=== PATIENT | female | born 1995 | race Caucasian/White ===

== ENCOUNTER 2020-01-26 11:58 | Outpatient (CLI) | payer OTHER, SELFPAY ==
--- NOTE | ~2020-01-26 | MMUS_ITS ---
EXAMINATION: MM diagnostic jacki BI w charbel, US breast BI complete HISTORY: Bilateral breast lumps TECHNIQUE: ML, MLO and craniocaudal 3-D tomosynthesis images of both breasts were performed and synth etic 2-D images were generated. CAD analysis was submitted and interpreted. High resolution bilateral complete breast ultrasound was performed. COMPARISON: None BREAST PARENCHYMAL COMPOSITION: There are scattered areas of fibroglandular density. FINDINGS: MAMMOGRAPHIC FINDINGS: No suspicious mass, architectural distortion, malignant calcification, skin thickening or retraction of either breast is evident. ULTRASOUND: No suspicious mass or shadowing of either breast is detected. IMPRESSION: 1. No mammographic evidence of malignancy 2. Routine mammographic screening is recommended. BI-RADS Category 1: Negative Reviewed, dictated and finalized at location A. 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 No mammographic evidence of malignancy 2. Routine mammographic screening is recommended. BI-RADS Category 1: Negative
== END 2020-01-26 11:59 | disposition home or self-care (01) ==
LOC: ANHIMG 12:00
PROVIDERS: PCP Nurse Practitioner Family; Visit Provider Nurse Practitioner Family
DX: N63.10 Unspecified lump in the right breast, unspecified quadrant (principal); N63.20 Unspecified lump in the left breast, unspecified quadrant
CPT/HCPCS: 76641; 77062; 77066; G0279

== ENCOUNTER 2020-03-16 12:07 | Outpatient (NON) | payer OTHER, SELFPAY ==
[2020-03-17 00:16] LABS: SARS-CoV-2 RNA PCR Negative
== END 2020-03-16 12:08 ==
LOC: ANHCOVIDDT 12:09
PROVIDERS: PCP Nurse Practitioner Family; Visit Provider Family Medicine
DX: R05 Cough (principal); Z20.822 Contact with and (suspected) exposure to COVID-19
CPT/HCPCS: C9803; U0003; U0005

== ENCOUNTER 2020-07-22 11:46 | Emergency (ER) | payer OTHER, SELFPAY ==
--- NOTE | ~2020-07-22 | US_ITS ---
EXAMINATION: US abdomen limited DATE: 07/22/2020 17:10 INDICATION: Right upper quadrant pain TECHNIQUE: Multiple grayscale and Doppler ultrasound images of the abdomen were obtained. COMPARISON: 11/22/2014 FINDINGS: The head and body of the pancreas are normal. The pancreatic tail is obscured by bowel gas. The liver is normal with normal echogenicity and echotexture. No surface nodularity. Normal hepatope richi flow in the main portal vein. There is a questionable focal area of gallbladder wall thickening. No pericholecystic fluid or stones are identified. The normal common bile duct measures 4 mm. There w as no sonographic Rebolledo sign. IMPRESSION: 1. Questionable focal area of gallbladder wall thickening of unclear significance given the absence o f cholelithiasis, pericholecystic fluid, or sonographic Rebolledo sign. Reviewed, dictated and finalized at location A. IMPRESSION: 1. Questionable focal area of gallbladder wall thickening of unclear significan ce given the absence of cholelithiasis, pericholecystic fluid, or sonographic M urphy sign.
--- NOTE | ~2020-07-22 | XR_ITS ---
EXAMINATION: XR chest 2V EXAM DATE: 07/22/2020 12:05 INDICATION: Right-sided chest pain upon inspiration. TECHNIQUE: Frontal and lateral projections of the chest obtained and reviewed. There is no prior skylar dy for comparison. FINDINGS: The lungs are clear. There are no pleural effusions. The cardiomediastinal silhouette is within normal limits. There is no pneumothorax suspected. The bones and soft tissues are unremarkab le. IMPRESSION: No acute cardiopulmonary findings. Reviewed, dictated and finalized at location A.
--- NOTE | ~2020-07-22 | NM_ITS ---
EXAMINATION: NM pulmonary perfusion EXAM DATE: 07/22/2020 15:24 INDICATION: right rib pain, elevated troponin. TECHNIQUE: A perfusion lung scan was performed. The patient was injected with 5.3 mCi technetium 99m MAA and imaged. Modified PIOPED 2 criteria used for interpretation of perfusion without ventilation study (recent chest x-ray instead for comparison). Correlation is made to chest x-ray earlier same da te. FINDINGS: Homogeneous normal perfusion throughout lungs. IMPRESSION: Pulmonary embolism absent. Reviewed, dictated and finalized at location A. IMPRESSION: Pulmonary embolism absent.
[2020-07-22 11:50] VITALS: BP 135/98; PULSE 115; RESP 20; TEMP 37; O2SAT 100
--- NOTE | 2020-07-22 11:55 | ECG_ITS ---
Measurements Intervals [place] Rate: 114 P: 33 [place]: 161 QRS: 47 QRSD: 81 T: 0 QT: 296 QTc: 408 Interpretive Statements SINUS TACHYCARDIA BORDERLINE ST-T WAVE ABNORMALITY- ANT/INF LEADS BASELINE ARTIFACT- III, AVR, AVL ABNORMAL ECG Electronically Signed On 07-22-2020 12:05:18 CDT by Leroy Martin D.O.
[2020-07-22 12:04] LABS: Basophils Absolute Auto 0.1 K/mm3 (0.0-0.1); Basophils Percent Auto 0.5 % (0.2-1.2); Eosinophils Absolute Auto 0.2 K/mm3 (0-0.3); Eosinophils Percent Auto 1.3 % (0-4.4); Hematocrit 44.9 % (37.0-47.0); Hemoglobin 14.2 g/dL (12.0-15.0); Immature Granulocyte Absolute 0.08 K/mm3 (0.00-0.031); Immature Granulocyte Percent A 0.6 % (0-0.5); Lymphocytes Absolute Auto 3.99 K/mm3 (0.9-3.2); Lymphocytes Percent Auto 31.9 % (18.3-44.2); Mean Corpuscular HGB Conc 31.6 g/dl (32-36); Mean Corpuscular Hemoglobin 25.7 pg (26-34); Mean Corpuscular Volume 81.3 fl (80-100); Mean Platelet Volume 8.9 fl (7.4-10.4); Monocytes Absolute Auto 0.7 K/mm3 (0.1-0.6); Monocytes Percent Auto 5.4 % (2.6-8.5); Neutrophils Absolute Auto 7.6 K/mm3 (1.3-6.7); Neutrophils Percent Auto 60.3 % (45.5-73.1); Platelet Count Result 312 k/mm3 (150-375); Red Blood Count 5.52 M/mm3 (4.2-5.4); Red Cell Distribution Width 13.2 % (11.5-14.5); White Blood Count 12.5 K/mm3 (4.5-10.0)
[2020-07-22 12:23] LABS: Anion Gap 10 mmol/L (8-16); Blood Urea Nitrogen 7 mg/dL (7-17); Calcium 9.6 mg/dL (8.4-10.2); Carbon Dioxide 25 mmol/L (22-30); Chloride 105 mmol/L (98-107); Estimated CRCL calculation 94 ml/min; Estimated Glomerular Filt Rate > 60; Glucose 97 mg/dL (65-105); Potassium 3.4 mmol/L (3.4-5.0); Sodium 140 mmol/L (137-145)
--- NOTE | 2020-07-22 12:26 | ED.CHESTPAIN ---
HPI - Chest Pain General Chief Complaint: Chest Pain Stated Complaint: Chest Pain Time Seen by Provider: 07/22/20 12:05 Source: patient and RN notes reviewed Mode of arrival: ambulatory Limitations: no limitations History of Present Illness HPI narrative: This is a 24 year old female who presents for evaluation of pain under her right breast. She developed pain this morning and it has been intermittent. She reports she has pain with she breaths in. She has nausea but denies vomiting, fever, chills, diarrhea or urinary symptoms. She denies having URI, or cough. She does note she received her depot shot yesterday. Related Data Home Medications Medication Instructions Recorded Confirmed albuterol sulfate [ProAir HFA] INHALATION 07/22/20 medroxyprogesterone mg IM 07/22/20 Allergies Allergy/AdvReac Type Severity Reaction Status Date / Time amoxicillin Allergy Mild Rash Verified 03/14/19 18:38 aspirin Allergy Swelling Verified 07/22/20 11:56 of Lip/Tongue/Throat ibuprofen Allergy Swelling Verified 03/14/19 18:39 of Lip/Tongue/Throat Review of Systems Review of Systems: All systems reviewed & are unremarkable except as noted in HPI and below PMFSH Past Medical History Medical History Asthma Surgical History Surgical History No history of previous surgery Social History Social History (Updated 03/14/19 @ 19:27 by Alden Gamino) Smoking status: Former smoker Gender identity (if verbalized by the patient): Female Exam Const: General: no acute distress and alert Orientation/consciousness: patient oriented x3 Eyes: EOM: EOMs intact bilaterally Chest: Chest palpation & inspection: tenderness rib (right lower anterior) Resp: Effort & Inspection: normal respiratory effort and no retractions Auscultation: clear to auscultation bilaterally Cardio: Rate: regular rate Rhythm: regular rhythm Heart sounds: no murmurs GI: GI Palp: Yes Soft to palpation, Yes Tenderness to palpation present (GI) (RUQ), No Guarding due to palpation present (GI) and No Rigid due to palpation Auscultation: normal bowel sounds Skin: General skin exam: normal color Rashes: no rashes Neuro: General: patient oriented x3, moves all extremities and CN's II-XI intact bilaterally Extrem: General: normal to inspection and no pedal edema Psych: Mental Status: mental status grossly normal Affect: normal affect Course Reevaluation(s) Reevaluation #1: PAtient states she is ready for discharge home. She will follow up with PCP Date: 07/22/20 Time: 17:40 Vital Signs Vital signs: Vital Signs Temperature 98.6 F 07/22/20 11:50 Pulse Rate 115 H 07/22/20 11:50 Respiratory Rate 20 07/22/20 11:50 Blood Pressure 135/98 H 07/22/20 11:50 Pulse Oximetry 100 07/22/20 11:50 Temperature 98.6 F 07/22/20 11:50 Pulse Rate 107 H 07/22/20 18:05 Respiratory Rate 16 07/22/20 18:05 Blood Pressure 129/93 H 07/22/20 18:05 Pulse Oximetry 98 07/22/20 18:05 MDM - Chest Pain Lab Data Attestation: I reviewed the patient's lab results. Result diagrams: 07/22/20 11:58 07/22/20 11:58 Labs: Lab Results 07/22/20 07/22/20 07/22/20 Range/Units 11:58 11:58 11:58 WBC 12.5 H (4.5-10.0) K/mm3 RBC 5.52 H (4.2-5.4) M/mm3 Hgb 14.2 (12.0-15.0) g/dL Hct 44.9 (37.0-47.0) % MCV 81.3 (80-100) fl MCH 25.7 L (26-34) pg MCHC 31.6 L (32-36) g/dl RDW 13.2 (11.5-14.5) % Plt Count 312 (150-375) k/mm3 MPV 8.9 (7.4-10.4) fl Immature Gran % (Auto) 0.6 H (0-0.5) % Neut % (Auto) 60.3 (45.5-73.1) % Lymph % (Auto) 31.9 (18.3-44.2) % Meade % (Auto) 5.4 (2.6-8.5) % Eos % (Auto) 1.3 (0-4.4) % Baso % (Auto) 0.5 (0.2-1.2) % Lymph # (Auto) 3.99 H (0.9-3.2) K/mm3 Meade # (Auto) 0.7 H (0.1-
[2020-07-22 12:34] LABS: Troponin I < 0.012 ng/mL (0.000-0.034)
[2020-07-22 13:03] LABS: Prothrombin Time 13.8 Seconds (11.1-14.7)
[2020-07-22 13:04] LABS: Partial Thromboplastin Time 31.7 SECONDS (22.3-36.8)
[2020-07-22] MEDS: LACTATED RINGERS 1,000 ML 999 ML IV CONT (13:04)
[2020-07-22 13:06] LABS: D Dimer 0.52 ug/mL (<0.48)
[2020-07-22 13:11] LABS: Alanine Aminotransferase 28 U/L (4-35); Albumin Level 4.8 g/dL (3.5-5.1); Alkaline Phosphatase 97 U/L (38-126); Aspartate Amino Transferase 33 U/L (14-36); Bilirubin,Total 0.3 mg/dL (0.2-1.3); Lipase 44 U/L (23-300)
[2020-07-22 13:11] LABS: Add Urine Microscopic? YES; Appearance Urine Clear (Clear); Bacteria Urine Trace /hpf; Bilirubin Urine Negative (Negative); Blood Urine 1+ (Negative); Color Urine Straw (Yellow); Glucose Urine UA Negative (Negative); Ketones Urine Negative (Negative); Leukocyte Esterase Ur Trace LEU/UL (Negative); Nitrate Urine Negative (Negative); Protein Urine Negative (Negative); RBC Urine 0-2 /hpf (0-2); Specific Grav Ur 1.006 (1.001-1.035); Squamous Epithelial Cell Urine Moderate /hpf (Few); Urobilinogen Urine Negative mg/dL (<2.0); WBC Urine 0-3 /hpf
[2020-07-22 13:12] LABS: Lactic Acid Reflex 0.9 mmol/L (0.7-2.1)
--- NOTE | 2020-07-22 15:17 | PC.NURSE ---
Pt to nuclear med at this time
[2020-07-22] MEDS: SODIUM CHLORIDE 0.9% IV 1,000 ML 999 ML IV CONT (15:20)
[2020-07-22 15:26] LABS: Troponin I < 0.012 ng/mL (0.000-0.034)
--- NOTE | 2020-07-22 16:51 | PC.NURSE ---
to ultrasound at this time
[2020-07-22 18:05] VITALS: BP 129/93; PULSE 107; RESP 16; O2SAT 98
== END 2020-07-22 18:07 | disposition home or self-care (01) ==
PROVIDERS: Emergency Provider General Practice; PCP Nurse Practitioner Family
DX: R10.9 Unspecified abdominal pain (principal); J45.909 Unspecified asthma, uncomplicated; Z87.891 Personal history of nicotine dependence; R00.0 Tachycardia, unspecified; R94.31 Abnormal electrocardiogram [ECG] [EKG]; R93.2 Abnormal findings on diagnostic imaging of liver and biliary tract
CPT/HCPCS: 36415; 71046; 76705; 78580; 80048; 80076; 81001; 81025; 83605; 83690; 84484; 85025; 85380; 85610; 85730; 93005; 96360; 96361; 99284; A9540; J7030; J7120

== ENCOUNTER 2020-10-07 11:22 | Emergency (ER) | payer OTHER, SELFPAY ==
--- NOTE | ~2020-10-07 | XR_ITS ---
EXAMINATION: XR ankle LT min 3V, XR foot LT min 3V DATE: 10/07/2020 12:02 INDICATION: Lateral left foot and ankle pain post fall TECHNIQUE: 1. Anteroposterior, mortise, additional oblique and lateral view of the left ankle were obtained. 2. Dorsoplantar, two oblique and lateral views of the left foot were obtained. COMPARISON: None. FINDINGS: Alignment of the left foot and ankle is normal. No fracture or osteochondral lesion. Joint spaces are well maintained. No ankle joint effusion. Mild soft tissue swelling about the lateral malleolus. IMPRESSION: 1. No joint effusion or osseous abnormality. Reviewed, dictated and finalized at location A. IMPRESSION: 1. No joint effusion or osseous abnormality.
[2020-10-07 11:28] VITALS: BP 139/96; PULSE 106; RESP 16; TEMP 36.7; O2SAT 99
--- NOTE | 2020-10-07 13:08 | ED.LOWEXIN ---
HPI - Extremity Injury (Lower) General Chief Complaint: Extremity Injury, Lower Stated Complaint: foot injury Time Seen by Provider: 10/07/20 11:27 Source: RN notes reviewed History of Present Illness HPI Narrative: Patient presents emergency department from home for left foot and ankle pain. He states that yesterday she was walking and stepped in a hole twisting her left ankle she notes pain in her left anterior medial ankle as well as in her medial foot states she took Tylenol approximately an hour ago for the pain she denies any other injuries she denies any numbness or tingling of the extremities Related Data Home Medications Medication Instructions Recorded Confirmed albuterol sulfate [ProAir HFA] INHALATION 07/22/20 09/27/20 medroxyprogesterone mg IM 07/22/20 09/27/20 Allergies Allergy/AdvReac Type Severity Reaction Status Date / Time amoxicillin Allergy Mild Rash Verified 10/07/20 11:33 aspirin Allergy Swelling Verified 10/07/20 11:33 of Lip/Tongue/Throat clindamycin Allergy Itching Verified 10/07/20 11:33 ibuprofen Allergy Swelling Verified 10/07/20 11:33 of Lip/Tongue/Throat Review of Systems Review of Systems: Gen.: Denies fevers or chills Musculoskeletal: See HPI Neuro: Denies numbness, tingling, weakness Skin: Denies rash Endo: Denies DM PMFSH Past Medical History Medical History Anxiety Asthma GERD (gastroesophageal reflux disease) Headache Overweight (BMI 25.0-29.9) Surgical History Surgical History No history of previous surgery Family History Family History (Updated 09/27/20 @ 10:47 by Rox Coppola MA) Mother Cancer Social History Social History Smoking status: Former smoker Second hand tobacco smoke exposure: No Alcohol intake: current Alcohol use details: once a month-wine coolers Substance use: never Additional occupation/education comments: [employer] Gender identity (if verbalized by the patient): Female Spiritual care concerns: No Agree to blood products: Yes Exam Narrative: APPEARANCE: No acute distress, nontoxic, resting in bed Eyes: EOMI HEENT: Normocephalic, atraumatic, RESPIRATORY: No respiratory distress MUSCULOSKELETAl: Tender to palpation of the left anterior and medial ankle as well as the left medial foot no swelling or ecchymosis present no tenderness of the proximal fibula dorsalis pedis pulse 2+ neurovascular intact NEURO: Awake and alert. Following commands, speech normal, no focal deficits SKIN:: Warm, dry. Normal Color no rash or lesions Course Course Emergency Course: Discussed with patient results of workup and diagnosis. Discussed need for follow-up with primary care, proper use of medication, and reasons to return to the emergency department. Patient understands and agrees to current treatment plan Vital Signs Vital signs: Vital Signs Temperature 98.0 F 10/07/20 11:28 Pulse Rate 106 H 10/07/20 11:28 Respiratory Rate 16 10/07/20 11:28 Blood Pressure 139/96 H 10/07/20 11:28 Pulse Oximetry 99 10/07/20 11:28 Temperature 98.0 F 10/07/20 11:28 Pulse Rate 106 H 10/07/20 11:28 Respiratory Rate 16 10/07/20 11:28 Blood Pressure 139/96 H 10/07/20 11:28 Pulse Oximetry 99 10/07/20 11:28 MDM - Extremity Injury (Lower) Imaging Data Radiologist's impression: ITS Impressions Ankle X-Ray 10/07/20 12:27 IMPRESSION: 1. No joint effusion or osseous abnormality. Foot X-Ray 10/07/20 12:27 IMPRESSION: 1. No joint effusion or osseous abnormality. Discharge Plan Discharge Clinical Impression: Left ankle sprain Patient Disposition: Home, Self-Care Condition: Stable Instructions: Antibiotic Form, Ankle Sprain (ED) Additional Instructions: Return for increasing pain nu
== END 2020-10-07 13:36 | disposition home or self-care (01) ==
PROVIDERS: Emergency Provider Emergency Medicine; PCP Nurse Practitioner Family
DX: S93.402A Sprain of unspecified ligament of left ankle, initial encounter (principal); J45.909 Unspecified asthma, uncomplicated; K21.9 Gastro-esophageal reflux disease without esophagitis; E66.3 Overweight; Z68.28 Body mass index [BMI] 28.0-28.9, adult; Z87.891 Personal history of nicotine dependence; X50.9XXA Other and unspecified overexertion or strenuous movements or postures, initial encounter
CPT/HCPCS: 73610; 73630; 99283

== ENCOUNTER → 2020-11-12 08:28 | Outpatient (CLI) | payer OTHER, SELFPAY ==
[2020-11-12 18:57] LABS: SARS-CoV-2 RNA PCR Negative
== END ==
PROVIDERS: PCP Nurse Practitioner Family; Visit Provider Nurse Practitioner Family
DX: J02.9 Acute pharyngitis, unspecified (principal); Z20.822 Contact with and (suspected) exposure to COVID-19
CPT/HCPCS: C9803; U0003; U0005

== ENCOUNTER 2020-11-26 12:23 | Outpatient (CLI) | payer OTHER, SELFPAY ==
--- NOTE | 2020-11-26 | ECHO_ITS ---
Patient Info Name: Mani Ordaz Age: 25 years : 1995 Gender: Female Ht: 62 in Wt: 157 lbs BSA: 1.79 m2 HR: 105 bpm BP: 120 / 101 mmHg Technical Quality: Fair Exam Date: 11/26/2020 12:39 PM Exam Location: [facility] Patient Status: Outpatient Admit Date: 11/26/2020 Staff Ordering Physician: Clovis, Rosy BARBOZA Inspector Balance Bridge: Xiomara Beltrán RDCS Attending Provider: Clovis, Rosy BARBOZA Exam Type: CA echo doppler color flow Study Info Indications R55 - Syncope and collapse Complete two-dimensional, color flow and Doppler transthoracic echocardiogram is performed. Summary 1. Complete two-dimensional, color flow and Doppler transthoracic echocardiogram is performed. 2. Left ventricular chamber dimension is normal. 3. Left ventricular systolic function is normal, estimated at 60-65%. 4. The left ventricular diastolic function is grade I diastolic dysfunction. 5. E/e' 6 is not elevated. 6. Global longitudinal strain is abnormal at -15.8%. 7. There is trace mitral valve regurgitation. 8. No pulmonary hypertension, estimated pulmonary arterial systolic pressure is 22 mmHg. 9. There is trivial pericardial effusion. Left Ventricle E/e' 6 is not elevated. Global longitudinal strain is abnormal at -15.8%. Left ventricular chamber dimension is normal. Left ventricular systolic function is normal, estimated at 60-65%. The left ventricular diastolic function is grade I diastolic dysfunction. Right Ventricle Right ventricular chamber dimension is normal. Right ventricular systolic function is normal. Left Atria Left atrial chamber dimension is normal. Right Atria Right atrial chamber dimension is normal. Aortic Valve The aortic valve is trileaflet. There is no aortic valve stenosis. There is no aortic valve regurgitation. Pulmonic Valve There is no pulmonic regurgitation. Mitral Valve There is no mitral valve stenosis. There is trace mitral valve regurgitation. Tricuspid Valve There is no tricuspid valve regurgitation. No pulmonary hypertension, estimated pulmonary arterial systolic pressure is 22 mmHg. Pericardium/Pleural There is trivial pericardial effusion. Inferior Vena Cava Normal inferior vena cava with >50% collapse upon inspiration consistent with normal right atrial pressure, 5 mmHg. Aorta The aortic root size at the sinus of Valsalva is normal. Left Ventricular Outflow Tract Name Value Normal LVOT 2D LVOT Diameter 1.9 cm LVOT Doppler LVOT Peak Gradient 5 mmHg LVOT Mean Gradient 3 mmHg LVOT VTI 20 cm LVOT VTI/AV VTI Ratio 1.0 LVOT Stroke Volume 57 ml LVOT CO 5.9 l/min LVOT CI 3.3 l/min/m2 Pulmonic Valve Name Value Normal RVOT Doppler
== END 2020-11-26 12:24 | disposition home or self-care (01) ==
LOC: ANHCARD 12:24
PROVIDERS: PCP Nurse Practitioner Family; Visit Provider Nurse Practitioner Family
DX: R55 Syncope and collapse (principal)
CPT/HCPCS: 93306

== ENCOUNTER → 2021-03-11 03:33 | Outpatient (CLI) | payer OTHER, SELFPAY ==
[2021-03-12 22:39] LABS: SARS-CoV-2 RNA PCR Positive
== END ==
PROVIDERS: PCP Nurse Practitioner Family; Visit Provider Family Medicine
DX: U07.1 COVID-19 (principal)
CPT/HCPCS: C9803; U0003; U0005

== ENCOUNTER 2021-05-03 11:26 | Outpatient (CLI) | payer OTHER, SELFPAY ==
--- NOTE | ~2021-05-03 | US_ITS ---
EXAMINATION: US breast RT limited HISTORY: Palpable lump at the 9:00 location of the right breast TECHNIQUE: Limited right breast ultrasound is performed. COMPARISON: 01/26/2020 FINDINGS: There is no evidence of focal abnormal cystic or solid mass in the vicinity of the reported palpable abnormality of concern of the right breast IMPRESSION: No specific sonographic correlate is identified for the reported palpable abnormality of concern. Fur ther evaluation at this time should be based on clinical assessment. Continued follow-up physical exa mination is recommended. BI-RADS Category 1: Negative Reviewed, dictated and finalized at location A. 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 Further evaluation at this time should be based on clinical assessment. Continued follow-up physical examination is recommended. BI-RADS Category 1: Negative
== END 2021-05-03 11:27 | disposition home or self-care (01) ==
LOC: ANHIMG 11:27
PROVIDERS: PCP Nurse Practitioner Family; Visit Provider Obstetrics & Gynecology
DX: N63.0 Unspecified lump in unspecified breast (principal)
CPT/HCPCS: 76642

== ENCOUNTER 2021-08-16 17:27 | Emergency (ER) | payer OTHER, SELFPAY ==
--- NOTE | ~2021-08-16 | NM_ITS ---
EXAMINATION: NM pulmonary perfusion DATE: 08/16/2021 21:37 INDICATION: Dizziness, tachycardia, elevated d-dimer TECHNIQUE: 5.02 mCi Tc-99m MAA was administered intravenously for perfusion images. Scintigraphic jack ges of the chest were obtained. COMPARISON: X-ray chest, same date FINDINGS: Perfusion images show uniform activity, without defects. IMPRESSION: 1. Low probability for pulmonary embolism. Reviewed, dictated and finalized at location K.
--- NOTE | ~2021-08-16 | XR_ITS ---
EXAMINATION: XR chest 2V Exam Date/Time: 08/16/2021 18:15 CDT HISTORY: dizzness, palpitations Comparison: 07/22/2020. RESULT: Lines, tubes, and devices: None. Lungs and pleura: Clear. Cardiomediastinal silhouette: Stable cardiomediastinal silhouette. Other: No acute osseous or upper abdominal finding. IMPRESSION: No acute cardiopulmonary process. Reviewed, dictated and finalized at location K.
[2021-08-16 17:30] VITALS: BP 137/102; PULSE 119; RESP 18; TEMP 36.8; O2SAT 99
--- NOTE | 2021-08-16 17:50 | ED.ARRPALP ---
HPI - Arrhythmia/Palpitations General Chief Complaint: Arrhythmia/Palpitations Stated Complaint: high blood pressure/high hr Time Seen by Provider: 08/16/21 17:49 Source: patient Mode of arrival: ambulatory Limitations: no limitations History of Present Illness HPI narrative: Patient is a 25-year-old female, with history of asthma, who presents to the ED with report of dizziness. 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 She described the dizziness as though the room was spinning and that she was going to pass out. She did not lose consciousness. She states her heart was racing at that time. She was sent down by the employees in front of a fan and began to feel slightly better. Patient notes her blood pressure was elevated at that time. No history of hypertension. Initial blood pressure in ED 137/102. Repeat blood pressure approximately 30 minutes later normal at 138/87. Patient also reports having pain to her lateral abdomen on her left and right side in the ED bed. She states she was diagnosed with a UTI on 08/07 at [facility]. She is started on this Keflex and has been taking this as directed. She states her dysuria and urinary frequency have resolved, but she is now having mild pain in her sides. She is concerned the infection may have spread to her kidneys due to this pain. Currently, patient reports dizziness is resolved. She denies any headache, vision changes, fever, nausea, vomiting, chest pain, difficulty breathing. Related Data Home Medications Medication Instructions Recorded Confirmed albuterol sulfate 90 mcg/actuation inhalation 07/22/20 04/12/21 aerosol inhaler (ProAir HFA) medroxyprogesterone 150 mg/mL mg IM 07/22/20 04/12/21 intramuscular syringe Allergies Allergy/AdvReac Type Severity Reaction Status Date / Time amoxicillin Allergy Mild Rash Verified 06/22/21 10:37 Iodinated Contrast Media Allergy Mild Rash Verified 06/22/21 10:37 aspirin Allergy Swelling Verified 06/22/21 10:37 of Lip/Tongue/Throat clindamycin Allergy Itching Verified 06/22/21 10:37 ibuprofen Allergy Swelling Verified 06/22/21 10:37 of Lip/Tongue/Throat seafood AdvReac Mild Hives Uncoded 06/22/21 10:37 Review of Systems Review of Systems: CONSTITUTIONAL: Reports diaphoresis. Denies fever, chills. ENT: Denies vision changes. CARDIOVASCULAR: Reports racing palpitations. Denies chest pain or edema. RESPIRATORY: Denies cough or dyspnea. GASTROINTESTINAL: Reports pain to bilateral abdominal sides. Denies nausea, vomiting, or diarrhea. GENITOURINARY: Denies dysuria or hematuria. MUSCULOSKELETAL: Denies back pain, joint pain, or myalgia. NEUROLOGIC: Reports dizziness, improved. Denies syncope, headache, numbness, or weakness. All systems reviewed & are unremarkable except as noted in HPI and below [facility] Past Medical History Medical History Anemia Anxiety Asthma Breast lump or mass GERD (gastroesophageal reflux disease) Headache History of kidney stones Migraines Nipple discharge in antepartum period Overweight (BMI 25.0-29.9) Pneumonia Surveillance for Depo-Provera contraception Urinary tract infection Surgical History Surgical History No history of previous surgery Family History Family History (Updated 04/11/21 @ 15:23 by Sherie Brand) Mother Cancer Grandparent Diabetes mellitus paternal grandmother Hypertension paternal grandmother Other Seizure daughter Social History Social History Smoking status: Former smoker Second hand tobacco smoke exposure: No Alcohol intake: current Alcohol use details: once a month-wine coolers Substance use: never Additional occupation/education comments: [employer]
--- NOTE | 2021-08-16 17:53 | ECG_ITS ---
Measurements Intervals [place] Rate: 100 P: 36 [place]: 160 QRS: 54 QRSD: 85 T: 2 QT: 321 QTc: 415 Interpretive Statements SINUS TACHYCARDIA NONSPECIFIC ST ABNORMALITY ABNORMAL ECG COMPARED TO ECG 07/22/2020 11:54:54 NO SIGNIFICANT CHANGES Electronically Signed On 08-17-2021 9:59:07 CDT by Cory Lozano M.D.
[2021-08-16] MEDS: SODIUM CHLORIDE 0.9% IV 1,000 ML 999 ML IV CONT (17:58)
[2021-08-16 18:04] VITALS: BP 137/85; PULSE 101
[2021-08-16 18:05] VITALS: BP 138/87; PULSE 100
[2021-08-16 18:06] VITALS: BP 125/91; PULSE 103
[2021-08-16 18:13] LABS: Basophils Absolute Auto 0.1 K/mm3 (0.0-0.1); Basophils Percent Auto 0.5 % (0.2-1.2); Eosinophils Absolute Auto 0.2 K/mm3 (0-0.3); Eosinophils Percent Auto 1.4 % (0-4.4); Hematocrit 46.3 % (37.0-47.0); Hemoglobin 14.6 g/dL (12.0-15.0); Immature Granulocyte Absolute 0.07 K/mm3 (0.00-0.031); Immature Granulocyte Percent A 0.5 % (0-0.5); Lymphocytes Absolute Auto 3.97 K/mm3 (0.9-3.2); Mean Corpuscular HGB Conc 31.5 g/dl (32-36); Mean Corpuscular Hemoglobin 25.2 pg (26-34); Monocytes Absolute Auto 0.7 K/mm3 (0.1-0.6); Neutrophils Absolute Auto 9.7 K/mm3 (1.3-6.7); Neutrophils Percent Auto 65.6 % (45.5-73.1); Platelet Count Result 323 k/mm3 (150-375); Red Blood Count 5.79 M/mm3 (4.2-5.4); Red Cell Distribution Width 13.9 % (11.5-14.5); White Blood Count 14.7 K/mm3 (4.5-10.0)
[2021-08-16 18:23] LABS: Alanine Aminotransferase 29 U/L (6-35); Albumin Level 4.7 g/dL (3.5-5.1); Alkaline Phosphatase 116 U/L (38-126); Anion Gap 9 mmol/L (8-16); Aspartate Amino Transferase 28 U/L (14-36); Bilirubin,Total 0.3 mg/dL (0.2-1.3); Blood Urea Nitrogen 11 mg/dL (7-17); Calcium 9.5 mg/dL (8.4-10.2); Carbon Dioxide 23 mmol/L (22-30); Chloride 106 mmol/L (98-107); Estimated Glomerular Filt Rate > 60; Glucose 94 mg/dL (65-110); Potassium 3.8 mmol/L (3.4-5.0); Sodium 138 mmol/L (137-145)
[2021-08-16 18:35] LABS: Troponin I < 0.012 ng/mL (0.000-0.034)
[2021-08-16 19:03] LABS: D Dimer 0.55 ug/mL (<0.48)
[2021-08-16 19:30] LABS: Appearance Urine Clear (Clear); Bilirubin Urine Negative (Negative); Color Urine Yellow (Yellow); Glucose Urine UA Negative (Negative); Ketones Urine Trace mg/dL (Negative); Leukocyte Esterase Ur Negative LEU/UL (Negative); Nitrate Urine Negative (Negative); Protein Urine Negative (Negative); Urobilinogen Urine 0.2 mg/dL (<2.0); pH Urine 5.5 (5.0-9.0)
[2021-08-16 19:36] LABS: RBC Urine 0-2 /hpf (0-2); Squamous Epithelial Cell Urine Few /hpf (Few); Transitional Epi Cells Urine Rare /hpf (None Seen); WBC Urine 0-3 /hpf
[2021-08-16 19:44] LABS: Add Urine Microscopic? YES; Blood Urine Trace-Intact (Negative)
--- NOTE | 2021-08-16 21:22 | PC.NURSE ---
patient taken to imaging for VQ scan at this time
[2021-08-16 22:25] VITALS: BP 118/85; PULSE 112; RESP 23; O2SAT 98
== END 2021-08-16 22:26 | disposition home or self-care (01) ==
PROVIDERS: Physician Assistant; Emergency Provider Emergency Medicine; PCP Nurse Practitioner Family
DX: R42 Dizziness and giddiness (principal); R00.2 Palpitations; J45.909 Unspecified asthma, uncomplicated; K21.9 Gastro-esophageal reflux disease without esophagitis; Z87.442 Personal history of urinary calculi; Z87.01 Personal history of pneumonia (recurrent); Z87.440 Personal history of urinary (tract) infections; E66.3 Overweight; Z87.891 Personal history of nicotine dependence; R00.0 Tachycardia, unspecified; R94.31 Abnormal electrocardiogram [ECG] [EKG]
CPT/HCPCS: 36415; 71046; 78580; 80053; 81001; 81025; 84484; 85025; 85380; 93005; 96360; 99284; A9540; J7030

== ENCOUNTER 2021-10-14 20:37 | Emergency (ER) | payer OTHER, SELFPAY ==
--- NOTE | ~2021-10-14 | CT_ITS ---
EXAMINATION: CT abdomen pelvis wo con DATE: 10/14/2021 21:35 INDICATION: Right upper quadrant abdominal pain. History of kidney stones. TECHNIQUE: Computed tomography (CT) of the abdomen and pelvis was performed without intravenous contr ast. The dose-length product was 442.02 mGy-cm. Automated exposure control and iterative reconstruction technique were employed. COMPARISON: None. FINDINGS: Lung bases are unremarkable. Heart size normal. No significant pleural or pericardial effus ion. Colonic diverticulosis without evidence for diverticulitis. No significant vascular abnormality. No lymphadenopathy. Gallbladder is contracted. The liver, spleen, pancreas, adrenal glands and kidne ys are unremarkable. No renal or ureteral stones. No hydronephrosis. Bladder is decompressed limiting evaluation for wall thickening. No abnormal pelvic masses or fluid collections. Small fat-containing umbilical hernia. No acute osseous abnormality. IMPRESSION: 1. No acute abdominal abnormality. Reviewed, dictated and finalized at location A.
--- NOTE | 2021-10-14 20:56 | ED.ABDPAIN ---
HPI - Abdominal Pain General Chief Complaint: Abdominal Pain Stated Complaint: upper right quadrant pain Time Seen by Provider: 10/14/21 20:48 Source: patient Mode of arrival: ambulatory Limitations: no limitations History of Present Illness HPI narrative: This is a 26 year old female that presents to the ER for RUQ abdominal pain present over the last week. Reports the pain is constant in nature. No known alleviating or exacerbating factors. She has been taking Tylenol with little relief. Denies fever, vomiting, dysuria or hematuria. Related Data Home Medications Medication Instructions Recorded Confirmed albuterol sulfate 90 mcg/actuation inhalation 07/22/20 04/12/21 aerosol inhaler (ProAir HFA) medroxyprogesterone 150 mg/mL mg IM 07/22/20 04/12/21 intramuscular syringe Allergies Allergy/AdvReac Type Severity Reaction Status Date / Time amoxicillin Allergy Mild Rash Verified 10/14/21 21:24 Iodinated Contrast Media Allergy Mild Rash Verified 10/14/21 21:24 aspirin Allergy Swelling Verified 10/14/21 21:24 of Lip/Tongue/Throat clindamycin Allergy Itching Verified 10/14/21 21:24 ibuprofen Allergy Swelling Verified 10/14/21 21:24 of Lip/Tongue/Throat seafood AdvReac Mild Hives Uncoded 09/15/21 15:03 Review of Systems Review of Systems: CONSTITUTIONAL: Denies fever GASTROINTESTINAL: Reports abdominal pain, nausea. Denies vomiting, or diarrhea. GENITOURINARY: Denies dysuria or hematuria. All systems reviewed & are unremarkable except as noted in HPI and below PMFSH Past Medical History Medical History Anemia Anxiety Asthma Breast lump or mass GERD (gastroesophageal reflux disease) Headache History of kidney stones Migraines Nipple discharge in antepartum period Overweight (BMI 25.0-29.9) Pneumonia Surveillance for Depo-Provera contraception Urinary tract infection Surgical History Surgical History No history of previous surgery Family History Family History (Updated 04/11/21 @ 15:23 by Sherie Brand) Mother Cancer Grandparent Diabetes mellitus paternal grandmother Hypertension paternal grandmother Other Seizure daughter Social History Social History (Reviewed 08/16/21 @ 17:50 by KRISTY De La Torre Smoking status: Former smoker Second hand tobacco smoke exposure: No Alcohol intake: current Alcohol use details: once a month-wine coolers Substance use: never Additional occupation/education comments: [employer] Gender identity (if verbalized by the patient): Female Sexual Orientation (if Verbalized by the Patient): Straight or Heterosexual Spiritual care concerns: No Agree to blood products: Yes Exam Narrative: GENERAL: Well-appearing, well-nourished, and in no acute distress. HEAD: Normocephalic, atraumatic. EYES: EOMI. CHEST: Clear to auscultation. No respiratory distress. No wheezes rales or rhonchi HEART: Regular rate and rhythm. No murmur heard. Normal peripheral pulses. ABDOMEN: Soft, nondistended, normal active bowel sounds. Tender to palpation in the RUQ, without guarding. No CVA tenderness EXTREMITIES: Normal range of motion. No edema. SKIN: Warm, dry, no rash. NEURO: No focal deficits. Alert and oriented x3. PSYCH: Normal mood and affect Course Vital Signs Vital signs: Vital Signs Pulse Rate 111 H 10/14/21 21:21 Respiratory Rate 16 10/14/21 21:21 Blood Pressure 123/79 10/14/21 21:21 Pulse Oximetry 99 10/14/21 21:21 Oxygen Delivery Room Air 10/14/21 21:21 Pulse Rate 111 H 10/14/21 21:21 Respiratory Rate 16 10/14/21 21:21 Blood Pressure 123/79 10/14/21 21:21 Pulse Oximetry 99 10/14/21 21:21 Oxygen Delivery Room Air 10/14/21 21:21 MDM - Abdominal Pain MDM Narrative Medical decision making narrative: Patient presents to the emergency dep
[2021-10-14 21:21] VITALS: BP 123/79; PULSE 111; RESP 16; O2SAT 99
[2021-10-14 21:35] LABS: Basophils Absolute Auto 0.1 K/mm3 (0.0-0.1); Basophils Percent Auto 0.6 % (0.2-1.2); Eosinophils Absolute Auto 0.2 K/mm3 (0-0.3); Eosinophils Percent Auto 1.3 % (0-4.4); Hematocrit 46.6 % (37.0-47.0); Hemoglobin 14.4 g/dL (12.0-15.0); Immature Granulocyte Absolute 0.08 K/mm3 (0.00-0.031); Immature Granulocyte Percent A 0.5 % (0-0.5); Lymphocytes Absolute Auto 4.81 K/mm3 (0.9-3.2); Lymphocytes Percent Auto 30.4 % (18.3-44.2); Mean Corpuscular HGB Conc 30.9 g/dl (32-36); Mean Corpuscular Hemoglobin 25.1 pg (26-34); Mean Corpuscular Volume 81.3 fl (80-100); Mean Platelet Volume 9.4 fl (7.4-10.4); Monocytes Absolute Auto 0.8 K/mm3 (0.1-0.6); Monocytes Percent Auto 4.8 % (2.6-8.5); Neutrophils Absolute Auto 9.9 K/mm3 (1.3-6.7); Neutrophils Percent Auto 62.4 % (45.5-73.1); Platelet Count Result 353 k/mm3 (150-375); Red Blood Count 5.73 M/mm3 (4.2-5.4); White Blood Count 15.8 K/mm3 (4.5-10.0)
[2021-10-14 21:36] LABS: Appearance Urine Clear (Clear); Bilirubin Urine Negative (Negative); Blood Urine Negative (Negative); Color Urine Yellow (Yellow); Glucose Urine UA Negative (Negative); Ketones Urine Negative (Negative); Leukocyte Esterase Ur 1+ LEU/UL (Negative); Nitrate Urine Negative (Negative); Protein Urine Negative (Negative); Urobilinogen Urine 0.2 mg/dL (<2.0); pH Urine 5.5 (5.0-9.0)
[2021-10-14 21:40] LABS: Amorphous Sediment Urine Few; Bacteria Urine Trace /hpf; Mucus Urine Rare /lpf; Squamous Epithelial Cell Urine Few /hpf (Few)
[2021-10-14 21:41] LABS: Add Urine Microscopic? YES
[2021-10-14] MEDS: SODIUM CHLORIDE 0.9% IV 1,000 ML 999 ML IV CONT (21:43)
[2021-10-14 21:44] LABS: Alanine Aminotransferase 22 U/L (6-35); Alkaline Phosphatase 99 U/L (38-126); Anion Gap 13 mmol/L (8-16); Aspartate Amino Transferase 27 U/L (14-36); Bilirubin,Total 0.3 mg/dL (0.2-1.3); Blood Urea Nitrogen 11 mg/dL (7-17); Calcium 9.8 mg/dL (8.4-10.2); Carbon Dioxide 25 mmol/L (22-30); Chloride 102 mmol/L (98-107); Estimated CRCL calculation 86 ml/min; Estimated Glomerular Filt Rate > 60; Glucose 88 mg/dL (65-110); Lipase 121 U/L (23-300); Potassium 3.7 mmol/L (3.4-5.0); Sodium 140 mmol/L (137-145)
[2021-10-14 22:46] VITALS: BP 123/79; PULSE 107; RESP 16; TEMP 36.9; O2SAT 99
== END 2021-10-14 22:47 | disposition home or self-care (01) ==
PROVIDERS: Physician Assistant; Emergency Provider General Practice; PCP Nurse Practitioner Family
DX: N30.00 Acute cystitis without hematuria (principal); J45.909 Unspecified asthma, uncomplicated; K21.9 Gastro-esophageal reflux disease without esophagitis; E66.3 Overweight; Z68.29 Body mass index [BMI] 29.0-29.9, adult; Z86.2 Personal history of diseases of the blood and blood-forming organs and certain disorders involving the immune mechanism; Z87.01 Personal history of pneumonia (recurrent); Z87.442 Personal history of urinary calculi; Z87.891 Personal history of nicotine dependence
CPT/HCPCS: 36415; 74176; 80053; 81001; 81025; 83690; 85025; 87086; 87088; 96360; 99284; J7030

== ENCOUNTER 2022-03-20 10:38 | Outpatient (CLI) | payer OTHER, SELFPAY ==
[2022-03-20 11:28] LABS: Beta HCG Quantitative < 2.39 mIU/ML
== END 2022-03-20 10:39 | disposition home or self-care (01) ==
LOC: ANHLAB 10:40
PROVIDERS: PCP Nurse Practitioner Family; Visit Provider Obstetrics & Gynecology
DX: Z30.9 Encounter for contraceptive management, unspecified (principal)
CPT/HCPCS: 36415; 84702

== ENCOUNTER 2022-04-20 08:58 | Emergency (ER) | payer OTHER, SELFPAY ==
--- NOTE | ~2022-04-20 | CT_ITS ---
EXAMINATION: CT abdomen pelvis wo con DATE: 04/20/2022 12:44 INDICATION: Right flank pain. Dysuria. TECHNIQUE: Computed tomography (CT) of the abdomen and pelvis was performed without intravenous contr ast. Automated exposure control and iterative reconstruction technique were employed. The dose-length product was 358.97 mGy-cm. COMPARISON: CT abdomen and pelvis 10/14/2021 FINDINGS: The visualized portions of the lung bases are clear without pneumonia or pleural effusion. The heart size is normal. No pericardial effusion. The liver, gallbladder, spleen, pancreas, adrenal glands, and kidneys are normal. There is no urolithiasis. There are no dilated loops of bowel. The ap pendix is normal. There are no pathologically enlarged lymph nodes. There is no free intraperitoneal fluid. There is mild lumbar spondylosis. IMPRESSION: 1. No urolithiasis. Reviewed, dictated and finalized at location A. [employer] IMPRESSION: 1. No urolithiasis.
[2022-04-20 09:10] VITALS: BP 139/86; PULSE 98; RESP 18; TEMP 37.3; O2SAT 99
--- NOTE | 2022-04-20 11:25 | PC.NURSE ---
Pt attempting to urinate at this time
[2022-04-20 11:29] VITALS: BP 141/99; PULSE 101; RESP 18; O2SAT 99
--- NOTE | 2022-04-20 11:38 | ED.ABDPAIN ---
HPI - Abdominal Pain General Chief Complaint: Abdominal Pain Stated Complaint: right side pain - hx of kidney stones Time Seen by Provider: 04/20/22 11:07 History of Present Illness HPI narrative: 26-year-old female here for evaluation of right-sided flank pain over the past day in addition to dysuria and urgency. States that she has a history of kidney infections and states this feels similar. Last infection was about a month ago and she was placed on Keflex with relief of her symptoms. Has not taken any medicine for pain. Denies any hematuria, fevers or chills, nausea or vomiting. Related Data Home Medications Medication Instructions Recorded Confirmed albuterol sulfate 90 mcg/actuation inhalation 07/22/20 02/08/22 aerosol inhaler (ProAir HFA) Allergies Allergy/AdvReac Type Severity Reaction Status Date / Time escitalopram [From Lexapro] Allergy Severe Hives Verified 04/20/22 08:58 amoxicillin Allergy Mild Rash Verified 04/20/22 08:58 Iodinated Contrast Media Allergy Mild Rash Verified 04/20/22 08:58 aspirin Allergy Swelling Verified 04/20/22 08:58 of Lip/Tongue/Throat clindamycin Allergy Itching Verified 04/20/22 08:58 ibuprofen Allergy Swelling Verified 04/20/22 08:58 of Lip/Tongue/Throat seafood AdvReac Mild Hives Uncoded 04/20/22 08:58 Review of Systems Review of Systems: Gen.: Denies fevers or chills Eyes: Denies eye pain or visual change ENT: Denies congestion Respiratory: Denies shortness of breath or cough CV: Denies chest pain or palpitations GI: Denies abdominal pain nausea, emesis or diarrhea reports dysuria Musculoskeletal: Reports flank pain. Neuro: Denies numbness, tingling, weakness or focal weakness Skin: Denies rash Except as documented, all other systems reviewed and negative [facility] Past Medical History Medical History Anemia Anxiety Asthma Breast lump or mass Depression Encounter for screening examination for sexually transmitted disease GERD (gastroesophageal reflux disease) Headache History of kidney stones Initiation of Depo Provera Migraines Nipple discharge in antepartum period Overweight (BMI 25.0-29.9) Pneumonia Surveillance for Depo-Provera contraception Urinary tract infection Surgical History Surgical History No history of previous surgery Family History Family History Mother Cancer Grandparent Diabetes mellitus paternal grandmother Hypertension paternal grandmother Other Seizure daughter Social History Social History (Updated 02/08/22 @ 10:33 by WILBERT Richards) Smoking status: Former smoker Second hand tobacco smoke exposure: No Alcohol intake: current Alcohol use details: once a month-wine coolers Substance use: never Substance use type: does not use Living arrangements: other Additional living arrangements comments: lives with grandmother Occupation/Education: occupation Additional occupation/education comments: [employer] Gender identity (if verbalized by the patient): Female Sexual Orientation (if Verbalized by the Patient): Bisexual Spiritual care concerns: No Agree to blood products: Yes Exam Narrative: APPEARANCE: Well appearing, no pain in distress, well-nourished. Head: Normocephalic and atraumatic. EYES: PERRLA/EOMI, conjunctivae clear NOSE: No nasal drainage EARS: External ear normal in appearance THROAT: Oropharynx is clear. Mucous membranes are moist. NECK: Supple. No adenopathy, no masses. RESPIRATORY: Airway patent, respirations nonlabored. Clear to auscultation bilaterally, no rales, rhonchi, wheezing. CARDIOVASCULAR: Regular rate and rhythm without murmurs, rubs, or gallops. ABDOMINAL: Normoactive bowel sounds. Soft, nontender, nondistended. No rebound tenderness or g
[2022-04-20 11:43] LABS: Appearance Urine Slightly Cloudy (Clear); Bilirubin Urine Negative (Negative); Blood Urine 1+ (Negative); Color Urine Yellow (Yellow); Glucose Urine UA Negative (Negative); Ketones Urine Negative (Negative); Leukocyte Esterase Ur 3+ LEU/UL (Negative); Nitrate Urine Negative (Negative); Protein Urine Negative (Negative); Specific Grav Ur 1.015 (1.001-1.035); Urobilinogen Urine 0.2 mg/dL (<2.0); pH Urine 5.5 (5.0-9.0)
[2022-04-20 11:52] LABS: Bacteria Urine Trace /hpf; Mucus Urine Rare /lpf; Squamous Epithelial Cell Urine Many /hpf (Few); WBC Urine >75 /hpf
[2022-04-20 11:53] LABS: Add Urine Microscopic? YES
[2022-04-20 12:16] LABS: Basophils Absolute Auto 0.1 K/mm3 (0.0-0.1); Basophils Percent Auto 0.7 % (0.2-1.2); Eosinophils Absolute Auto 0.3 K/mm3 (0-0.3); Eosinophils Percent Auto 1.8 % (0-4.4); Hematocrit 40.8 % (37.0-47.0); Hemoglobin 13.1 g/dL (12.0-15.0); Immature Granulocyte Percent A 0.7 % (0-0.5); Lymphocytes Absolute Auto 4.28 K/mm3 (0.9-3.2); Lymphocytes Percent Auto 28.5 % (18.3-44.2); Mean Corpuscular HGB Conc 32.1 g/dl (32-36); Mean Corpuscular Hemoglobin 25.6 pg (26-34); Mean Corpuscular Volume 79.7 fl (80-100); Monocytes Absolute Auto 0.8 K/mm3 (0.1-0.6); Monocytes Percent Auto 5.5 % (2.6-8.5); Neutrophils Absolute Auto 9.4 K/mm3 (1.3-6.7); Neutrophils Percent Auto 62.8 % (45.5-73.1); Platelet Count Result 286 k/mm3 (150-375); Red Blood Count 5.12 M/mm3 (4.2-5.4); Red Cell Distribution Width 14.2 % (11.5-14.5)
[2022-04-20 12:26] LABS: Alanine Aminotransferase 32 U/L (6-35); Albumin Level 4.5 g/dL (3.5-5.1); Alkaline Phosphatase 100 U/L (38-126); Anion Gap 5 mmol/L (8-16); Aspartate Amino Transferase 24 U/L (14-36); Bilirubin,Total 0.4 mg/dL (0.2-1.3); Blood Urea Nitrogen 11 mg/dL (7-17); Carbon Dioxide 27 mmol/L (22-30); Chloride 104 mmol/L (98-107); Estimated CRCL calculation 85 ml/min; Estimated Glomerular Filt Rate > 60; Glucose 101 mg/dL (65-110); Potassium 3.7 mmol/L (3.4-5.0); Sodium 136 mmol/L (137-145)
== END 2022-04-20 13:47 | disposition home or self-care (01) ==
PROVIDERS: Emergency Medicine; Emergency Provider Physician Assistant; PCP Nurse Practitioner Family
DX: N39.0 Urinary tract infection, site not specified (principal); J45.909 Unspecified asthma, uncomplicated; K21.9 Gastro-esophageal reflux disease without esophagitis; E66.3 Overweight; Z68.28 Body mass index [BMI] 28.0-28.9, adult; Z87.442 Personal history of urinary calculi; Z87.01 Personal history of pneumonia (recurrent); Z87.891 Personal history of nicotine dependence; F41.9 Anxiety disorder, unspecified; F32.A Depression, unspecified
CPT/HCPCS: 36415; 74176; 80053; 81001; 81025; 85025; 87086; 87088; 99284

== ENCOUNTER 2022-07-25 21:26 | Emergency (ER) | payer OTHER, SELFPAY ==
--- NOTE | ~2022-07-25 | CT_ITS ---
EXAMINATION: CT abdomen pelvis wo con DATE: 07/26/2022 01:05 INDICATION: Left flank pain. Nausea and vomiting. TECHNIQUE: Computed tomography (CT) of the abdomen and pelvis was performed without intravenous contr ast. Automated exposure control and iterative reconstruction technique were employed. The dose-length product was 390.98 mGy-cm. COMPARISON: CT abdomen and pelvis 04/20/2022 FINDINGS: The visualized portions of the lung bases are clear without pneumonia or pleural effusion. The heart size is normal. No pericardial effusion. The liver, spleen, gallbladder, pancreas, adrenal glands, and kidneys are normal. There is no urolithiasis. There are no dilated loops of bowel. The ap pendix is normal. There are no pathologically enlarged lymph nodes. There is no free intraperitoneal fluid. There is thoracolumbar levocurvature. IMPRESSION: 1. No urolithiasis. Reviewed, dictated and finalized at location A. IMPRESSION: 1. No urolithiasis.
[2022-07-25 21:29] VITALS: BP 136/101; PULSE 112; RESP 14; TEMP 36.8; O2SAT 99
[2022-07-25 21:32] LABS: Glucose Point of Care 111 mg/dl (65-105)
[2022-07-25 21:51] LABS: Hematocrit 46.7 % (37.0-47.0); Hemoglobin 14.8 g/dL (12.0-15.0); Mean Corpuscular HGB Conc 31.7 g/dl (32-36); Mean Corpuscular Volume 82.1 fl (80-100); Mean Platelet Volume 9.2 fl (7.4-10.4); Platelet Count Result 332 k/mm3 (150-375); Red Blood Count 5.69 M/mm3 (4.2-5.4); Red Cell Distribution Width 13.7 % (11.5-14.5)
[2022-07-25 22:21] LABS: Alanine Aminotransferase 28 U/L (6-35); Albumin Level 4.7 g/dL (3.5-5.1); Alkaline Phosphatase 94 U/L (38-126); Anion Gap 13 mmol/L (8-16); Aspartate Amino Transferase 26 U/L (14-36); Bilirubin,Total 0.4 mg/dL (0.2-1.3); Blood Urea Nitrogen 7 mg/dL (7-17); Calcium 9.1 mg/dL (8.4-10.2); Carbon Dioxide 24 mmol/L (22-30); Chloride 103 mmol/L (98-107); Estimated CRCL calculation 112 ml/min; Estimated Glomerular Filt Rate > 60; Glucose 109 mg/dL (65-110); Potassium 3.5 mmol/L (3.4-5.0); Sodium 140 mmol/L (137-145)
[2022-07-25 22:26] LABS: Appearance Urine Cloudy (Clear); Bacteria Urine None Seen /hpf; Bilirubin Urine Negative (Negative); Blood Urine Trace (Negative); Color Urine Yellow (Yellow); Glucose Urine UA Negative (Negative); Ketones Urine Negative (Negative); Leukocyte Esterase Ur Trace LEU/UL (Negative); Nitrate Urine Negative (Negative); Non Pathogenic Casts 0-2; Protein Urine Trace mg/dL (Negative); RBC Urine 0-2 /hpf (0-2); Specific Grav Ur 1.026 (1.001-1.035); Squamous Epithelial Cell Urine Moderate /hpf (Few); WBC Urine 21-50 /hpf
[2022-07-25 22:42] LABS: Band Neutrophils Percent 3 % (0-6); Eosinophils Percent Manual 2 % (0-4); Lymphocytes Absolute Manual 5.85 K/mm3 (1.1-4.5); Metamyelocytes Percent 1 %; Monocytes Absolute Manual 0.75 K/mm3 (0.1-0.90); Monocytes Percent Manual 5 % (3-9); Neutrophils Absolute Manual 7.95 K/mm3 (1.7-7.2); Neutrophils Percent Manual 50 % (46-73); Platelet Estimate Adequate (Adequate); Total Cells Counted 100
[2022-07-25 22:43] LABS: Anisocytosis 2+ (NORMAL); Hypochromasia 1+ (NORMAL); Schistocytes None Seen (NORMAL)
[2022-07-25 22:44] LABS: Microcytosis 1+ (NORMAL)
[2022-07-25 22:50] LABS: Add Urine Microscopic? YES
[2022-07-26 00:11] VITALS: BP 141/103; PULSE 98; RESP 15; TEMP 36.9; O2SAT 99
--- NOTE | 2022-07-26 00:52 | ED.BACK ---
HPI - Back Pain/Injury General Chief Complaint: Back Pain/Injury Stated Complaint: flank pain Time Seen by Provider: 07/26/22 00:05 Source: patient Mode of arrival: ambulatory Limitations: no limitations History of Present Illness HPI Narrative: Patient is a 26-year-old female with a history of recurrent urinary tract infections, pyelonephritis, anxiety, acid reflux, nephrolithiasis, presenting to the emergency department for evaluation of left flank pain. Patient reports aching left flank pain with radiation into left lower abdomen. No associated fever, chills, some mild associated nausea. Patient reports symptoms did improve earlier with children's Tylenol which she typically takes if she feels a kidney infection beginning. Patient reports mild urgency without dysuria or hematuria. She denies any right lower quadrant abdominal pain, distention, constipation or diarrhea. She denies any significant abdominal distention. No chest pain, cough, shortness of breath. Per chart review, patient seen at this facility in April, diagnosed with urinary tract infection. Related Data Home Medications Medication Instructions Recorded Confirmed albuterol sulfate 90 mcg/actuation inhalation 07/22/20 02/08/22 aerosol inhaler (ProAir HFA) Allergies Allergy/AdvReac Type Severity Reaction Status Date / Time escitalopram [From Lexapro] Allergy Severe Hives Verified 06/15/22 10:20 amoxicillin Allergy Mild Rash Verified 06/15/22 10:20 Iodinated Contrast Media Allergy Mild Rash Verified 06/15/22 10:20 aspirin Allergy Swelling Verified 06/15/22 10:20 of Lip/Tongue/Throat clindamycin Allergy Itching Verified 06/15/22 10:20 ibuprofen Allergy Swelling Verified 06/15/22 10:20 of Lip/Tongue/Throat latex Allergy Itching Verified 07/26/22 00:14 seafood AdvReac Mild Hives Uncoded 06/15/22 10:20 Review of Systems Review of Systems: CONSTITUTIONAL: Denies fever, chills, or sweats. CARDIOVASCULAR: Denies chest pain, palpitations, or edema. RESPIRATORY: Denies cough or dyspnea. GASTROINTESTINAL: Reports LLQ abdominal pain, left flank pain GENITOURINARY: Denies dysuria or hematuria. Reports urgency. SKIN: Denies rash or itching. MUSCULOSKELETAL: Denies back pain, joint pain, or myalgia. NEUROLOGIC: Denies headache, numbness, or weakness. P PMFSH Past Medical History Medical History Anemia Anxiety Asthma Breast lump or mass Depression Encounter for screening examination for sexually transmitted disease GERD (gastroesophageal reflux disease) Headache History of kidney stones Initiation of Depo Provera Migraines Nipple discharge in antepartum period Overweight (BMI 25.0-29.9) Pneumonia Surveillance for Depo-Provera contraception Urinary tract infection Surgical History Surgical History No history of previous surgery Family History Family History Mother Cancer Grandparent Diabetes mellitus paternal grandmother Hypertension paternal grandmother Other Seizure daughter Social History Social History Smoking status: Former smoker Second hand tobacco smoke exposure: No Alcohol intake: current Alcohol use details: once a month-wine coolers Substance use: never Substance use type: does not use Living arrangements: other Additional living arrangements comments: lives with grandmother Occupation/Education: occupation Additional occupation/education comments: [employer] Gender identity (if verbalized by the patient): Female Sexual Orientation (if Verbalized by the Patient): Bisexual Spiritual care concerns: No Agree to blood products: Yes Exam Narrative: GENERAL: Awake, alert, conversant HEAD: Normocephalic, atraumatic. EYES: PERR
[2022-07-26] MEDS: SODIUM CHLORIDE 0.9% IV 1,000 ML 999 ML IV CONT (01:24)
--- NOTE | 2022-07-26 01:42 | PC.NURSE ---
Patient is refusing ceftriaxone 1gm IVPB. Patient states I would rather not take that medication. New medications usually give me allergies . Notified Dr. Madrigal.
== END 2022-07-26 01:50 | disposition home or self-care (01) ==
PROVIDERS: Emergency Provider Emergency Medicine; PCP Nurse Practitioner Family
DX: N12 Tubulo-interstitial nephritis, not specified as acute or chronic (principal); J45.909 Unspecified asthma, uncomplicated; K21.9 Gastro-esophageal reflux disease without esophagitis; F32.A Depression, unspecified; F41.9 Anxiety disorder, unspecified; Z87.442 Personal history of urinary calculi; Z86.2 Personal history of diseases of the blood and blood-forming organs and certain disorders involving the immune mechanism; Z87.01 Personal history of pneumonia (recurrent); Z87.891 Personal history of nicotine dependence
CPT/HCPCS: 36415; 74176; 80053; 81001; 81025; 82948; 85025; 87086; 87088; 87147; 99284; J7030

== ENCOUNTER 2022-07-29 22:57 | Emergency (ER) | payer OTHER, SELFPAY ==
--- NOTE | ~2022-07-29 | CT_ITS ---
EXAMINATION: CT brain wo con DATE: 07/30/2022 00:24 INDICATION: Left-sided numbness. Dizziness and headache. TECHNIQUE: Computed tomography (CT) of the head was performed without intravenous contrast. The mA wa s adjusted according to patient size. Iterative reconstruction technique was employed. The dose-lengt h product was 605.33 mGy-cm. COMPARISON: None FINDINGS: There is no intracranial hemorrhage, acute infarction, or abnormal intracranial mass lesion . The ventricles are normal in size. The paranasal sinuses are clear. The orbits are normal. The mast oid air cells are normal. IMPRESSION: 1. Normal brain. Reviewed, dictated and finalized at location A. IMPRESSION: 1. Normal brain.
--- NOTE | ~2022-07-29 | XR_ITS ---
EXAMINATION: XR chest 2V DATE: 07/30/2022 00:29 INDICATION: Right chest discomfort. TECHNIQUE: Frontal and lateral views of the chest were obtained. COMPARISON: Chest 2 views 08/16/2021, CT abdomen and pelvis 07/26/2022 FINDINGS: The chest demonstrates clear lungs without pneumonia, pleural effusion, or pneumothorax. Th e heart size is normal. IMPRESSION: 1. No acute cardiopulmonary disease. Reviewed, dictated and finalized at location A.
[2022-07-29 23:00] VITALS: BP 136/89; PULSE 99; RESP 18; TEMP 37.2; O2SAT 100
--- NOTE | 2022-07-29 23:44 | ECG_ITS ---
Measurements Intervals [place] Rate: 89 P: 37 GA: 177 QRS: 53 QRSD: 85 T: 16 QT: 326 QTc: 398 Interpretive Statements SINUS RHYTHM BORDERLINE T WAVE ABNORMALITY- ANTERIOR LEADS BORDERLINE ECG COMPARED TO ECG 08/16/2021 18:12:17 SINUS RHYTHM NOW PRESENT Electronically Signed On 07-30-2022 7:04:15 CDT by Leroy Martin D.O.
--- NOTE | 2022-07-29 23:54 | ED.GENADULT ---
HPI - General Adult General Chief complaint: Unspecified Stated complaint: dizziness Time Seen by Provider: 07/29/22 23:11 History of Present Illness HPI narrative: 26-year-old female here for evaluation of left leg numbness x1 day. Patient states that she was lying in bed in her usual state of health when suddenly she had some left-sided numbness and tingling. States that initially it was in her left arm and her left leg but her left arm numbness has since improved. She states that now her left leg is entirely numb and she cannot feel it at all. She denies any weakness, back pain, saddle anesthesia, incontinence or retention of bowel or bladder. She is having some dizziness and lightheadedness. She does have a history of anxiety and panic attacks where she has had numbness present as a symptom but does not think that she is having a panic attack today. Additionally she is having some right-sided chest discomfort. No shortness of breath Related Data Home Medications Medication Instructions Recorded Confirmed albuterol sulfate 90 mcg/actuation inhalation 07/22/20 02/08/22 aerosol inhaler (ProAir HFA) Allergies Allergy/AdvReac Type Severity Reaction Status Date / Time escitalopram [From Lexapro] Allergy Severe Hives Verified 07/29/22 23:06 amoxicillin Allergy Mild Rash Verified 07/29/22 23:06 Iodinated Contrast Media Allergy Mild Rash Verified 07/29/22 23:06 aspirin Allergy Swelling Verified 07/29/22 23:06 of Lip/Tongue/Throat clindamycin Allergy Itching Verified 07/29/22 23:06 ibuprofen Allergy Swelling Verified 07/29/22 23:06 of Lip/Tongue/Throat latex Allergy Itching Verified 07/29/22 23:06 seafood AdvReac Mild Hives Uncoded 07/29/22 23:06 Review of Systems Review of Systems: Gen.: Denies fevers or chills Eyes: Denies eye pain or visual change ENT: Denies congestion Respiratory: Denies shortness of breath or cough CV: Reports chest pain. GI: Denies abdominal pain nausea, emesis or diarrhea denies burning, urgency, frequency or hematuria Musculoskeletal: Denies back pain or muscle pain Neuro: Reports leg and arm numbness. Reports headache and dizziness. Skin: Denies rash Except as documented, all other systems reviewed and negative PMFSH Past Medical History Medical History Anemia Anxiety Asthma Breast lump or mass Depression Encounter for screening examination for sexually transmitted disease GERD (gastroesophageal reflux disease) Headache History of kidney stones Initiation of Depo Provera Migraines Nipple discharge in antepartum period Overweight (BMI 25.0-29.9) Pneumonia Surveillance for Depo-Provera contraception Urinary tract infection Surgical History Surgical History No history of previous surgery Family History Family History Mother Cancer Grandparent Diabetes mellitus paternal grandmother Hypertension paternal grandmother Other Seizure daughter Social History Social History Smoking status: Former smoker Second hand tobacco smoke exposure: No Alcohol intake: current Alcohol use details: once a month-wine coolers Substance use: never Substance use type: does not use Living arrangements: other Additional living arrangements comments: lives with grandmother Occupation/Education: occupation Additional occupation/education comments: [employer] Gender identity (if verbalized by the patient): Female Sexual Orientation (if Verbalized by the Patient): Bisexual Spiritual care concerns: No Agree to blood products: Yes Exam Narrative: APPEARANCE: Well appearing, no pain in distress, well-nourished. Head: Normocephalic and atraumatic. EYES: PERRLA/EOMI, conjunctivae c
[2022-07-30 00:08] LABS: Basophils Absolute Auto 0.1 K/mm3 (0.0-0.1); Basophils Percent Auto 0.6 % (0.2-1.2); Eosinophils Absolute Auto 0.3 K/mm3 (0-0.3); Eosinophils Percent Auto 2.7 % (0-4.4); Hematocrit 43.2 % (37.0-47.0); Hemoglobin 13.8 g/dL (12.0-15.0); Immature Granulocyte Absolute 0.06 K/mm3 (0.00-0.031); Immature Granulocyte Percent A 0.5 % (0-0.5); Lymphocytes Absolute Auto 3.79 K/mm3 (0.9-3.2); Lymphocytes Percent Auto 31.4 % (18.3-44.2); Mean Corpuscular HGB Conc 31.9 g/dl (32-36); Mean Corpuscular Volume 81.5 fl (80-100); Mean Platelet Volume 9.3 fl (7.4-10.4); Monocytes Absolute Auto 0.7 K/mm3 (0.1-0.6); Monocytes Percent Auto 5.5 % (2.6-8.5); Neutrophils Absolute Auto 7.2 K/mm3 (1.3-6.7); Neutrophils Percent Auto 59.3 % (45.5-73.1); Platelet Count Result 326 k/mm3 (150-375); Red Cell Distribution Width 13.6 % (11.5-14.5); White Blood Count 12.1 K/mm3 (4.5-10.0)
[2022-07-30 00:22] LABS: Alanine Aminotransferase 29 U/L (6-35); Albumin Level 4.6 g/dL (3.5-5.1); Alkaline Phosphatase 103 U/L (38-126); Anion Gap 10 mmol/L (8-16); Aspartate Amino Transferase 28 U/L (14-36); Bilirubin,Total 0.3 mg/dL (0.2-1.3); Blood Urea Nitrogen 12 mg/dL (7-17); Calcium 9.2 mg/dL (8.4-10.2); Carbon Dioxide 25 mmol/L (22-30); Chloride 105 mmol/L (98-107); Estimated CRCL calculation 112 ml/min; Estimated Glomerular Filt Rate > 60; Glucose 110 mg/dL (65-110); Potassium 3.8 mmol/L (3.4-5.0); Sodium 140 mmol/L (137-145)
[2022-07-30 00:34] LABS: Troponin I < 0.012 ng/mL (0.000-0.034)
[2022-07-30 01:50] VITALS: BP 118/86; PULSE 92; RESP 16; O2SAT 99
== END 2022-07-30 01:50 | disposition home or self-care (01) ==
PROVIDERS: Emergency Provider Physician Assistant; PCP Nurse Practitioner Family
DX: R20.2 Paresthesia of skin (principal); D64.9 Anemia, unspecified; F41.9 Anxiety disorder, unspecified; J45.909 Unspecified asthma, uncomplicated; F32.A Depression, unspecified; K21.9 Gastro-esophageal reflux disease without esophagitis; Z87.440 Personal history of urinary (tract) infections; Z87.442 Personal history of urinary calculi
CPT/HCPCS: 36415; 70450; 71046; 80053; 84484; 85025; 93005; 99284; A9270

== ENCOUNTER 2022-08-10 11:13 | Outpatient (CLI) | payer OTHER, SELFPAY ==
[2022-08-10 11:24] LABS: Basophils Absolute Auto 0.1 K/mm3 (0.0-0.1); Basophils Percent Auto 0.5 % (0.2-1.2); Eosinophils Absolute Auto 0.2 K/mm3 (0-0.3); Eosinophils Percent Auto 1.7 % (0-4.4); Hematocrit 44.8 % (37.0-47.0); Hemoglobin 14.2 g/dL (12.0-15.0); Immature Granulocyte Absolute 0.08 K/mm3 (0.00-0.031); Immature Granulocyte Percent A 0.8 % (0-0.5); Lymphocytes Absolute Auto 3.26 K/mm3 (0.9-3.2); Lymphocytes Percent Auto 31.3 % (18.3-44.2); Mean Corpuscular HGB Conc 31.7 g/dl (32-36); Mean Corpuscular Volume 82.1 fl (80-100); Mean Platelet Volume 8.7 fl (7.4-10.4); Monocytes Absolute Auto 0.5 K/mm3 (0.1-0.6); Monocytes Percent Auto 4.5 % (2.6-8.5); Neutrophils Absolute Auto 6.4 K/mm3 (1.3-6.7); Neutrophils Percent Auto 61.2 % (45.5-73.1); Platelet Count Result 326 k/mm3 (150-375); Red Blood Count 5.46 M/mm3 (4.2-5.4); Red Cell Distribution Width 13.2 % (11.5-14.5); White Blood Count 10.4 K/mm3 (4.5-10.0)
[2022-08-10 11:29] LABS: Blood Urea Nitrogen 10 mg/dL (8-26); Carbon Dioxide 26 mmol/L (22-30); Chloride 103 mmol/L (98-109); Estimated Glomerular Filt Rate > 60; Glucose 116 mg/dL (70-105); Ionized Calcium (POC) 1.22 mmol/L (1.11-1.31); Potassium 3.6 mmol/L (3.5-4.9); Sodium 139 mmol/L (138-146)
[2022-08-10 15:01] LABS: Alanine Aminotransferase 29 U/L (6-35); Albumin Level 4.8 g/dL (3.5-5.1); Alkaline Phosphatase 89 U/L (38-126); Anion Gap 7 mmol/L (8-16); Aspartate Amino Transferase 24 U/L (14-36); Bilirubin,Total 0.6 mg/dL (0.2-1.3); Blood Urea Nitrogen 11 mg/dL (7-17); Calcium 9.3 mg/dL (8.4-10.2); Carbon Dioxide 29 mmol/L (22-30); Chloride 102 mmol/L (98-107); Estimated Glomerular Filt Rate > 60; Glucose 114 mg/dL (65-110); Potassium 3.7 mmol/L (3.4-5.0); Sodium 138 mmol/L (137-145)
== END 2022-08-10 11:14 | disposition home or self-care (01) ==
PROVIDERS: PCP Nurse Practitioner Family; Visit Provider Internal Medicine Hematology & Oncology
DX: D72.829 Elevated white blood cell count, unspecified (principal)
CPT/HCPCS: 36415; 80047; 80053; 85025

== ENCOUNTER 2022-08-24 14:00 | Emergency (ER) | payer OTHER, SELFPAY ==
--- NOTE | ~2022-08-24 | XR_ITS ---
EXAMINATION: XR chest 2V Exam Date/Time: 08/24/2022 14:55 CDT HISTORY: chest pain, dizziness x 1 day. hx asthma Comparison: 07/22/2022. RESULT: Lines, tubes, and devices: None. Lungs and pleura: Clear. Cardiomediastinal silhouette: Stable. Other: No acute osseous or upper abdominal finding. IMPRESSION: No acute cardiopulmonary process. Reviewed, dictated and finalized at location K.
[2022-08-24 14:08] VITALS: BP 142/100; PULSE 120; RESP 18; TEMP 36.4; O2SAT 100
--- NOTE | 2022-08-24 14:13 | ECG_ITS ---
Measurements Intervals [place] Rate: 104 P: [place]: 0 QRS: 50 QRSD: 83 T: -2 QT: 300 QTc: 396 Interpretive Statements SINUS TACHYCARDIA COMPARED TO ECG 07/30/2022 00:06:35 SINUS TACHYCARDIA NOW PRESENT Electronically Signed On 08-24-2022 16:06:48 CDT by Stephany Engel M.D.
[2022-08-24 14:38] LABS: Basophils Absolute Auto 0.1 K/mm3 (0.0-0.1); Basophils Percent Auto 0.5 % (0.2-1.2); Eosinophils Absolute Auto 0.2 K/mm3 (0-0.3); Eosinophils Percent Auto 1.1 % (0-4.4); Hematocrit 42.7 % (37.0-47.0); Hemoglobin 13.4 g/dL (12.0-15.0); Immature Granulocyte Absolute 0.08 K/mm3 (0.00-0.031); Immature Granulocyte Percent A 0.6 % (0-0.5); Lymphocytes Absolute Auto 3.34 K/mm3 (0.9-3.2); Lymphocytes Percent Auto 23.9 % (18.3-44.2); Mean Corpuscular HGB Conc 31.4 g/dl (32-36); Mean Corpuscular Hemoglobin 25.6 pg (26-34); Mean Corpuscular Volume 81.6 fl (80-100); Mean Platelet Volume 9.2 fl (7.4-10.4); Monocytes Absolute Auto 0.8 K/mm3 (0.1-0.6); Monocytes Percent Auto 5.8 % (2.6-8.5); Neutrophils Absolute Auto 9.6 K/mm3 (1.3-6.7); Neutrophils Percent Auto 68.1 % (45.5-73.1); Platelet Count Result 313 k/mm3 (150-375); Red Blood Count 5.23 M/mm3 (4.2-5.4); Red Cell Distribution Width 13.1 % (11.5-14.5)
[2022-08-24 14:49] LABS: INR 1.1; Prothrombin Time 14.2 Seconds (11.1-14.7)
[2022-08-24 14:50] LABS: Alanine Aminotransferase 27 U/L (6-35); Albumin Level 4.7 g/dL (3.5-5.1); Alkaline Phosphatase 87 U/L (38-126); Anion Gap 12 mmol/L (8-16); Aspartate Amino Transferase 30 U/L (14-36); Bilirubin,Total 0.3 mg/dL (0.2-1.3); Blood Urea Nitrogen 9 mg/dL (7-17); Calcium 9.3 mg/dL (8.4-10.2); Carbon Dioxide 24 mmol/L (22-30); Chloride 107 mmol/L (98-107); Estimated CRCL calculation 94 ml/min; Estimated Glomerular Filt Rate > 60; Glucose 110 mg/dL (65-110); Lipase 98 U/L (23-300); Partial Thromboplastin Time 32.2 SECONDS (22.3-36.8); Potassium 3.3 mmol/L (3.4-5.0); Sodium 143 mmol/L (137-145)
[2022-08-24 15:02] LABS: Troponin I < 0.012 ng/mL (0.000-0.034)
[2022-08-24 17:19] VITALS: PULSE 108; RESP 18; O2SAT 100
[2022-08-24 17:46] LABS: D Dimer 0.36 ug/mL (<0.48)
[2022-08-24 17:55] LABS: Troponin I < 0.012 ng/mL (0.000-0.034)
--- NOTE | 2022-08-24 18:00 | PC.NURSE ---
patient is refusing IV or any iv medications or iv fluids
--- NOTE | 2022-08-24 18:21 | ED.GENADULT ---
HPI - General Adult General Chief complaint: Chest Pain Stated complaint: chest pain Time Seen by Provider: 08/24/22 16:15 History of Present Illness HPI narrative: Patient is a 26-year-old female who presents ER with multiple concerns. Main concern is right-sided chest pain. It is beneath her right lateral breast and also in her upper chest. Spontaneous in occurrence. Worse with movement. Began while at work. Also has some discomfort with deep breath. No recent runny nose or sore throat or productive cough. She reports she is also had some intermittent lightheadedness over the last few days when she goes from sitting to standing or with different positional changes. Denies history of vertigo. Furthermore patient is concerned that she could be and also that she has a bite to her right thigh that may be causing of some of her symptoms. She reports she is on control and should not be but she would like to double check. The bite to the right thigh is not red but it is bruised. She has no redness or streaking. It is also nontender. Related Data Home Medications Medication Instructions Recorded Confirmed albuterol sulfate 90 mcg/actuation inhalation 07/22/20 02/08/22 aerosol inhaler (ProAir HFA) Allergies Allergy/AdvReac Type Severity Reaction Status Date / Time escitalopram [From Lexapro] Allergy Severe Hives Verified 08/24/22 14:15 amoxicillin Allergy Mild Rash Verified 08/24/22 14:15 Iodinated Contrast Media Allergy Mild Rash Verified 08/24/22 14:15 aspirin Allergy Swelling Verified 08/24/22 14:15 of Lip/Tongue/Throat clindamycin Allergy Itching Verified 08/24/22 14:15 ibuprofen Allergy Swelling Verified 08/24/22 14:15 of Lip/Tongue/Throat latex Allergy Itching Verified 08/24/22 14:15 seafood AdvReac Mild Hives Uncoded 08/24/22 14:15 Review of Systems Review of Systems: All systems reviewed & are unremarkable except as noted in HPI and below Constitutional: Constitutional: Denies chills, Denies fatigue and Denies fever(s) ENT: Reports dizziness, Denies nasal congestion and Denies sore throat Cardiovascular: Cardiovascular: Reports chest pain, Reports rapid heart rate and Denies radiating jaw, neck or arm pain Respiratory: Respiratory: Denies cough and Denies dyspnea Gastrointestinal: Gastrointestinal: Denies abdominal pain, Denies nausea and Denies vomiting PMFSH Past Medical History Medical History Anemia Anxiety Asthma Breast lump or mass Depression Encounter for screening examination for sexually transmitted disease GERD (gastroesophageal reflux disease) Headache History of kidney stones Initiation of Depo Provera Migraines Nipple discharge in antepartum period Overweight (BMI 25.0-29.9) Pneumonia Surveillance for Depo-Provera contraception Urinary tract infection Surgical History Surgical History No history of previous surgery Family History Family History Mother Cancer Grandparent Diabetes mellitus paternal grandmother Hypertension paternal grandmother Other Seizure daughter Social History Social History Smoking status: Former smoker Second hand tobacco smoke exposure: No Alcohol intake: current Alcohol use details: once a month-wine coolers Substance use: never Substance use type: does not use Living arrangements: other Additional living arrangements comments: lives with grandmother Occupation/Education: occupation Additional occupation/education comments: [employer] Gender identity (if verbalized by the patient): Female Sexual Orientation (if Verbalized by the Patient): Bisexual Spiritual care concerns: No Agree to blood products: Yes Exam N
== END 2022-08-24 19:21 | disposition home or self-care (01) ==
PROVIDERS: Emergency Provider Emergency Medicine; PCP Nurse Practitioner Family
DX: R09.1 Pleurisy (principal); S71.151A Open bite, right thigh, initial encounter; J45.909 Unspecified asthma, uncomplicated; K21.9 Gastro-esophageal reflux disease without esophagitis; Z86.2 Personal history of diseases of the blood and blood-forming organs and certain disorders involving the immune mechanism; Z87.442 Personal history of urinary calculi; Z87.440 Personal history of urinary (tract) infections; Z87.01 Personal history of pneumonia (recurrent); Z87.891 Personal history of nicotine dependence; R00.0 Tachycardia, unspecified; W57.XXXA Bitten or stung by nonvenomous insect and other nonvenomous arthropods, initial encounter
CPT/HCPCS: 36415; 71046; 80053; 81025; 83690; 84484; 85025; 85380; 85610; 85730; 93005; 99284

== ENCOUNTER 2022-10-15 18:20 | Emergency (ER) | payer OTHER, SELFPAY ==
[2022-10-15 18:21] VITALS: BP 134/89; PULSE 124; RESP 20; TEMP 36.3; O2SAT 99
[2022-10-15 18:58] LABS: Basophils Absolute Auto 0.1 K/mm3 (0.0-0.1); Basophils Percent Auto 0.6 % (0.2-1.2); Eosinophils Absolute Auto 0.2 K/mm3 (0-0.3); Eosinophils Percent Auto 1.1 % (0-4.4); Hematocrit 42.9 % (37.0-47.0); Hemoglobin 13.6 g/dL (12.0-15.0); Immature Granulocyte Absolute 0.09 K/mm3 (0.00-0.031); Immature Granulocyte Percent A 0.6 % (0-0.5); Lymphocytes Percent Auto 18.6 % (18.3-44.2); Mean Corpuscular HGB Conc 31.7 g/dl (32-36); Mean Corpuscular Hemoglobin 25.7 pg (26-34); Mean Corpuscular Volume 80.9 fl (80-100); Mean Platelet Volume 8.9 fl (7.4-10.4); Monocytes Absolute Auto 0.7 K/mm3 (0.1-0.6); Monocytes Percent Auto 4.8 % (2.6-8.5); Neutrophils Absolute Auto 10.4 K/mm3 (1.3-6.7); Neutrophils Percent Auto 74.3 % (45.5-73.1); Platelet Count Result 314 k/mm3 (150-375); Red Cell Distribution Width 13.4 % (11.5-14.5)
--- NOTE | 2022-10-15 19:04 | ECG_ITS ---
Measurements Intervals [place] Rate: 106 P: 28 [place]: 159 QRS: 52 QRSD: 85 T: 2 QT: 320 QTc: 425 Interpretive Statements SINUS TACHYCARDIA BASELINE ARTIFACT NONSPECIFIC T-WAVE ABNORMALITY BORDERLINE ECG COMPARED TO ECG 08/24/2022 14:22:11 T-WAVE ABNORMALITY NOW PRESENT Electronically Signed On 10-16-2022 15:34:52 CDT by Arsalan Do M.D.
[2022-10-15 19:06] LABS: Prothrombin Time 13.4 Seconds (11.1-14.7)
[2022-10-15 19:07] LABS: Partial Thromboplastin Time 32.7 SECONDS (22.3-36.8)
--- NOTE | 2022-10-15 19:07 | ED.GENADULT ---
HPI - General Adult General Chief complaint: GI Bleed <Yani aRmírez PA-C - Last Filed: 10/15/22 20:44> Stated complaint: abdominal/back pain/blood in stool <Yani Ramírez PA-C - Last Filed: 10/15/22 20:44> Time Seen by Provider: 10/15/22 18:51 <Yani Ramírez PA-C - Last Filed: 10/15/22 20:44> History of Present Illness HPI narrative: 27-year-old female with a history of GERD, anxiety, history of ureteric lithiasis, pyelonephritis, depression and reports for evaluation for suprapubic abdominal pain, diarrhea, vomiting, vaginal discharge, hematochezia, vaginal bleeding, and hematuria x2 days. Patient reports she has had multiple episodes of emesis and diarrhea daily. States 2 days ago at the onset of diarrhea, she had blood in her stool that was in the toilet bowl. States since then she has had blood only on the toilet paper when she wipes. She does report blood she is seen in her urine and a small amount of blood from her vagina which she attributes to the Monistat she has been using for a self diagnosed yeast infection. She has been using monostat over the past 6 days with improvement in vaginal discharge and vaginitis. Patient does state that her boyfriend cheated on her recently and she went to her PCP 2 days ago to get tested for STDs. She has not received results back except for syphilis which was negative. She is awaiting the remainder of results. She did not get treated at that time. She denies chest pain or shortness of breath, fever, dysuria, rectal pain, vaginal pain or lesions. Patient states this is how she usually presents when she gets pyelonephritis. Reports he normally gets treated with Keflex for her UTIs. Patient does report feeling anxious at the time of evaluation. LMP 7 years ago, she is currently on Depo. <Yani Ramírez PA-C - Last Filed: 10/15/22 20:44> Related Data Home medications: Home Medications Medication Instructions Recorded Confirmed albuterol sulfate 90 mcg/actuation inhalation 07/22/20 02/08/22 aerosol inhaler (ProAir HFA) fluoxetine 20 mg capsule (Prozac) 20 mg PO DAILY 09/12/22 hydroxyzine HCl 25 mg tablet 25 mg PO TID PRN 09/12/22 <Yani Ramírez PA-C - Last Filed: 10/15/22 20:44> Allergies/adverse reactions: Allergies Allergy/AdvReac Type Severity Reaction Status Date / Time escitalopram [From Lexapro] Allergy Severe Hives Verified 10/15/22 18:31 amoxicillin Allergy Mild Rash Verified 10/15/22 18:31 Iodinated Contrast Media Allergy Mild Rash Verified 10/15/22 18:31 aspirin Allergy Swelling Verified 10/15/22 18:31 of Lip/Tongue/Throat clindamycin Allergy Itching Verified 10/15/22 18:31 ibuprofen Allergy Swelling Verified 10/15/22 18:31 of Lip/Tongue/Throat latex Allergy Itching Verified 10/15/22 18:31 seafood AdvReac Mild Hives Uncoded 09/12/22 10:19 <Yani Ramírez PA-C - Last Filed: 10/15/22 20:44> Review of Systems Review of Systems: CONSTITUTIONAL: Denies fever, chills EYES: Denies visual changes, redness, or discharge. ENT: Denies rhinorrhea, congestion, sore throat, or otalgia. CARDIOVASCULAR: Denies chest pain, palpitations, or edema. RESPIRATORY: Denies cough or dyspnea. GASTROINTESTINAL: See HPI GENITOURINARY: See HPI SKIN: Denies rash or itching. MUSCULOSKELETAL: Denies back pain, joint pain, or myalgia. NEUROLOGIC: Denies headache, numbness, dizziness, or weakness. PSYCHIATRIC: Denies anxiety or depression. <Yani Ramírez PA-C - Last Filed: 10/15/22 20:44> COUNTS INCLUDE 234 BEDS AT THE [facility] Past Medical History Medical History: Medical History Anemia Anxiety Asthma Breast lump or mass Depression Encounter for screening examination for sexually transmitted disease GERD (gastroesophageal reflux disease) Headache History of kidney stones Initiation of Depo Provera Migraines Nipple discharge in antepartum period Overweight (BMI 2
[2022-10-15 19:09] LABS: Alanine Aminotransferase 29 U/L (6-35); Albumin Level 4.7 g/dL (3.5-5.1); Alkaline Phosphatase 106 U/L (38-126); Anion Gap 9 mmol/L (8-16); Aspartate Amino Transferase 27 U/L (14-36); Bilirubin,Total 0.4 mg/dL (0.2-1.3); Blood Urea Nitrogen 9 mg/dL (7-17); Calcium 9.5 mg/dL (8.4-10.2); Carbon Dioxide 26 mmol/L (22-30); Chloride 106 mmol/L (98-107); Estimated CRCL calculation 85 ml/min; Estimated Glomerular Filt Rate > 60; Glucose 115 mg/dL (65-110); Potassium 3.7 mmol/L (3.4-5.0); Sodium 141 mmol/L (137-145)
[2022-10-15 19:31] VITALS: BP 115/75; PULSE 109; RESP 19; O2SAT 97
[2022-10-15] MEDS: ONDANSETRON INJ 4 MG/2 ML VIAL IV PUSH (19:42)
[2022-10-15] MEDS: SODIUM CHLORIDE 0.9% IV 1,000 ML 999 ML IV CONT (19:43)
[2022-10-15 19:44] LABS: Lipase 59 U/L (23-300)
[2022-10-15 19:52] LABS: Appearance Urine Turbid (Clear); Bacteria Urine 1+ /hpf; Bilirubin Urine Negative (Negative); Blood Urine Trace (Negative); Color Urine Yellow (Yellow); Glucose Urine UA Negative (Negative); Ketones Urine Negative (Negative); Leukocyte Esterase Ur 3+ LEU/UL (Negative); Nitrate Urine Negative (Negative); Non Pathogenic Casts 0-2; Protein Urine Negative (Negative); RBC Urine 0-2 /hpf (0-2); Specific Grav Ur 1.007 (1.001-1.035); Squamous Epithelial Cell Urine Many /hpf (Few); Urobilinogen Urine 0.2 mg/dL (<2.0); WBC Urine >100 /hpf
[2022-10-15 19:55] LABS: Add Urine Microscopic? YES
[2022-10-15] MEDS: CEPHALEXIN 500 MG CAPSULE PO (20:27)
[2022-10-15 20:29] VITALS: BP 117/78; PULSE 109; RESP 19; O2SAT 100
== END 2022-10-15 20:57 | disposition home or self-care (01) ==
PROVIDERS: Preventive Medicine Aerospace Medicine; Emergency Provider Physician Assistant; PCP Nurse Practitioner Family
DX: N39.0 Urinary tract infection, site not specified (principal); K62.5 Hemorrhage of anus and rectum; J45.909 Unspecified asthma, uncomplicated; K21.9 Gastro-esophageal reflux disease without esophagitis; E66.3 Overweight; Z68.29 Body mass index [BMI] 29.0-29.9, adult; F41.9 Anxiety disorder, unspecified; F32.A Depression, unspecified; Z87.442 Personal history of urinary calculi; Z87.01 Personal history of pneumonia (recurrent); Z87.440 Personal history of urinary (tract) infections; Z86.2 Personal history of diseases of the blood and blood-forming organs and certain disorders involving the immune mechanism; R00.0 Tachycardia, unspecified; R94.31 Abnormal electrocardiogram [ECG] [EKG]
CPT/HCPCS: 36415; 80053; 81001; 81025; 83690; 85025; 85610; 85730; 86850; 86900; 86901; 87077; 87086; 87088; 93005; 96361; 96374; 99284; A9270; J2405; J7030

== ENCOUNTER 2023-01-26 08:21 | Emergency (ER) | payer OTHER, SELFPAY ==
--- NOTE | ~2023-01-26 | XR_ITS ---
EXAMINATION: XR chest 2V DATE: 01/26/2023 09:18 INDICATION: Cough and shortness of breath TECHNIQUE: PA and lateral views of the chest are obtained. COMPARISON: 08/24/2022 FINDINGS: The lungs are free of acute opacities. No pleural effusion or pneumothorax. The cardiomedia stinal silhouette is normal. The visualized bones and soft tissues are unremarkable. IMPRESSION: 1. No acute cardiopulmonary abnormality. Reviewed, dictated and finalized at location F. S WORKER
[2023-01-26 08:30] VITALS: BP 143/97; PULSE 112; RESP 18; TEMP 36.6; O2SAT 99
--- NOTE | 2023-01-26 09:20 | ED.URI ---
HPI - URI/Sore Throat General Chief Complaint: Upper Respiratory Infection Stated Complaint: cough Time Seen by Provider: 01/26/23 08:57 Source: patient Mode of arrival: ambulatory Limitations: no limitations History of Present Illness HPI Narrative: Patient is a 27 y/o female who presents to the ED with c/o cough. Patient reports having persistent and worsening cough since Sunday. She endorses occasional production of sputum, as well as rhinorrhea/congestion, pleuritic pain with coughing. Denies CP at rest. Denies SOB. Denies fevers. States she her boyfriend has since developed similar sx's. She has been taking liquid Tylenol for her sx's, but has not tried anything further. She states she cannot swallow pills. Related Data Home Medications Medication Instructions Recorded Confirmed albuterol sulfate 90 mcg/actuation inhalation 07/22/20 12/05/22 aerosol inhaler (ProAir HFA) fluoxetine 20 mg capsule (Prozac) 20 mg PO DAILY 09/12/22 12/05/22 hydroxyzine HCl 25 mg tablet 25 mg PO TID PRN 09/12/22 12/05/22 Allergies Allergy/AdvReac Type Severity Reaction Status Date / Time escitalopram [From Lexapro] Allergy Severe Hives Verified 01/26/23 08:34 amoxicillin Allergy Mild Rash Verified 01/26/23 08:34 Iodinated Contrast Media Allergy Mild Rash Verified 01/26/23 08:34 aspirin Allergy Swelling Verified 01/26/23 08:34 of Lip/Tongue/Throat clindamycin Allergy Itching Verified 01/26/23 08:34 ibuprofen Allergy Swelling Verified 01/26/23 08:34 of Lip/Tongue/Throat latex Allergy Itching Verified 01/26/23 08:34 seafood AdvReac Mild Hives Uncoded 01/26/23 08:34 Review of Systems Review of Systems: CONSTITUTIONAL: Denies fever, chills, or sweats. ENT: See HPI. CARDIOVASCULAR: Denies chest pain. RESPIRATORY: See HPI. GASTROINTESTINAL: Denies abdominal pain, nausea, vomiting. All systems reviewed & are unremarkable except as noted in HPI and below PMFSH Past Medical History Medical History Anemia Anxiety Asthma Breast lump or mass Depression Encounter for screening examination for sexually transmitted disease GERD (gastroesophageal reflux disease) Headache History of kidney stones Initiation of Depo Provera Migraines Nipple discharge in antepartum period Overweight (BMI 25.0-29.9) Pneumonia Surveillance for Depo-Provera contraception Urinary tract infection Surgical History Surgical History No history of previous surgery Family History Family History Mother Cancer Grandparent Diabetes mellitus paternal grandmother Hypertension paternal grandmother Other Seizure daughter Social History Social History Smoking status: Former smoker Second hand tobacco smoke exposure: No Alcohol intake: current Alcohol use details: once a month-wine coolers Substance use: never Substance use type: does not use Living arrangements: other Additional living arrangements comments: lives with grandmother Occupation/Education: occupation Additional occupation/education comments: [employer] Gender identity (if verbalized by the patient): Female Sexual Orientation (if Verbalized by the Patient): Bisexual Spiritual care concerns: No Agree to blood products: Yes Exam Narrative: GENERAL: Well appearing, well-nourished, non-toxic, in no acute distress. HEAD: Normocephalic, atraumatic. NECK: Supple. No adenopathy, no masses. RESPIRATORY: Airway patent, respirations nonlabored. Clear to auscultation bilaterally, no rales, rhonchi, wheezing. No focal lung sounds. CARDIOVASCULAR: Regular rate and rhythm without murmurs, rubs, or gallops. Radial pulses 2+ and equal bilaterally. MUSCULOSKELETAL: Moves all extremities. No g
[2023-01-26 10:43] LABS: Influenza A QL RT-PCR Negative (Negative); Influenza B QL RT-PCR Negative (Negative); RSV RNA, RT-PCR Negative (Negative); SARS-CoV-2 RNA PCR Negative (Negative)
[2023-01-26 10:58] VITALS: BP 146/97; PULSE 100; RESP 16; O2SAT 100
== END 2023-01-26 10:59 | disposition home or self-care (01) ==
PROVIDERS: Emergency Medicine; Emergency Provider Physician Assistant; PCP Nurse Practitioner Family
DX: J06.9 Acute upper respiratory infection, unspecified (principal); Z20.822 Contact with and (suspected) exposure to COVID-19; J45.909 Unspecified asthma, uncomplicated; K21.9 Gastro-esophageal reflux disease without esophagitis; E66.3 Overweight; Z68.28 Body mass index [BMI] 28.0-28.9, adult; F41.9 Anxiety disorder, unspecified; F32.A Depression, unspecified; Z87.01 Personal history of pneumonia (recurrent); Z87.442 Personal history of urinary calculi; Z87.440 Personal history of urinary (tract) infections; Z86.2 Personal history of diseases of the blood and blood-forming organs and certain disorders involving the immune mechanism; Z87.891 Personal history of nicotine dependence
CPT/HCPCS: 71046; 87637; 99283

== ENCOUNTER 2023-01-28 12:38 | Emergency (ER) | payer OTHER, SELFPAY ==
[2023-01-28 12:40] VITALS: BP 152/100; PULSE 130; RESP 14; TEMP 36.8; O2SAT 99
[2023-01-28 13:29] LABS: Basophils Absolute Auto 0.1 K/mm3 (0.0-0.1); Basophils Percent Auto 0.5 % (0.2-1.2); Eosinophils Absolute Auto 0.2 K/mm3 (0-0.3); Eosinophils Percent Auto 1.5 % (0-4.4); Hematocrit 45.8 % (37.0-47.0); Hemoglobin 14.7 g/dL (12.0-15.0); Immature Granulocyte Absolute 0.09 K/mm3 (0.00-0.031); Immature Granulocyte Percent A 0.6 % (0-0.5); Lymphocytes Absolute Auto 3.34 K/mm3 (0.9-3.2); Lymphocytes Percent Auto 22.4 % (18.3-44.2); Mean Corpuscular HGB Conc 32.1 g/dl (32-36); Mean Corpuscular Hemoglobin 25.7 pg (26-34); Mean Corpuscular Volume 80.1 fl (80-100); Mean Platelet Volume 9.1 fl (7.4-10.4); Monocytes Absolute Auto 0.8 K/mm3 (0.1-0.6); Monocytes Percent Auto 5.3 % (2.6-8.5); Neutrophils Absolute Auto 10.4 K/mm3 (1.3-6.7); Neutrophils Percent Auto 69.7 % (45.5-73.1); Platelet Count Result 314 k/mm3 (150-375); Red Blood Count 5.72 M/mm3 (4.2-5.4); White Blood Count 14.9 K/mm3 (4.5-10.0)
[2023-01-28 13:39] LABS: Alanine Aminotransferase 26 U/L (6-35); Albumin Level 4.5 g/dL (3.5-5.1); Alkaline Phosphatase 87 U/L (38-126); Anion Gap 11 mmol/L (8-16); Aspartate Amino Transferase 24 U/L (14-36); Bilirubin,Total 0.4 mg/dL (0.2-1.3); Blood Urea Nitrogen 12 mg/dL (7-17); Calcium 9.5 mg/dL (8.4-10.2); Carbon Dioxide 21 mmol/L (22-30); Chloride 106 mmol/L (98-107); Estimated CRCL calculation 94 ml/min; Estimated Glomerular Filt Rate > 60; Glucose 148 mg/dL (65-110); Potassium 3.7 mmol/L (3.4-5.0); Sodium 138 mmol/L (137-145)
[2023-01-28 13:40] LABS: Ethanol < 10 mg/dL (<10)
[2023-01-28 13:45] LABS: Appearance Urine Cloudy (Clear); Bacteria Urine 3+ /hpf; Bilirubin Urine Negative (Negative); Blood Urine Negative (Negative); Color Urine Yellow (Yellow); Glucose Urine UA Negative (Negative); Ketones Urine Negative (Negative); Leukocyte Esterase Ur 1+ LEU/UL (Negative); Need Manual Microscopic Reviewed; Nitrate Urine Negative (Negative); Non Pathogenic Casts 0-2; Protein Urine Negative (Negative); RBC Urine 0-2 /hpf (0-2); Specific Grav Ur 1.016 (1.001-1.035); Squamous Epithelial Cell Urine Moderate /hpf (Few); Urobilinogen Urine 0.2 mg/dL (<2.0)
[2023-01-28 13:48] LABS: Add Urine Microscopic? YES
--- NOTE | 2023-01-28 13:58 | ED.GENADULT ---
HPI - General Adult General Chief complaint: Psychiatric Symptoms Stated complaint: suicidal ideation Time Seen by Provider: 01/28/23 13:00 Source: patient Mode of arrival: ambulatory Limitations: no limitations History of Present Illness HPI narrative: This is a 27-year-old female who presents to the ED for chief complaint of SI. Reports that yesterday her boyfriend broke up with her and now she is having a mental breakdown. Reports she has history of anxiety depression and takes Wellbutrin, Prozac and hydroxyzine. Reports PCP recently prescribed Zoloft but she is yet to start this medication due to insurance coverage. Patient reports that plan for suicide would be overdose on alcohol. Denies any past history of suicide attempt or psychiatric admission. Denies any firearms at home. Denies any medical complaints other than having a common cold recently. Denies HI, hallucinations, any further complaints. Related Data Home Medications Medication Instructions Recorded Confirmed albuterol sulfate 90 mcg/actuation inhalation 07/22/20 12/05/22 aerosol inhaler (ProAir HFA) fluoxetine 20 mg capsule (Prozac) 20 mg PO DAILY 09/12/22 12/05/22 hydroxyzine HCl 25 mg tablet 25 mg PO TID PRN 09/12/22 12/05/22 Allergies Allergy/AdvReac Type Severity Reaction Status Date / Time escitalopram [From Lexapro] Allergy Severe Hives Verified 01/28/23 12:39 amoxicillin Allergy Mild Rash Verified 01/28/23 12:39 Iodinated Contrast Media Allergy Mild Rash Verified 01/28/23 12:39 aspirin Allergy Swelling Verified 01/28/23 12:39 of Lip/Tongue/Throat clindamycin Allergy Itching Verified 01/28/23 12:39 ibuprofen Allergy Swelling Verified 01/28/23 12:39 of Lip/Tongue/Throat latex Allergy Itching Verified 01/28/23 12:39 seafood AdvReac Mild Hives Uncoded 01/28/23 12:39 Review of Systems Review of Systems: All systems as dictated in HPI [facility] Past Medical History Medical History Anemia Anxiety Asthma Breast lump or mass Depression Encounter for screening examination for sexually transmitted disease GERD (gastroesophageal reflux disease) Headache History of kidney stones Initiation of Depo Provera Migraines Nipple discharge in antepartum period Overweight (BMI 25.0-29.9) Pneumonia Surveillance for Depo-Provera contraception Urinary tract infection Surgical History Surgical History No history of previous surgery Family History Family History Mother Cancer Grandparent Diabetes mellitus paternal grandmother Hypertension paternal grandmother Other Seizure daughter Social History Social History Smoking status: Former smoker Second hand tobacco smoke exposure: No Alcohol intake: current Alcohol use details: once a month-wine coolers Substance use: never Substance use type: does not use Living arrangements: other Additional living arrangements comments: lives with grandmother Occupation/Education: occupation Additional occupation/education comments: [employer] Gender identity (if verbalized by the patient): Female Sexual Orientation (if Verbalized by the Patient): Bisexual Spiritual care concerns: No Agree to blood products: Yes Exam Narrative: GENERAL: Well-appearing, well-nourished, and in no acute distress. HEAD: Normocephalic, atraumatic. EYES: PERRLA and EOMI. ENT: Nares clear, no rhinorrhea or epistaxis. Mucous membranes moist. Oropharynx without tonsillar hypertrophy exudate or other lesions. NECK: Supple. No adenopathy or masses. CHEST: No respiratory distress. Clear to auscultation. No wheezes rales or rhonchi HEART: Regular rate and rhythm. No murmur heard. Normal peripheral pulses. ABDO
[2023-01-28 14:04] LABS: Influenza A QL RT-PCR Negative (Negative); Influenza B QL RT-PCR Negative (Negative); RSV RNA, RT-PCR Negative (Negative); SARS-CoV-2 RNA PCR Negative (Negative)
[2023-01-28 14:09] LABS: Thyroid Stimulating Hormone 0.301 uIU/mL (0.465-4.680)
[2023-01-28 15:02] LABS: Acetaminophen < 10 ug/mL (10-30); Salicylate < 1.0 mg/dL (2-20)
[2023-01-28 15:43] LABS: Amphetamine Screen Urine Negative (Negative); Barbiturate Screen Urine Negative (Negative); Benzodiazepines Screen Urine Negative (Negative); Cannabinoid Screen Urine Negative (Negative); Cocaine Screen Urine Negative (Negative); Methadone Screen Urine Negative (Negative); Opiate Screen Urine Negative (Negative); Phencyclidine Screen Urine Negative (Negative)
[2023-01-28 17:48] VITALS: BP 141/74; PULSE 87; RESP 20; O2SAT 98
== END 2023-01-28 17:49 | disposition home or self-care (01) ==
PROVIDERS: Emergency Provider Physician Assistant; PCP Nurse Practitioner Family
DX: F32.A Depression, unspecified (principal); J45.909 Unspecified asthma, uncomplicated; K21.9 Gastro-esophageal reflux disease without esophagitis; E66.3 Overweight; Z68.28 Body mass index [BMI] 28.0-28.9, adult; Z87.01 Personal history of pneumonia (recurrent); Z86.2 Personal history of diseases of the blood and blood-forming organs and certain disorders involving the immune mechanism; Z87.442 Personal history of urinary calculi; Z87.440 Personal history of urinary (tract) infections; Z87.891 Personal history of nicotine dependence
CPT/HCPCS: 36415; 80053; 80307; 81001; 81025; 84443; 85025; 87086; 87088; 87637; 99284

== ENCOUNTER 2023-02-08 17:53 | Emergency (ER) | payer OTHER, SELFPAY ==
--- NOTE | ~2023-02-08 | CT_ITS ---
EXAMINATION: CT abdomen pelvis wo con DATE: 02/08/2023 20:49 INDICATION: Kidney stone. TECHNIQUE: Computed tomography (CT) of the abdomen and pelvis was performed without intravenous contr ast. Automated exposure control and iterative reconstruction technique were employed. The dose-length product was 216.95 mGy-cm. COMPARISON: CT abdomen and pelvis 07/26/2022 FINDINGS: The visualized portions of the lung bases are clear without pneumonia or pleural effusion. The heart size is normal. No pericardial effusion. The liver, gallbladder, spleen, pancreas, adrenal glands, and kidneys are normal. There is no urolithiasis. There are no dilated loops of bowel. The ap pendix is normal. There are no pathologically enlarged lymph nodes. There is no free intraperitoneal fluid. There is mild lumbar spondylosis. IMPRESSION: 1. No urolithiasis. Reviewed, dictated and finalized at location E. HOIST OPERATOR IMPRESSION: 1. No urolithiasis.
[2023-02-08 18:31] VITALS: BP 140/92; PULSE 106; RESP 18; TEMP 36.8; O2SAT 98
--- NOTE | 2023-02-08 20:12 | ED.ABDPAIN ---
HPI - Abdominal Pain General Chief Complaint: Abdominal Pain Stated Complaint: abdominal pain radiating into back Time Seen by Provider: 02/08/23 20:11 Source: patient Mode of arrival: ambulatory Limitations: no limitations History of Present Illness HPI narrative: 27 years old white female came to the ED by private car complaining of LOWER BACK PAIN, right flank pain which started roughly 1 week ago, patient was diagnosed of urinary tract infection by her family physician and has been on Keflex since without improvement. LOWER BACK PAIN WORSE WITH MOVEMENT, BETTER LAYING STILL. History of kidney stones. She denies any fever, chills, nausea, vomiting OR URINARY SYMPTOMS. pain radiating to right lower quadrant. History of anxiety, depression, asthma. PATIENT SCARED TO TRY ANY NEW MEDICATION FOR POSSIBLE ALLERGY Related Data Home Medications Medication Instructions Recorded Confirmed albuterol sulfate 90 mcg/actuation inhalation 07/22/20 12/05/22 aerosol inhaler (ProAir HFA) fluoxetine 20 mg capsule (Prozac) 20 mg PO DAILY 09/12/22 12/05/22 hydroxyzine HCl 25 mg tablet 25 mg PO TID PRN 09/12/22 12/05/22 Allergies Allergy/AdvReac Type Severity Reaction Status Date / Time escitalopram [From Lexapro] Allergy Severe Hives Verified 02/08/23 17:54 amoxicillin Allergy Mild Rash Verified 02/08/23 17:54 Iodinated Contrast Media Allergy Mild Rash Verified 02/08/23 17:54 aspirin Allergy Swelling Verified 02/08/23 17:54 of Lip/Tongue/Throat clindamycin Allergy Itching Verified 02/08/23 17:54 ibuprofen Allergy Swelling Verified 02/08/23 17:54 of Lip/Tongue/Throat latex Allergy Itching Verified 02/08/23 17:54 seafood AdvReac Mild Hives Uncoded 02/08/23 17:54 Review of Systems Review of Systems: All systems reviewed & are unremarkable except as noted in HPI and below PMFSH Past Medical History Medical History Anemia Anxiety Asthma Breast lump or mass Depression Encounter for screening examination for sexually transmitted disease GERD (gastroesophageal reflux disease) Headache History of kidney stones Initiation of Depo Provera Migraines Nipple discharge in antepartum period Overweight (BMI 25.0-29.9) Pneumonia Surveillance for Depo-Provera contraception Urinary tract infection Surgical History Surgical History No history of previous surgery Family History Family History Mother Cancer Grandparent Diabetes mellitus paternal grandmother Hypertension paternal grandmother Other Seizure daughter Social History Social History Smoking status: Former smoker Second hand tobacco smoke exposure: No Alcohol intake: current Alcohol use details: once a month-wine coolers Substance use: never Substance use type: does not use Living arrangements: other Additional living arrangements comments: lives with grandmother Occupation/Education: occupation Additional occupation/education comments: [employer] Gender identity (if verbalized by the patient): Female Sexual Orientation (if Verbalized by the Patient): Bisexual Spiritual care concerns: No Agree to blood products: Yes Exam Narrative: General appearance: Well-developed, well-nourished Skin: Normal color Head: Normocephalic, nontraumatic Eyes: Clear conjunctiva ENT: Oropharynx normal, ears normal, nose normal Neck: Supple, nontender Chest and respiratory: Airway patent, no respiratory distress, no accessory muscle use Heart: Regular rate/rhythm Abdomen: Soft, right flank tenderness right lower quadrant tenderness, no rebound, no guarding Vascular: Normal peripheral pulses, normal capillary refill. Musculoskeletal: Normal range of motion, nontender back Neurologic: Alert and melani
--- NOTE | 2023-02-08 20:13 | PC.NURSE ---
pt states they think they have a kidney stone because they have a hx of this and it feels similar. pt MD started them on antibiotics for kidney infection after getting a urine sample, but they did not do blood work of imaging.
[2023-02-08 20:32] LABS: Basophils Absolute Auto 0.1 K/mm3 (0.0-0.1); Basophils Percent Auto 0.4 % (0.2-1.2); Eosinophils Absolute Auto 0.2 K/mm3 (0-0.3); Eosinophils Percent Auto 1.3 % (0-4.4); Hemoglobin 14.5 g/dL (12.0-15.0); Immature Granulocyte Absolute 0.08 K/mm3 (0.00-0.031); Immature Granulocyte Percent A 0.5 % (0-0.5); Lymphocytes Absolute Auto 4.58 K/mm3 (0.9-3.2); Lymphocytes Percent Auto 28.7 % (18.3-44.2); Mean Corpuscular HGB Conc 31.5 g/dl (32-36); Mean Corpuscular Hemoglobin 25.5 pg (26-34); Mean Corpuscular Volume 80.8 fl (80-100); Mean Platelet Volume 9.1 fl (7.4-10.4); Monocytes Absolute Auto 0.6 K/mm3 (0.1-0.6); Neutrophils Absolute Auto 10.4 K/mm3 (1.3-6.7); Neutrophils Percent Auto 65.1 % (45.5-73.1); Platelet Count Result 338 k/mm3 (150-375); Red Blood Count 5.69 M/mm3 (4.2-5.4); Red Cell Distribution Width 13.7 % (11.5-14.5)
[2023-02-08] MEDS: SODIUM CHLORIDE 0.9% IV 1,000 ML 999 ML IV CONT (20:42)
[2023-02-08 20:52] LABS: Appearance Urine Cloudy (Clear); Bacteria Urine 1+ /hpf; Bilirubin Urine Negative (Negative); Blood Urine Negative (Negative); Color Urine Yellow (Yellow); Glucose Urine UA Negative (Negative); Ketones Urine Negative (Negative); Leukocyte Esterase Ur Trace LEU/UL (Negative); Need Manual Microscopic Reviewed; Nitrate Urine Negative (Negative); Protein Urine Negative (Negative); RBC Urine 0-2 /hpf (0-2); Specific Grav Ur 1.021 (1.001-1.035); Squamous Epithelial Cell Urine Moderate /hpf (Few); Urobilinogen Urine 0.2 mg/dL (<2.0); pH Urine 5.5 (5.0-9.0)
[2023-02-08 20:54] LABS: Add Urine Microscopic? YES
[2023-02-08 20:58] LABS: Alanine Aminotransferase 27 U/L (6-35); Albumin Level 4.7 g/dL (3.5-5.1); Alkaline Phosphatase 96 U/L (38-126); Anion Gap 8 mmol/L (8-16); Aspartate Amino Transferase 28 U/L (14-36); Bilirubin,Total 0.4 mg/dL (0.2-1.3); Blood Urea Nitrogen 12 mg/dL (7-17); Calcium 9.3 mg/dL (8.4-10.2); Carbon Dioxide 25 mmol/L (22-30); Chloride 108 mmol/L (98-107); Estimated CRCL calculation 83 ml/min; Estimated Glomerular Filt Rate > 60; Glucose 91 mg/dL (65-110); Lipase 59 U/L (23-300); Potassium 3.7 mmol/L (3.4-5.0); Sodium 141 mmol/L (137-145)
--- NOTE | 2023-02-08 22:05 | PC.NURSE ---
pt declines the antibiotic ordered by MD. RN and MD educated pt on use of IV antibiotics and pt would still like to decline
[2023-02-08 22:16] VITALS: BP 118/72; PULSE 71; RESP 19; O2SAT 100
== END 2023-02-08 22:18 | disposition home or self-care (01) ==
PROVIDERS: Emergency Provider Emergency Medicine; PCP Nurse Practitioner Family
DX: N39.0 Urinary tract infection, site not specified (principal); M54.50 Low back pain, unspecified; G89.29 Other chronic pain; J45.909 Unspecified asthma, uncomplicated; K21.9 Gastro-esophageal reflux disease without esophagitis; E66.3 Overweight; Z68.27 Body mass index [BMI] 27.0-27.9, adult; F41.9 Anxiety disorder, unspecified; F32.A Depression, unspecified; Z86.2 Personal history of diseases of the blood and blood-forming organs and certain disorders involving the immune mechanism; Z87.442 Personal history of urinary calculi; Z87.01 Personal history of pneumonia (recurrent); Z87.440 Personal history of urinary (tract) infections; Z87.891 Personal history of nicotine dependence
CPT/HCPCS: 36415; 74176; 80053; 81001; 81025; 83690; 85025; 87077; 87086; 87088; 96360; 99284; J7030

== ENCOUNTER 2023-03-29 20:16 | Emergency (ER) | payer OTHER, SELFPAY ==
--- NOTE | ~2023-03-29 | XR_ITS ---
EXAMINATION: XR chest 2V DATE: 03/29/2023 22:46 INDICATION: Chest pain. Vomiting. Flank pain. TECHNIQUE: Frontal and lateral views of the chest were obtained. COMPARISON: Chest 2 views 01/26/2023, CT abdomen and pelvis 03/29/2023 FINDINGS: There is no pneumonia, pleural effusion, or pneumothorax. The heart size is normal. IMPRESSION: 1. No acute cardiopulmonary disease. Reviewed, dictated and finalized at location E. CE SERVICES CLERK
--- NOTE | ~2023-03-29 | CT_ITS ---
EXAMINATION: CT abdomen pelvis wo con DATE: 03/29/2023 22:42 INDICATION: Right upper quadrant abdominal pain. Right flank pain. TECHNIQUE: Computed tomography (CT) of the abdomen and pelvis was performed without intravenous contr ast. Automated exposure control and iterative reconstruction technique were employed. The dose-length product was 402.70 mGy-cm. COMPARISON: CT abdomen and pelvis 02/08/2023 FINDINGS: The visualized portions of the lung bases are clear without pneumonia or pleural effusion. The heart size is normal. No pericardial effusion. The liver, gallbladder, spleen, pancreas, adrenal glands, and kidneys are normal. There is no urolithiasis. There are no dilated loops of bowel. The ap pendix is normal. There are no pathologically enlarged lymph nodes. There is no free intraperitoneal fluid. There is mild thoracic and lumbar spondylosis. IMPRESSION: 1. No etiology for the patient's symptoms. Reviewed, dictated and finalized at location E. D ARCHITECT
[2023-03-29 20:24] VITALS: BP 141/98; PULSE 118; RESP 20; TEMP 37.2; O2SAT 100
--- NOTE | 2023-03-29 20:57 | ECG_ITS ---
Measurements Intervals [place] Rate: 111 P: 37 [place]: 170 QRS: 50 QRSD: 86 T: 9 QT: 308 QTc: 419 Interpretive Statements SINUS TACHYCARDIA NONSPECIFIC ST-T WAVE ABNORMALITY- INFERIOR LEADS ABNORMAL ECG COMPARED TO ECG 10/15/2022 19:40:19 NO SIGNIFICANT CHANGES Electronically Signed On 03-30-2023 6:09:43 ABSTRACTOR by Leroy Martin D.O.
[2023-03-29 21:08] VITALS: BP 150/97; PULSE 100; RESP 16; TEMP 36.6; O2SAT 99
[2023-03-29 21:40] LABS: Basophils Absolute Auto 0.1 K/mm3 (0.0-0.1); Basophils Percent Auto 0.5 % (0.2-1.2); Eosinophils Absolute Auto 0.2 K/mm3 (0-0.3); Hematocrit 47.7 % (37.0-47.0); Hemoglobin 14.9 g/dL (12.0-15.0); Immature Granulocyte Absolute 0.07 K/mm3 (0.00-0.031); Immature Granulocyte Percent A 0.5 % (0-0.5); Lymphocytes Absolute Auto 3.33 K/mm3 (0.9-3.2); Lymphocytes Percent Auto 22.5 % (18.3-44.2); Mean Corpuscular HGB Conc 31.2 g/dl (32-36); Mean Corpuscular Hemoglobin 25.4 pg (26-34); Mean Corpuscular Volume 81.3 fl (80-100); Mean Platelet Volume 9.2 fl (7.4-10.4); Monocytes Absolute Auto 0.8 K/mm3 (0.1-0.6); Monocytes Percent Auto 5.4 % (2.6-8.5); Neutrophils Absolute Auto 10.4 K/mm3 (1.3-6.7); Neutrophils Percent Auto 70.1 % (45.5-73.1); Platelet Count Result 350 k/mm3 (150-375); Red Blood Count 5.87 M/mm3 (4.2-5.4); Red Cell Distribution Width 13.5 % (11.5-14.5); White Blood Count 14.8 K/mm3 (4.5-10.0)
[2023-03-29 21:45] LABS: Appearance Urine Clear (Clear); Bacteria Urine None Seen /hpf; Bilirubin Urine Negative (Negative); Blood Urine Negative (Negative); Color Urine Yellow (Yellow); Glucose Urine UA Negative (Negative); Ketones Urine Negative (Negative); Leukocyte Esterase Ur Trace LEU/UL (Negative); Nitrate Urine Negative (Negative); Non Pathogenic Casts 0-2; Protein Urine Negative (Negative); RBC Urine 0-2 /hpf (0-2); Squamous Epithelial Cell Urine Few /hpf (Few); Urobilinogen Urine 0.2 mg/dL (<2.0); WBC Urine 0-5 /hpf
[2023-03-29 21:47] LABS: Add Urine Microscopic? YES
[2023-03-29 21:51] LABS: Alanine Aminotransferase 34 U/L (6-35); Albumin Level 4.6 g/dL (3.5-5.1); Alkaline Phosphatase 118 U/L (38-126); Anion Gap 9 mmol/L (8-16); Aspartate Amino Transferase 23 U/L (14-36); Bilirubin,Total 0.3 mg/dL (0.2-1.3); Blood Urea Nitrogen 8 mg/dL (7-17); Calcium 9.7 mg/dL (8.4-10.2); Carbon Dioxide 26 mmol/L (22-30); Chloride 107 mmol/L (98-107); Estimated CRCL calculation 124 ml/min; Estimated Glomerular Filt Rate > 60; Glucose 98 mg/dL (65-110); Lipase 54 U/L (23-300); Potassium 3.9 mmol/L (3.4-5.0); Sodium 142 mmol/L (137-145)
[2023-03-29 22:17] LABS: Troponin I < 0.012 ng/mL (0.000-0.034)
[2023-03-29 22:22] VITALS: BP 116/84; PULSE 103; RESP 20; O2SAT 98
[2023-03-29 22:22] LABS: Influenza A QL RT-PCR Negative (Negative); Influenza B QL RT-PCR Negative (Negative); RSV RNA, RT-PCR Negative (Negative); SARS-CoV-2 RNA PCR Negative (Negative)
--- NOTE | 2023-03-29 22:27 | ED.ABDPAIN ---
HPI - Abdominal Pain General Chief Complaint: Abdominal Pain Stated Complaint: flank pain Time Seen by Provider: 03/29/23 21:25 Source: patient Mode of arrival: ambulatory Limitations: no limitations History of Present Illness HPI narrative: Patient is a 27-year-old female who presents the ED with multiple complaints. Patient reports having pain in her right-sided abdomen, radiating around to her right back for the last 2 days. States pain has been fairly constant. She tried taking Tylenol with minimal improvement. Reports some alleviation of pain with laying flat. States pain feels similar to when her gallbladder was inflamed or when she had a kidney infection. She also reports having intermittent nausea, 1 episode of vomiting today. Reports diarrhea for the last 2 days. Reports an episode of chest pain that occurred around 2:00 p.m. today and resolved after she vomited. Denies any current chest pain. Denies shortness breath. Denies fevers, dysuria, hematuria, rectal bleeding, melena. Related Data Home Medications Medication Instructions Recorded Confirmed albuterol sulfate 90 mcg/actuation inhalation 07/22/20 12/05/22 aerosol inhaler (ProAir HFA) fluoxetine 20 mg capsule (Prozac) 20 mg PO DAILY 09/12/22 12/05/22 hydroxyzine HCl 25 mg tablet 25 mg PO TID PRN 09/12/22 12/05/22 Allergies Allergy/AdvReac Type Severity Reaction Status Date / Time escitalopram [From Lexapro] Allergy Severe Hives Verified 02/08/23 17:54 amoxicillin Allergy Mild Rash Verified 02/08/23 17:54 Iodinated Contrast Media Allergy Mild Rash Verified 02/08/23 17:54 aspirin Allergy Swelling Verified 02/08/23 17:54 of Lip/Tongue/Throat clindamycin Allergy Itching Verified 02/08/23 17:54 ibuprofen Allergy Swelling Verified 02/08/23 17:54 of Lip/Tongue/Throat latex Allergy Itching Verified 02/08/23 17:54 seafood AdvReac Mild Hives Uncoded 02/08/23 17:54 Review of Systems Review of Systems: CONSTITUTIONAL: Denies fever, chills, or sweats. CARDIOVASCULAR: See HPI. RESPIRATORY: Denies dyspnea. GASTROINTESTINAL: See HPI. GENITOURINARY: Denies dysuria or hematuria. MUSCULOSKELETAL: See HPI. All systems reviewed & are unremarkable except as noted in HPI and below PMFSH Past Medical History Medical History Anemia Anxiety Asthma Breast lump or mass Depression Encounter for screening examination for sexually transmitted disease GERD (gastroesophageal reflux disease) Headache History of kidney stones Initiation of Depo Provera Migraines Nipple discharge in antepartum period Overweight (BMI 25.0-29.9) Pneumonia Surveillance for Depo-Provera contraception Urinary tract infection Surgical History Surgical History No history of previous surgery Family History Family History Mother Cancer Grandparent Diabetes mellitus paternal grandmother Hypertension paternal grandmother Other Seizure daughter Social History Social History Smoking status: Former smoker Second hand tobacco smoke exposure: No Alcohol intake: current Alcohol use details: once a month-wine coolers Substance use: never Substance use type: does not use Living arrangements: other Additional living arrangements comments: lives with grandmother Occupation/Education: occupation Additional occupation/education comments: [employer] Gender identity (if verbalized by the patient): Female Sexual Orientation (if Verbalized by the Patient): Bisexual Spiritual care concerns: No Agree to blood products: Yes Exam Narrative: GENERAL: Well appearing, well-nourished, non-toxic, in no acute distress. HEAD: Normocephalic, atraumatic. RESPIRATORY: Airway patent
[2023-03-29 23:59] VITALS: BP 113/86; PULSE 106; RESP 16; O2SAT 98
== END 2023-03-30 00:33 | disposition home or self-care (01) ==
PROVIDERS: Emergency Medicine; Emergency Provider Physician Assistant; PCP Nurse Practitioner Family
DX: R10.9 Unspecified abdominal pain (principal); R07.89 Other chest pain; R11.2 Nausea with vomiting, unspecified; K21.9 Gastro-esophageal reflux disease without esophagitis; Z20.822 Contact with and (suspected) exposure to COVID-19; J45.909 Unspecified asthma, uncomplicated; F41.9 Anxiety disorder, unspecified; F32.A Depression, unspecified; Z87.01 Personal history of pneumonia (recurrent); Z87.442 Personal history of urinary calculi; Z87.440 Personal history of urinary (tract) infections; Z87.891 Personal history of nicotine dependence; R00.0 Tachycardia, unspecified; R94.31 Abnormal electrocardiogram [ECG] [EKG]
CPT/HCPCS: 36415; 71046; 74176; 80053; 81001; 81025; 83690; 84484; 85025; 87637; 93005; 99284

== ENCOUNTER 2023-08-13 11:24 | Outpatient (CLI) | payer OTHER, SELFPAY ==
[2023-08-13 11:38] LABS: Basophils Absolute Auto 0.1 K/mm3 (0.0-0.1); Basophils Percent Auto 0.5 % (0.2-1.2); Eosinophils Absolute Auto 0.3 K/mm3 (0-0.3); Eosinophils Percent Auto 2.7 % (0-4.4); Hematocrit 43.7 % (37.0-47.0); Hemoglobin 13.8 g/dL (12.0-15.0); Immature Granulocyte Absolute 0.05 K/mm3 (0.00-0.031); Immature Granulocyte Percent A 0.4 % (0-0.5); Lymphocytes Absolute Auto 4.09 K/mm3 (0.9-3.2); Lymphocytes Percent Auto 34.6 % (18.3-44.2); Mean Corpuscular HGB Conc 31.6 g/dl (32-36); Mean Corpuscular Hemoglobin 25.8 pg (26-34); Mean Corpuscular Volume 81.8 fl (80-100); Mean Platelet Volume 9.1 fl (7.4-10.4); Monocytes Absolute Auto 0.7 K/mm3 (0.1-0.6); Monocytes Percent Auto 5.9 % (2.6-8.5); Neutrophils Absolute Auto 6.6 K/mm3 (1.3-6.7); Neutrophils Percent Auto 55.9 % (45.5-73.1); Platelet Count Result 300 k/mm3 (150-375); Red Blood Count 5.34 M/mm3 (4.2-5.4); Red Cell Distribution Width 13.2 % (11.5-14.5); White Blood Count 11.8 K/mm3 (4.5-10.0)
[2023-08-13 11:43] LABS: Blood Urea Nitrogen 10 mg/dL (8-26); Carbon Dioxide 29 mmol/L (22-30); Chloride 101 mmol/L (98-109); Estimated Glomerular Filt Rate > 60; Glucose 111 mg/dL (70-105); Ionized Calcium (POC) 1.26 mmol/L (1.11-1.31); Potassium 3.5 mmol/L (3.5-4.9); Sodium 143 mmol/L (138-146)
[2023-08-13 13:27] LABS: Alanine Aminotransferase 28 U/L (6-35); Albumin Level 4.5 g/dL (3.5-5.1); Alkaline Phosphatase 85 U/L (38-126); Anion Gap 8 mmol/L (4-12); Aspartate Amino Transferase 25 U/L (14-36); Bilirubin,Total 0.7 mg/dL (0.2-1.3); Blood Urea Nitrogen 11 mg/dL (7-17); Calcium 9.5 mg/dL (8.4-10.2); Carbon Dioxide 27 mmol/L (22-30); Chloride 105 mmol/L (98-107); Estimated Glomerular Filt Rate > 60; Glucose 108 mg/dL (65-110); Potassium 3.5 mmol/L (3.4-5.0); Sodium 140 mmol/L (137-145)
== END 2023-08-13 11:25 | disposition home or self-care (01) ==
LOC: ANHLAB 11:26
PROVIDERS: PCP Nurse Practitioner Family; Visit Provider Internal Medicine Hematology & Oncology
DX: D72.829 Elevated white blood cell count, unspecified (principal)
CPT/HCPCS: 36415; 80047; 80053; 85025

== ENCOUNTER 2023-09-29 13:04 | Emergency (ER) | payer OTHER, SELFPAY ==
--- NOTE | ~2023-09-29 | CT_ITS ---
CT abdomen pelvis wo con Ordering provider: Manfred Ruiz MD History: 28 years Female with . ab pain, left flank pain . Comparison: None. Technique: CT abdomen and pelvis without IV and without oral contrast. Automated exposure control and iterative reconstruction technique were employed. The dose-length product was 604.98 mGy-cm. Findings: VISUALIZED LOWER CHEST: Subsegmental atelectasis in the middle lobe. Dependent atelectatic changes UPPER ABDOMINAL ORGANS: Liver: Normal. Gallbladder: Normal. Spleen: Normal. Stomach/duodenum: Normal. Pancreas: Normal. Adrenals: Normal. Kidneys: Normal. PELVIC ORGANS: The bladder is normal. BOWEL AND MESENTERY: Colon: No evidence of diverticulitis. Normal appendix. Small Bowel: Normal. No obstruction. Peritoneum/mesentery: No free air or free fluid. No mesenteric lymphadenopathy. RETROPERITONEUM: Mild atheromatous disease of the abdominal aorta. No retroperitoneal lymphadenopat hy. MUSCULOSKELETAL: Superficial soft tissues: Possible wide based umbilicus hernia. Otherwise, The superficial soft tissu es are normal. Bones: Normal spine. IMPRESSION: 1. No acute abdominal process with no evidence of appendicitis, diverticulitis or obstruction. 2. No definite renal stones or significant hydronephrotic changes. Reviewed, dictated and finalized at location A.
[2023-09-29 13:13] VITALS: BP 134/93; PULSE 117; RESP 16; TEMP 37.4; O2SAT 100
[2023-09-29 13:31] VITALS: BP 123/92; PULSE 118; RESP 22; TEMP 36.8; O2SAT 99
[2023-09-29] MEDS: SODIUM CHLORIDE 0.9% IV 2,000 ML 999 ML IV CONT (14:00)
[2023-09-29 14:01] VITALS: BP 130/91; PULSE 108; RESP 20; TEMP 36.9; O2SAT 99
--- NOTE | 2023-09-29 14:04 | PC.NURSE ---
Pt unable to void at this time for UA. Abscess to pt palate, no drainage present. States on day 2 of Cephalexin for abscess
[2023-09-29 14:17] LABS: Basophils Absolute Auto 0.1 K/mm3 (0.0-0.1); Basophils Percent Auto 0.9 % (0.2-1.2); Eosinophils Absolute Auto 0.2 K/mm3 (0-0.3); Eosinophils Percent Auto 1.7 % (0-4.4); Hematocrit 43.3 % (37.0-47.0); Hemoglobin 14.1 g/dL (12.0-15.0); Immature Granulocyte Percent A 1.1 % (0-0.5); Lymphocytes Absolute Auto 3.87 K/mm3 (0.9-3.2); Lymphocytes Percent Auto 43.9 % (18.3-44.2); Mean Corpuscular HGB Conc 32.6 g/dl (32-36); Mean Corpuscular Hemoglobin 26.1 pg (26-34); Mean Corpuscular Volume 80.2 fl (80-100); Mean Platelet Volume 9.6 fl (7.4-10.4); Monocytes Absolute Auto 0.5 K/mm3 (0.1-0.6); Monocytes Percent Auto 5.4 % (2.6-8.5); Neutrophils Absolute Auto 4.1 K/mm3 (1.3-6.7); Platelet Count Result 177 k/mm3 (150-375); Red Cell Distribution Width 13.9 % (11.5-14.5); White Blood Count 8.8 K/mm3 (4.5-10.0)
[2023-09-29 14:19] LABS: Influenza A QL RT-PCR Negative (Negative); Influenza B QL RT-PCR Negative (Negative); RSV RNA, RT-PCR Negative (Negative); SARS-CoV-2 RNA PCR Negative (Negative)
--- NOTE | 2023-09-29 14:19 | ED.BACK ---
HPI - Back Pain/Injury General Chief Complaint: Back Pain/Injury Stated Complaint: Left Flank Pain Time Seen by Provider: 09/29/23 13:17 History of Present Illness HPI Narrative: 28-year-old female presenting to the emergency department for left flank pain, discolored urine. Patient is currently on antibiotics for an abscess on the roof of her mouth. Patient presents emergency department for evaluation for left CVA tenderness and dark colored urine. Patient reports she does have a prior history of kidney stones, she suspects she passed a kidney stone earlier in the week. Patient states she does not drink enough water. Related Data Home Medications Medication Instructions Recorded Confirmed albuterol sulfate 90 mcg/actuation inhalation 07/22/20 06/18/23 aerosol inhaler (ProAir HFA) sertraline 50 mg tablet (Zoloft) 50 mg PO DAILY 06/18/23 06/18/23 Allergies Allergy/AdvReac Type Severity Reaction Status Date / Time escitalopram [From Lexapro] Allergy Severe Hives Verified 09/29/23 14:09 amoxicillin Allergy Mild Rash Verified 09/29/23 14:09 Iodinated Contrast Media Allergy Mild Rash Verified 09/29/23 14:09 aspirin Allergy Swelling Verified 09/29/23 14:09 of Lip/Tongue/Throat clindamycin Allergy Itching Verified 09/29/23 14:09 ibuprofen Allergy Swelling Verified 09/29/23 14:09 of Lip/Tongue/Throat latex Allergy Itching Verified 09/29/23 14:09 seafood AdvReac Mild Hives Uncoded 09/29/23 14:09 Review of Systems Review of Systems: All systems reviewed & are unremarkable except as noted in HPI and below PMFSH Past Medical History Medical History Anemia Anxiety Asthma Breast lump or mass Depression Encounter for screening examination for sexually transmitted disease GERD (gastroesophageal reflux disease) Headache History of kidney stones Initiation of Depo Provera Migraines Nipple discharge in antepartum period Overweight (BMI 25.0-29.9) Pneumonia Surveillance for Depo-Provera contraception Urinary tract infection Surgical History Surgical History No history of previous surgery Family History Family History Mother Cancer Grandparent Diabetes mellitus paternal grandmother Hypertension paternal grandmother Other Seizure daughter Social History Social History (Updated 06/18/23 @ 09:37 by Ginette Rocha [facility]) Smoking status: Former smoker Tobacco type: cigarettes Second hand tobacco smoke exposure: No Smoking end date: 05/04/23 Alcohol intake: former Alcohol use details: once a month-wine coolers Substance use: never Substance use type: does not use Living arrangements: other Additional living arrangements comments: lives with grandmother Occupation/Education: unemployed 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 HEAD: normocephalic, atraumatic. EYES: PERRLA/EOMI, conjunctivae clear. NOSE: Normal no drainage EARS:TMS clear with good light reflex. THROAT: Pharynx clear, no exudate. NECK: Supple. No adenopathy, no masses. RESPIRATORY: Airway patent, respirations nonlabored. Clear to auscultation bilaterally, no rales, rhonchi, wheezing. CARDIOVASCULAR: Regular rate and rhythm without murmurs rubs or gallops. ABDOMINAL: Left CVA tenderness to palpation MUSCULOSKELETAL: Moves all extremities. Strength/ROM intact, No edema, No calf tenderness. NEURO: Alert. Cranial nerves II through XII intact. Good gait. Good coordination SKIN: Warm, dry. Normal Color Course Course Emergency Course:
[2023-09-29 14:23] LABS: INR 1.1; Prothrombin Time 14.2 Seconds (11.1-14.7)
[2023-09-29 14:24] LABS: Partial Thromboplastin Time 35.1 Seconds (22.3-36.8)
[2023-09-29 14:25] LABS: Alanine Aminotransferase 122 U/L (6-35); Albumin Level 4.1 g/dL (3.5-5.1); Alkaline Phosphatase 153 U/L (38-126); Anion Gap 12 mmol/L (4-12); Aspartate Amino Transferase 106 U/L (14-36); Bilirubin,Total 0.6 mg/dL (0.2-1.3); Blood Urea Nitrogen 7 mg/dL (7-17); Calcium 8.6 mg/dL (8.4-10.2); Carbon Dioxide 24 mmol/L (22-30); Chloride 100 mmol/L (98-107); Estimated CRCL calculation 101 ml/min; Estimated Glomerular Filt Rate > 60; Glucose 108 mg/dL (65-110); Lactic Acid Reflex 1.6 mmol/L (0.7-2.0); Potassium 3.5 mmol/L (3.4-5.0); Sodium 136 mmol/L (137-145)
[2023-09-29 14:27] LABS: Atypical Lymphocytes Present; Platelet Estimate Adequate (Adequate); Schistocytes None Seen
[2023-09-29 14:31] VITALS: BP 121/86; PULSE 109; RESP 21; O2SAT 100
[2023-09-29 15:14] LABS: Appearance Urine Clear (Clear); Bilirubin Urine Negative (Negative); Blood Urine Negative (Negative); Color Urine Yellow (Yellow); Glucose Urine UA Negative (Negative); Ketones Urine Negative (Negative); Leukocyte Esterase Ur Negative LEU/UL (Negative); Nitrate Urine Negative (Negative); Protein Urine Negative (Negative); Specific Grav Ur 1.004 (1.001-1.035); pH Urine 6.5 (5.0-9.0)
[2023-09-29 15:23] LABS: Add Urine Microscopic? NO
[2023-09-29 15:44] LABS: Pregnancy On Board Control Positive; Urine Pregnancy Test Negative
[2023-09-29 16:00] VITALS: BP 125/86; PULSE 108; RESP 16; O2SAT 99
== END 2023-09-29 17:38 | disposition home or self-care (01) ==
PROVIDERS: Emergency Provider Emergency Medicine; PCP Nurse Practitioner Family
DX: R10.9 Unspecified abdominal pain (principal); Z20.822 Contact with and (suspected) exposure to COVID-19; J45.909 Unspecified asthma, uncomplicated; K21.9 Gastro-esophageal reflux disease without esophagitis; E66.3 Overweight; Z68.32 Body mass index [BMI] 32.0-32.9, adult; F41.9 Anxiety disorder, unspecified; F32.A Depression, unspecified; Z86.2 Personal history of diseases of the blood and blood-forming organs and certain disorders involving the immune mechanism; Z87.442 Personal history of urinary calculi; Z87.01 Personal history of pneumonia (recurrent); Z87.440 Personal history of urinary (tract) infections; Z87.891 Personal history of nicotine dependence; Z79.899 Other long term (current) drug therapy
CPT/HCPCS: 36415; 74176; 80053; 81003; 81025; 83605; 85025; 85610; 85730; 87637; 99284; J7030

== ENCOUNTER 2023-10-15 14:33 | Emergency (ER) | payer OTHER, SELFPAY ==
[2023-10-15] VITALS (16 sets, daily range): BP systolic 122–136; BP diastolic 68–89; PULSE 116–138; RESP 17–29; TEMP 36.4; O2SAT 96–98
--- NOTE | ~2023-10-15 | XR_ITS ---
XR chest 2V Ordering provider: Betsy Fermin III, DO History: 28 years Female with . LEFT SIDED CP X 2 HRS . Comparison: March 29, 2023 FINDINGS: MEDIASTINUM: The cardiac silhouette is not enlarged. LUNGS: No infiltrates, effusions or pneumothorax. OTHER: No free air under the diaphragm. IMPRESSION: No acute cardiopulmonary pathology. Reviewed, dictated and finalized at location A.
--- NOTE | 2023-10-15 14:34 | ECG_ITS ---
Test Date: 2023-10-15 14:42:09 Measurements Intervals [place] Rate: 134 P: 35 MA: 149 QRS: 49 QRSD: 94 T: -10 QT: 273 QTc: 408 Interpretive Statements SINUS TACHYCARDIA NONSPECIFIC ST & T-WAVE ABNORMALITY ABNORMAL RHYTHM ECG No previous ECG available for comparison Electronically Signed On 10-15-2023 14:53:12 CDT by Priyank De Jesus M.D.
--- NOTE | 2023-10-15 14:37 | ED.CHESTPAIN ---
HPI - Chest Pain General Chief Complaint: Chest Pain <Shiloh Fernandez APRN - Last Filed: 10/15/23 16:40> Stated Complaint: cp, bloody diarrhea <Shiloh Fernandez APRN - Last Filed: 10/15/23 16:40> Time Seen by Provider: 10/15/23 14:35 <Shiloh Fernandez APRN - Last Filed: 10/15/23 16:40> Focused HPI: Pt presents with chest pain that started two hours, R sided flank pain that started around the same time. Pt reports she's had a fever since and has diarrhea that's bright yellow with streaks of blood that started today. Pt was here last week and completed a round of abx for a tooth infection. GENERAL: Well-appearing, well-nourished, and in no acute distress. HEAD: Normocephalic, atraumatic. CHEST: Clear to auscultation. ?No respiratory distress. HEART: Regular rate and rhythm.? NEURO: ?Alert and oriented x3. Patient screened in triage and initial orders placed.? ?Additional care and disposition to be based upon?diagnostic testing and treatment. <Shiloh Fernandez APRN - Last Filed: 10/15/23 16:40> Source: patient <Shiloh Tray Fernandez APRN - Last Filed: 10/15/23 16:40> Mode of arrival: ambulatory <Shiloh Fernandez APRN - Last Filed: 10/15/23 16:40> Limitations: no limitations <Shiloh Fernandez APRN - Last Filed: 10/15/23 16:40> History of Present Illness HPI narrative: Pt presents with intermittent episodes of upper chest pain lasting 2 seconds or so and resolving but recurring frequently. 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 Pt also has right lower rib pain that is also brief and intermittent for about the same period of time. Pt also says she has a fever. Pt has some nalscongestin and a cough. <Betsy Fermin III, DO - Last Filed: 10/15/23 18:19> MD complaint: chest pain <Shiloh Fernandez APRN - Last Filed: 10/15/23 16:40> Related Data Home Medications: Home Medications Medication Instructions Recorded Confirmed albuterol sulfate 90 mcg/actuation inhalation 07/22/20 06/18/23 aerosol inhaler (ProAir HFA) sertraline 50 mg tablet (Zoloft) 50 mg PO DAILY 06/18/23 06/18/23 <Shiloh Fernandez APRN - Last Filed: 10/15/23 16:40> Allergies/Adverse Reactions: Allergies Allergy/AdvReac Type Severity Reaction Status Date / Time escitalopram [From Lexapro] Allergy Severe Hives Verified 09/29/23 14:09 amoxicillin Allergy Mild Rash Verified 09/29/23 14:09 Iodinated Contrast Media Allergy Mild Rash Verified 09/29/23 14:09 aspirin Allergy Swelling Verified 09/29/23 14:09 of Lip/Tongue/Throat clindamycin Allergy Itching Verified 09/29/23 14:09 ibuprofen Allergy Swelling Verified 09/29/23 14:09 of Lip/Tongue/Throat latex Allergy Itching Verified 09/29/23 14:09 seafood AdvReac Mild Hives Uncoded 09/29/23 14:09 <Shiloh Fernandez APRN - Last Filed: 10/15/23 16:40> Review of Systems Review of Systems: All systems reviewed & are unremarkable except as noted in HPI and below <Betsy Fermin III, DO - Last Filed: 10/15/23 18:19> PMFSH Past Medical History Medical History: Medical History Anemia Anxiety Asthma Breast lump or mass Depression Encounter for screening examination for sexually transmitted disease GERD (gastroesophageal reflux disease) Headache History of kidney stones Initiation of Depo Provera Migraines Nipple discharge in antepartum period Overweight (BMI 25.0-29.9) Pneumonia Surveillance for Depo-Provera contraception Urinary tract infection <Shiloh Fernandez APRN - Last Filed: 10/15/23 16:40> Surgical History Surgical History: Surgical History No history of previous surgery <Shiloh Fernandez APRN - Last Filed: 10/15/23 16:40> Family History Family History: Family History Mother Cancer Grandparent
[2023-10-15 14:53] LABS: BEDSIDEPREGUCG Negative
[2023-10-15 15:30] LABS: Basophils Absolute Auto 0.1 K/mm3 (0.0-0.1); Basophils Percent Auto 0.7 % (0.2-1.2); Eosinophils Percent Auto 0.2 % (0-4.4); Hematocrit 41.5 % (37.0-47.0); Hemoglobin 13.5 g/dL (12.0-15.0); Immature Granulocyte Absolute 0.06 K/mm3 (0.00-0.031); Immature Granulocyte Percent A 0.6 % (0-0.5); Lymphocytes Absolute Auto 6.17 K/mm3 (0.9-3.2); Lymphocytes Percent Auto 61.1 % (18.3-44.2); Mean Corpuscular HGB Conc 32.5 g/dl (32-36); Mean Corpuscular Hemoglobin 25.8 pg (26-34); Mean Corpuscular Volume 79.3 fl (80-100); Mean Platelet Volume 10.1 fl (7.4-10.4); Monocytes Absolute Auto 0.4 K/mm3 (0.1-0.6); Monocytes Percent Auto 4.3 % (2.6-8.5); Neutrophils Absolute Auto 3.4 K/mm3 (1.3-6.7); Neutrophils Percent Auto 33.1 % (45.5-73.1); Platelet Count Result 124 k/mm3 (150-375); Red Blood Count 5.23 M/mm3 (4.2-5.4); Red Cell Distribution Width 14.7 % (11.5-14.5); White Blood Count 10.1 K/mm3 (4.5-10.0)
[2023-10-15 15:41] LABS: INR 1.2; Partial Thromboplastin Time 36.6 Seconds (22.3-36.8); Prothrombin Time 15.6 Seconds (11.1-14.7)
[2023-10-15 15:44] LABS: Alanine Aminotransferase 52 U/L (6-35); Albumin Level 3.7 g/dL (3.5-5.1); Alkaline Phosphatase 138 U/L (38-126); Anion Gap 11 mmol/L (4-12); Aspartate Amino Transferase 91 U/L (14-36); Blood Urea Nitrogen 9 mg/dL (7-17); Carbon Dioxide 27 mmol/L (22-30); Chloride 93 mmol/L (98-107); Estimated CRCL calculation 96 ml/min; Estimated Glomerular Filt Rate > 60; Glucose 103 mg/dL (65-110); Lipase 61 U/L (23-300); Potassium 3.6 mmol/L (3.4-5.0); Sodium 131 mmol/L (137-145)
[2023-10-15 15:54] LABS: Troponin I < 0.012 ng/mL (0.000-0.034)
[2023-10-15] MEDS: ACETAMINOPHEN ELIXIR 325 MG/10.15 ML UDC 650 MG PO (17:11)
[2023-10-15 18:00] LABS: Influenza A QL RT-PCR Negative (Negative); Influenza B QL RT-PCR Negative (Negative); RSV RNA, RT-PCR Negative (Negative); SARS-CoV-2 RNA PCR Negative (Negative)
[2023-10-15 18:00] LABS: Add Urine Microscopic? YES; Appearance Urine Cloudy (Clear); Bacteria Urine 2+ /hpf; Bilirubin Urine Negative (Negative); Blood Urine Negative (Negative); Color Urine Yellow (Yellow); Glucose Urine UA Negative (Negative); Ketones Urine 1+ mg/dL (Negative); Leukocyte Esterase Ur Negative LEU/UL (Negative); Need Manual Microscopic Reviewed; Nitrate Urine Negative (Negative); Non Pathogenic Casts 0-2; Protein Urine 1+ mg/dL (Negative); Specific Grav Ur 1.012 (1.001-1.035); Squamous Epithelial Cell Urine Many /hpf (Few)
--- NOTE | 2023-10-15 18:07 | ECG_ITS ---
Test Date: 2023-10-15 18:07:46 Measurements Intervals [place] Rate: 109 P: 25 [place]: 164 QRS: 40 QRSD: 89 T: -6 QT: 308 QTc: 416 Interpretive Statements SINUS TACHYCARDIA NONSPECIFIC T WAVE ABNORMALITY Compared to ECG 10/15/2023 14:42:09 NO SIGNIFICANT CHANGES Electronically Signed On 10-16-2023 14:42:10 CDT by Stephany Engel M.D.
[2023-10-15 18:27] LABS: Troponin I < 0.012 ng/mL (0.000-0.034)
== END 2023-10-15 18:56 | disposition home or self-care (01) ==
PROVIDERS: Registered Nurse; Emergency Provider Emergency Medicine; PCP Nurse Practitioner Family
DX: N39.0 Urinary tract infection, site not specified (principal); R07.89 Other chest pain; Z20.822 Contact with and (suspected) exposure to COVID-19; J45.909 Unspecified asthma, uncomplicated; E66.3 Overweight; Z68.29 Body mass index [BMI] 29.0-29.9, adult; K21.9 Gastro-esophageal reflux disease without esophagitis; F41.9 Anxiety disorder, unspecified; F32.A Depression, unspecified; Z86.2 Personal history of diseases of the blood and blood-forming organs and certain disorders involving the immune mechanism; Z87.442 Personal history of urinary calculi; Z87.01 Personal history of pneumonia (recurrent); Z87.891 Personal history of nicotine dependence; R00.0 Tachycardia, unspecified; R94.31 Abnormal electrocardiogram [ECG] [EKG]
CPT/HCPCS: 36415; 71046; 80053; 81001; 81025; 83690; 84484; 85025; 85610; 85730; 87086; 87637; 93005; 99284; A9270

== ENCOUNTER 2023-11-07 09:09 | Outpatient (CLI) | payer OTHER, SELFPAY ==
[2023-11-07 10:05] LABS: Beta HCG Quantitative < 2.39 mIU/ML
== END 2023-11-07 09:10 | disposition home or self-care (01) ==
LOC: ANHLAB 09:11
PROVIDERS: PCP Nurse Practitioner Family; Visit Provider Obstetrics & Gynecology
DX: N92.6 Irregular menstruation, unspecified (principal)
CPT/HCPCS: 36415; 84702

== ENCOUNTER 2023-11-21 10:35 | Outpatient (CLI) | payer OTHER, SELFPAY ==
--- NOTE | ~2023-11-21 | US_ITS ---
EXAMINATION: US pelvic complete w TV DATE: 11/21/2023 11:26 INDICATION: Abnormal uterine and vaginal bleeding. TECHNIQUE: Multiple transabdominal and transvaginal sonographic images of the pelvis were obtained. COMPARISON: CT abdomen and pelvis 09/29/2023 FINDINGS: TRANSABDOMINAL ULTRASOUND: The uterus measures 7.8 x 3.3 x 4.9 cm. There is physiologic free fluid in the pelvis. TRANSVAGINAL ULTRASOUND: The endometrial complex measures 12 mm in thickness. The right ovary measures 1.9 x 1.1 x 2.3 cm. The left ovary measures 2.6 x 1.9 x 2.8 cm. There is normal vascular flow in the ovaries. IMPRESSION: 1. Normal pelvis. Reviewed, dictated and finalized at location A. IMPRESSION: 1. Normal pelvis.
== END 2023-11-21 10:36 | disposition home or self-care (01) ==
LOC: ANHIMG 10:37
PROVIDERS: PCP Nurse Practitioner Family; Visit Provider Obstetrics & Gynecology
DX: N93.9 Abnormal uterine and vaginal bleeding, unspecified (principal)
CPT/HCPCS: 76830; 76856

== ENCOUNTER 2023-11-29 10:38 | Outpatient (CLI) | payer OTHER, SELFPAY ==
[2023-11-29 12:08] LABS: HIV 1/2 Ab P24 Ag Result Negative (Negative)
[2023-11-29 12:19] LABS: Hepatitis B Surface Antigen Negative (Negative)
[2023-11-29 12:24] LABS: HAV RESULT Negative (Negative); Hepatitis B Core IgM Result Negative (Negative)
[2023-11-29 12:36] LABS: Hepatitis C Virus Antibody Negative (Negative)
[2023-11-30 10:51] LABS: Rapid Plasma Reagin Non-Reactive (NonReactive)
== END 2023-11-29 10:39 | disposition home or self-care (01) ==
LOC: ANHLAB 10:40
PROVIDERS: PCP Nurse Practitioner Family; Visit Provider Student in an Organized Health Care Education/Training Program
DX: Z11.3 Encounter for screening for infections with a predominantly sexual mode of transmission (principal)
CPT/HCPCS: 36415; 80074; 86592; 86695; 86696; 86703; G0432

== ENCOUNTER 2024-03-25 08:14 | Emergency (ER) | payer OTHER, SELFPAY ==
[2024-03-25] VITALS (11 sets, daily range): BP systolic 111–139; BP diastolic 88–95; PULSE 100–126; RESP 15–24; TEMP 36.6; O2SAT 99–100
[2024-03-25 08:26] LABS: BEDSIDEPREGUCG Negative (Negative)
[2024-03-25 08:34] LABS: Basophils Absolute Auto 0.1 K/mm3 (0.0-0.1); Basophils Percent Auto 0.4 % (0.2-1.2); Eosinophils Absolute Auto 0.2 K/mm3 (0-0.3); Eosinophils Percent Auto 1.5 % (0-4.4); Hematocrit 43.5 % (37.0-47.0); Hemoglobin 13.6 g/dL (12.0-15.0); Immature Granulocyte Absolute 0.05 K/mm3 (0.00-0.031); Immature Granulocyte Percent A 0.4 % (0-0.5); Lymphocytes Percent Auto 45.4 % (18.3-44.2); Mean Corpuscular HGB Conc 31.3 g/dl (32-36); Mean Corpuscular Hemoglobin 25.7 pg (26-34); Mean Corpuscular Volume 82.1 fl (80-100); Monocytes Absolute Auto 0.7 K/mm3 (0.1-0.6); Monocytes Percent Auto 5.3 % (2.6-8.5); Neutrophils Absolute Auto 6.1 K/mm3 (1.3-6.7); Platelet Count Result 303 k/mm3 (150-375); Red Cell Distribution Width 13.1 % (11.5-14.5)
--- NOTE | 2024-03-25 08:39 | ED_ITS ---
HPI - General Adult General Chief complaint: Urogenital-Female Stated complaint: L flank pain, pain and buring with urination Time Seen by Provider: 03/25/24 08:21 History of Present Illness HPI narrative: 28-year-old female presenting to the emergency department for evaluation for burning with urination and some left flank pain. Patient suspects she has a urinary tract infection. Patient did start taking some old cephalexin that she had in her refrigerator, patient feels that she is still having worsening symptoms she present to the emergency department for evaluation. Patient was also concerned that she has BV, patient was going to have follow-up with her OB Gyne today for this. Related Data Home Medications ?Medication ?Instructions ?Recorded ?Confirmed ?Last Taken ?Type albuterol sulfate 90 mcg/actuation inhalation 07/22/20 01/16/24 Unknown History aerosol inhaler (ProAir HFA) sertraline 50 mg tablet (Zoloft) 50 mg PO DAILY 06/18/23 03/25/24 Unknown History buspirone 10 mg tablet 10 mg PO 11/27/23 01/16/24 Unknown History Allergies Allergy/AdvReac Type Severity Reaction Status Date / Time escitalopram (From Lexapro) Allergy Severe Hives Verified 03/25/24 08:15 amoxicillin Allergy Mild Rash Verified 03/25/24 08:15 Iodinated Contrast Media Allergy Mild Rash Verified 03/25/24 08:15 aspirin Allergy Swelling Verified 03/25/24 08:15 of Lip/Tongue/Throat clindamycin Allergy Itching Verified 03/25/24 08:15 ibuprofen Allergy Swelling Verified 03/25/24 08:15 of Lip/Tongue/Throat latex Allergy Itching Verified 03/25/24 08:15 seafood AdvReac Mild Hives Uncoded 03/25/24 08:15 Review of Systems 2 Review of Systems: All systems reviewed & are unremarkable except as noted in HPI and below PMFSH Past Medical History Medical History Anemia Anxiety Asthma Breast lump or mass Depression Encounter for screening examination for sexually transmitted disease GERD (gastroesophageal reflux disease) Headache History of kidney stones Initiation of Depo Provera Migraines Nipple discharge in antepartum period Overweight (BMI 25.0-29.9) Pneumonia Surveillance for Depo-Provera contraception Urinary tract infection Surgical History Surgical History No history of previous surgery Family History Family History Mother Cancer Grandparent Diabetes mellitus paternal grandmother Hypertension paternal grandmother Other Seizure daughter Social History Social History (Updated 01/16/24 @ 09:22 by Eleanor Duran CMA) Smoking status: Former smoker Tobacco type: cigarettes Second hand tobacco smoke exposure: No Smoking end date: 05/04/23 Alcohol intake: former Alcohol use details: once a month-wine coolers Substance use: never Substance use type: does not use Do You Feel Safe in your Home?: Yes Lack of Transportation: No Lack of Food: Sometimes True Current Housing: I Have Housing Concerned About Future Housing: No Difficulty Paying Gas/Electric Bills: No Difficulty Paying for Meds: No Currently Unemployed: No Education: High School Diploma/GED Difficulty w/ Childcare or Family Care: No Living arrangements: other Additional living arrangements comments: lives with grandmother Occupation/Education: unemployed 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 HEAD: normocephalic, atraumatic. EYES: PERRLA/EOMI, conjunctivae clear. NOSE: Normal no drainage EARS:TMS clear with good light reflex. THROAT: Pharynx clear, no exudate. NECK: Supple. No adenopathy, no masses. RESPIRATORY: Airway patent, respirations nonlabored. Clear to auscultation bilaterally, no rales, rhonchi, wheezing. CARDIOVASCULAR: Regular rate and rhythm without murmurs rubs or gallops. ABDOMINAL: Left CVA tenderness with suprapubic tenderness to palpation MUSCULOSKELETAL: Moves all extremities. Strength/ROM intact, No edema, No calf tenderness. NEURO: Alert. Cranial nerves II through XII intact. Grossly intact SKIN: Warm, dry. Normal Color Course Vital Signs Vital signs: Vital Signs Temperature 97.8 F 03/25/24 08:22 Pulse Rate 126 H 03/25/24 08:22 Respiratory Rate 18 03/25/24 08:22 Blood Pressure 139/91 H 03/25/24 08:22 Pulse Oximetry 100 03/25/24 08:22 Oxygen Delivery Room Air 03/25/24 08:22 Temperature 97.8 F 03/25/24 08:22 Pulse Rate 100 03/25/24 10:35 Respiratory Rate 16 03/25/24 10:35 Blood Pressure 111/88 03/25/24 10:35 Pulse Oximetry 99 03/25/24 10:35 Oxygen Delivery Room Air 03/25/24 08:22 Medical Decision Making MDM Narrative Medical decision making narrative: 28-year-old female presented emergency department for evaluation for urinary symptoms. Patient does have a leukocytosis of 13 with a hemoglobin of 13.6. No significant abnormalities on the patient's CMP urine was positive for leukocyte esterase high white blood cells and +4 bacteria. No red blood cells. Low concern for ureteral calculi. Patient did feel that she was having a urinary tract infection and the workup does support this. Patient had been taking Keflex at home without improvement. Patient will be switched to Bactrim. First dose of Bactrim was given in the emergency department. Patient will also be provided Pyridium. Patient was updated the results of her workup patient was comfortable with plan for discharge and close follow-up. Differential Diagnosis Differential Diagnosis: Ureteral calculi, kidney stone, urinary tract infection Vital Signs Vital Signs: Vital Signs Temperature 97.8 F 03/25/24 08:22 Pulse Rate 126 H 03/25/24 08:22 Respiratory Rate 18 03/25/24 08:22 Blood Pressure 139/91 H 03/25/24 08:22 Pulse Oximetry 100 03/25/24 08:22 Oxygen Delivery Room Air 03/25/24 08:22 Temperature 97.8 F 03/25/24 08:22 Pulse Rate 100 03/25/24 10:35 Respiratory Rate 16 03/25/24 10:35 Blood Pressure 111/88 03/25/24 10:35 Pulse Oximetry 99 03/25/24 10:35 Oxygen Delivery Room Air 03/25/24 08:22 Lab Data Lab results reviewed: Yes I reviewed the patient's lab results. 03/25/24 08:29 03/25/24 08:29 Labs: Lab Results 03/25/24 03/25/24 03/25/24 Range/Units 08:24 08:29 08:50 WBC 13.0 H (4.5-10.0) K/mm3 RBC 5.30 (4.2-5.4) M/mm3 Hgb 13.6 (12.0-15.0) g/dL Hct 43.5 (37.0-47.0) % MCV 82.1 (80-100) fl MCH 25.7 L (26-34) pg MCHC 31.3 L (32-36) g/dl RDW 13.1 (11.5-14.5) % Plt Count 303 D (150-375) k/mm3 MPV 9.0 (7.4-10.4) fl Immature Gran % (Auto) 0.4 (0-0.5) % Neut % (Auto) 47.0 (45.5-73.1) % Lymph % (Auto) 45.4 H (18.3-44.2) % [place] % (Auto) 5.3 (2.6-8.5) % Eos % (Auto) 1.5 (0-4.4) % Baso % (Auto) 0.4 (0.2-1.2) % Lymph # (Auto) 5.90 H (0.9-3.2) K/mm3 [place] # (Auto) 0.7 H (0.1-0.6) K/mm3 Eos # (Auto) 0.2 (0-0.3) K/mm3 Baso # (Auto) 0.1 (0.0-0.1) K/mm3 Abs Immat Gran (auto) 0.05 H (0.00-0.031) K/mm3 Absolute Neuts (auto) 6.1 (1.3-6.7) K/mm3 Absolute Nucleated RBC 0.000 (0.0-0.012) K/mm3 Nucleated RBC % 0.0 (0.0-0.2) % Atypical Lymphocytes Present Platelet Estimate Adequate (Adequate) Schistocytes None seen Sodium 138 (137-145) mmol/L Potassium 3.3 L (3.4-5.0) mmol/L Chloride 103 (98-107) mmol/L Carbon Dioxide 25 (22-30) mmol/L Anion Gap 10 (4-12) mmol/L BUN 9 (7-17) mg/dL Creatinine 0.57 L (0.7-1.0) mg/dL Estim Creat Clear Calc 116 ml/min Estimated GFR > 60 (59 - ) Glucose 94 (65-110) mg/dL Calcium 9.1 (8.4-10.2) mg/dL Total Bilirubin 0.7 (0.2-1.3) mg/dL AST 32 (14-36) U/L ALT 46 H (6-35) U/L Alkaline Phosphatase 83 (38-126) U/L Total Protein 8.0 (6.3-8.2) g/dL Albumin 4.4 (3.5-5.1) g/dL Urine Color Yellow (Yellow) Urine Appearance Turbid H (Clear) Urine pH 6.0 (5.0-9.0) Ur Specific [place] 1.010 (1.001-1.035) Urine Protein Negative (Negative) mg/dL Urine Glucose (UA) Negative (Negative) mg/dL Urine Ketones Negative (Negative) mg/dL Ur Blood (Man) Negative (Negative) Urine Nitrate Negative (Negative) Urine Bilirubin Negative (Negative) Urine Urobilinogen 0.2 (<2.0) mg/dL Add Ur Microanalysis Reviewed Leukocyte Esterase Rfl 2+ H (Negative) LOTTIE/UL Urine RBC 0-2 (0-2) /hpf Urine WBC 21-50 H (0-3) /hpf Ur Squamous Epith Cells Many H (Few) /hpf Urine Bacteria 4+ H /hpf Urine Casts 3-5 POC Urine HCG, Qual Negative (Negative) Bact Vaginosis Panel Pending Discharge Plan Discharge Clinical Impression: Urinary tract infection Patient Disposition: Home, Self-Care Condition: Stable Instructions: Antibiotic Form, Urinary Tract Infection in Women (ED) Additional Instructions: Drink plenty of water. Antibiotic as directed until completed. Pyridium as needed for urinary symptoms. Have close follow-up with your primary care physician. Your bacterial vaginosis swab is a send out and will not be resulted. Patient Language: Faroese Prescriptions: New phenazopyridine [Pyridium] 100 mg tablet 100 mg PO TID PRN (Reason: pain) Qty: 6 0RF sulfamethoxazole-trimethoprim [Bactrim DS] 800-160 mg tablet 1 tablet PO Q12H 7 Days Qty: 14 0RF No Action buspirone 10 mg tablet 10 mg PO sertraline [Zoloft] 50 mg tablet 50 mg PO DAILY albuterol sulfate [ProAir HFA] 90 mcg/actuation HFA aerosol inhaler INHALATION Follow-up/Referrals: Gildardo,Vel Joy APRN [Primary Care Provider] -
[2024-03-25 08:46] LABS: Alanine Aminotransferase 46 U/L (6-35); Albumin Level 4.4 g/dL (3.5-5.1); Alkaline Phosphatase 83 U/L (38-126); Anion Gap 10 mmol/L (4-12); Aspartate Amino Transferase 32 U/L (14-36); Bilirubin,Total 0.7 mg/dL (0.2-1.3); Blood Urea Nitrogen 9 mg/dL (7-17); Calcium 9.1 mg/dL (8.4-10.2); Carbon Dioxide 25 mmol/L (22-30); Chloride 103 mmol/L (98-107); Estimated CRCL calculation 116 ml/min; Estimated Glomerular Filt Rate > 60; Glucose 94 mg/dL (65-110); Potassium 3.3 mmol/L (3.4-5.0); Sodium 138 mmol/L (137-145)
[2024-03-25 08:51] LABS: Add Urine Microscopic? YES; Appearance Urine Turbid (Clear); Bacteria Urine 4+ /hpf; Bilirubin Urine Negative (Negative); Blood Urine Negative (Negative); Color Urine Yellow (Yellow); Glucose Urine UA Negative (Negative); Ketones Urine Negative (Negative); Leukocyte Esterase Ur 2+ LEU/UL (Negative); Need Manual Microscopic Reviewed; Nitrate Urine Negative (Negative); Protein Urine Negative (Negative); RBC Urine 0-2 /hpf (0-2); Squamous Epithelial Cell Urine Many /hpf (Few); Urobilinogen Urine 0.2 mg/dL (<2.0); WBC Urine 21-50 /hpf (0-3)
[2024-03-25 08:55] LABS: Platelet Estimate Adequate (Adequate)
[2024-03-25 08:56] LABS: Atypical Lymphocytes Present; Schistocytes None Seen
[2024-03-26 03:23] LABS: Bacterial Vaginosis POSITIVE (NEGATIVE)
--- OUTSIDE RECORDS SUMMARY | 2024-03-27 16:02 | XMS_ITS | Clinical Summary ---
Author Organization [facility] Address [address] [place] [address] Care Team Providers Care Multi Township Assessor Name Role Phone Koko Rodriguez MD Primary Care Provider [phone] Source Comments [facility],non-owned Affiliates and Associated Physician Practices is amultiple site organization consisting of ambulatory clinics and hospital sitesin [place], [place], [place]. This disclosure is being madepursuant to the Care Everywhere program and may not contain all information available regarding this patient. Last updated 17.[facility] Encounters Date Type Department Care Team Description 03/24/2024 Travel 03/03/2024 2:30 PM MARKETING PROJECT SPECIALIST - 03/03/2024 11:59 PM MARKETING PROJECT SPECIALIST Hospital Encounter [address] [address] Koko Rodriguez MD Discharge Disposition: Home or Self Care 03/03/2024 2:23 PM MARKETING PROJECT SPECIALIST - 03/03/2024 2:29 PM MARKETING PROJECT SPECIALIST Hospital Encounter [address] [address] Koko Rodriguez MD Discharge Disposition: Home or Self Care 01/30/2024 Travel from Last 3 Months Family History Medical History Relation Name Comments Cancer - Breast Paternal Grandfather Cancer - Breast Paternal Grandmother Relation Name Status Comments Paternal Grandfather Alive Paternal Grandmother Social History Tobacco Use Types Packs/Day Years Used Date Smoking Tobacco: Never Assessed Sex and Gender Information Value Date Recorded Sex Assigned at Female 03/04/2024 6:36 AM MARKETING PROJECT SPECIALIST Gender Identity Female 03/04/2024 6:36 AM MARKETING PROJECT SPECIALIST Sexual Orientation Bisexual 03/04/2024 6: 36 AM MARKETING PROJECT SPECIALIST Plan of Treatment Upcoming Encounters Date Type Department Care Team (Late st Contact Info) Description 06/12/2024 10:00 AM CDT [facility] [address] [place] [address] Daria Parmar MD [address] [facility] [address] [place] [address] Health Maintenance Due Date Last Done Comments PAP SMEAR 1994 HIV SCREENING 2009 HEPATITIS C SCREENING 09/01/2012 DTAP/TDAP/TD VACCINES (1 - Tdap) 2013 HEPATITIS B VACCINE (1 of 3 - 19+ 3-dose series) 2013 COVID-19 VACCINE (1 - 2023-2 5 season) 2023 INFLUENZA VACCINE (#1) 2023 12/26/2017 DEPRESSION SCREENING 03/05/2024 ZOSTER VACCINE (1 of 2) 2044 HIB VACCINE Aged Out No longer eligi ble based on patient's age to complete this topic HPV VACCINE Aged Out No longer eligi ble based on patient's age to complete this topic MENINGOCOCCAL (Group B) VACCINE Aged Out No longer eligible based on patient's age to complete this topic MENINGOCOCCAL VACCINE Aged Out No razia ernesto eligible based on patient's age to complete this topic PNEUMOCOCCAL VACCINE Aged Out No long er eligible based on patient's age to complete this topic Procedures Procedure Name Priority Date/Time Associated Diagnosis Comments US BREAST LEFT LTD Routine 03/03/2024 3: 50 PM MARKETING PROJECT SPECIALIST Lump in female breast MAMMO BILAT DIAGNOSTIC W HUDSON Routine 03/03/2024 2:57 PM MARKETING PROJECT SPECIALIST Breast lump in female from Last 3 Months Results * US Breast Left Ltd (03/03/2024 3:50 PM MARKETING PROJECT SPECIALIST) Anatomical Region Laterality Modality Breast Left Mammography 03/03/2024 2:56 PM MARKETING PROJECT SPECIALIST Impressions 03/03/2024 3:54 PM MARKETING PROJECT SPECIALIST IMPRESSION: No bilateral mammographic or targeted left breast sonographic evidence of malignancy. RECOMMENDATION: ??Pending no interval breast concerns, screening mammogram is is recommended starting from the age of [address]. Dr[address] Bolanos discussed the examination findings and recommendations with the patient at the time of the examination. Patient will also receive the exam results by lay letter. OVERALL ASSESSMENT: ??BI-RADS CATEGORY 1: NEGATIVE. Report drafted by Maddie Rahman MD (senior vice president). I, Essence Bolanos MD, FACR have personally reviewed and interpreted this examination/study. > Interpreting Provider: Essence Bolanos MD, FACR on 03/03/2024 3:54 PM Narrative 03/03/2024 3:54 PM MARKETING PROJECT SPECIALIST EXAMINATIONS: 1. ??BILATERAL DIGITAL DIAGNOSTIC MAMMOGRAM AND TOMOSYNTHESIS AND 2. ??LIMITED LEFT BREAST ULTRASOUND (COMBINED REPORT) LOCATION: [facility] EXAM DATE: ??03/03/2024 HISTORY: Recently fell left breast lump that has been approximately 3 months ago which is since resolved. There is intermittent burning pain in left breast from axilla to nipple. Of note, patient states she was on hormone/burst control for approximately 7 years and stopped one year ago. Patient has an 8-year-old child. Family history of breast cancer in paternal grandmother. RISK ASSESSMENT CALCULATION: Patient completed a breast cancer risk assessment during her appointment 03/03/2024. ??Based upon the information she provided and her mammographic breast density, her lifetime risk of developing breast cancer is ??17 % (Average Risk <15%; Intermediate / Moderate Risk 15-19; High Risk > 20%). Risk assessment based upon the BRCAPRO model. COMPARISON: Prior mammogram dated 01/26/2020 performed at [facility]. MAMMOGRAM: TECHNIQUE: Diagnostic bilateral mammography was performed. Tomosynthesis (3-D) and reconstructed synthetic 2-D images acquired. Bilateral CC and MLO, left CC rolled medial, left CC rolled lateral, left true lateral views are obtained. A total of 7 images were obtained. Transpara AI was utilized in the interpretation of this exam. Triangular-shaped marker placed on a palpable abnormality in the left breast. ?? BREAST COMPOSITION: Category B: There are scattered areas of fibroglandular density. FINDINGS: ??There are no suspicious finding or mammographic evidence of malignancy. Other than symmetric bilateral increased parenchymal tissue, there is no significant change from the prior study. LIMITED LEFT BREAST ULTRASOUND: ? Scanning performed from the 1 to the ??[address] Bolanos also scanned the patient FINDINGS: The targeted exam is normal. No suspicious finding or evidence of malignancy. Normal breast parenchyma. Tal Redding MD US ORDERABLES * Mammo Bilat Diagnostic W [place] (03/03/2024 2:57 PM MARKETING PROJECT SPECIALIST) Anatomical Region Laterality Modality Breast Bilateral Mammography 03/03/2024 2:56 PM MARKETING PROJECT SPECIALIST Impressions 03/03/2024 3:54 PM MARKETING PROJECT SPECIALIST IMPRESSION: No bilateral mammographic or targeted left breast sonographic evidence of malignancy. RECOMMENDATION: ??Pending no interval breast concerns, screening mammogram is is recommended starting from the age of 39. Dr[address] Bolanos discussed the examination findings and recommendations with the patient at the time of the examination. Patient will also receive the exam results by lay letter. OVERALL ASSESSMENT: ??BI-RADS CATEGORY 1: NEGATIVE. Report drafted by Maddie Rahman MD (senior vice president). I, Essence Bolanos MD, FACR have personally reviewed and interpreted this examination/study. > Interpreting Provider: Essence Bolanos MD, FACR on 03/03/2024 3:54 PM Narrative 03/03/2024 3:54 PM MARKETING PROJECT SPECIALIST EXAMINATIONS: 1. ??BILATERAL DIGITAL DIAGNOSTIC MAMMOGRAM AND TOMOSYNTHESIS AND 2. ??LIMITED LEFT BREAST ULTRASOUND (COMBINED REPORT) LOCATION: [facility] EXAM DATE: ??03/03/2024 HISTORY: Recently fell left breast lump that has been approximately 3 months ago which is since resolved. There is intermittent burning pain in left breast from axilla to nipple. Of note, patient states she was on hormone/burst control for approximately 7 years and stopped one year ago. Patient has an 8-year-old child. Family history of breast cancer in paternal grandmother. RISK ASSESSMENT CALCULATION: Patient completed a breast cancer risk assessment during her appointment 03/03/2024. ??Based upon the information she provided and her mammographic breast density, her lifetime risk of developing breast cancer is ??17 % (Average Risk <15%; Intermediate / Moderate Risk 15-19; High Risk > 20%). Risk assessment based upon the BRCAPRO model. COMPARISON: Prior mammogram dated 01/26/2020 performed at [facility]. MAMMOGRAM: TECHNIQUE: Diagnostic bilateral mammography was performed. Tomosynthesis (3-D) and reconstructed synthetic 2-D images acquired. Bilateral CC and MLO, left CC rolled medial, left CC rolled lateral, left true lateral views are obtained. A total of 7 images were obtained. Transpara AI was utilized in the interpretation of this exam. Triangular-shaped marker placed on a palpable abnormality in the left breast. ?? BREAST COMPOSITION: Category B: There are scattered areas of fibroglandular density. FINDINGS: ??There are no suspicious finding or mammographic evidence of malignancy. Other than symmetric bilateral increased parenchymal tissue, there is no significant change from the prior study. LIMITED LEFT BREAST ULTRASOUND: ? Scanning performed from the 1 to the ??[address] Bolanos also scanned the patient FINDINGS: The targeted exam is normal. No suspicious finding or evidence of malignancy. Normal breast parenchyma. Tal Redding MD MAMMO ORDERABLES from Last 3 Months Care Teams Multi Township Assessor Relationship Specialty Start Date End Date Koko Rodriguez MD [address] [facility] [address] [place] [address] PCP - General Obstetrics and Gynecology 01/30/24
--- OUTSIDE RECORDS SUMMARY | 2024-03-27 16:02 | XMS_ITS | Encounter Summary ---
Author Organization [facility] Address [address] [place] [address] Care Team Providers Care Flitch Hanger Name Role Phone Koko Rodriguez MD Primary Care Provider [phone] Encounter Details Date Type Department Care Team (Latest Contact Info) Description 03/24/2024 Travel Social History Tobacco Use Types Packs/Day Years Used Date Smoking Tobacco: Never Assessed Sex and Gender Information Value Date Recorded Sex Assigned at Female 03/04/2024 6:36 AM SUPERVISOR WHITE SUGAR Gender Identity Female 03/04/2024 6:36 AM SUPERVISOR WHITE SUGAR Sexual Orientation Bisexual 03/04/2024 6: 36 AM SUPERVISOR WHITE SUGAR documented as of this encounter Plan of Treatment Upcoming Encounters Date Type Department Care Team (Late st Contact Info) Description 06/12/2024 10:00 AM CDT Office Visit [facility] - General Surgery [address] [place] [id number] Daria Parmar MD [address] [facility] [address] [place] [phone] documented as of this encounter Visit Diagnoses Not on filedocumented in this encounter Care Teams Flitch Hanger Relationship Specialty Start Date End Date Koko Rodriguez MD [address] [facility] [address] [place] [id number] PCP - General Obstetrics and Gynecology 01/30/24 documented as of this encounter
--- OUTSIDE RECORDS SUMMARY | 2024-03-27 16:02 | XMS_ITS | Referral Summary ---
Author Organization [facility] Address [address] [place] [address] Care Team Providers Care Etl Database Developer Name Role Phone Koko Rodriguez MD Primary Care Provider [phone] Source Comments [facility],non-owned Affiliates and Associated Physician Practices is amultiple site organization consisting of ambulatory clinics and hospital sitesin [place], [place], [place] and [place]. This disclosure is being madepursuant to the Care Everywhere program and may not contain all information available regarding this patient. Last updated 17.[facility] Encounters Date Type Department Care Team Description 03/24/2024 Travel 03/03/2024 2:23 PM SILK SCREEN PRINTER MACHINE - 03/03/2024 2:29 PM SILK SCREEN PRINTER MACHINE Hospital Encounter [address] [address] Koko Rodriguez MD Discharge Disposition: Home or Self Care 03/03/2024 2:30 PM SILK SCREEN PRINTER MACHINE - 03/03/2024 11:59 PM SILK SCREEN PRINTER MACHINE Hospital Encounter [address] [address] Koko Rodriguez MD Discharge Disposition: Home or Self Care 01/30/2024 Travel from Last 3 Months Social History Tobacco Use Types Packs/Day Years Used Date Smoking Tobacco: Never Assessed Sex and Gender Information Value Date Recorded Sex Assigned at Female 03/04/2024 6:36 AM SILK SCREEN PRINTER MACHINE Gender Identity Female 03/04/2024 6:36 AM SILK SCREEN PRINTER MACHINE Sexual Orientation Bisexual 03/04/2024 6: 36 AM SILK SCREEN PRINTER MACHINE Plan of Treatment Upcoming Encounters Date Type Department Care Team (Late st [facility] Info) Description 06/12/2024 10:00 AM CDT Office Visit [facility] - General Surgery [address] [place] [id number] Daria Parmar MD [address] [facility] [address] [place] [address] Procedures Procedure Name Priority Date/Time Associated Diagnosis Comments US BREAST LEFT LTD Routine 03/03/2024 3: 50 PM SILK SCREEN PRINTER MACHINE Lump in female breast MAMMO BILAT DIAGNOSTIC W HUDSON Routine 03/03/2024 2:57 PM SILK SCREEN PRINTER MACHINE Breast lump in female from Last 3 Months Results * US Breast Left Ltd (03/03/2024 3:50 PM SILK SCREEN PRINTER MACHINE) Anatomical Region Laterality Modality Breast Left Mammography 03/03/2024 2:56 PM SILK SCREEN PRINTER MACHINE Impressions 03/03/2024 3:54 PM SILK SCREEN PRINTER MACHINE IMPRESSION: No bilateral mammographic or targeted left [...] NEGATIVE. Report drafted by Maddie Rahman MD (vice president investor relations). I, Essence Bolanos MD, FACR have personally reviewed and interpreted this examination/study. > Interpreting Provider: Essence Bolanos MD, FACR on 03/03/2024 3:54 PM Narrative 03/03/2024 3:54 PM SILK SCREEN PRINTER MACHINE EXAMINATIONS: 1. ??BILATERAL DIGITAL DIAGNOSTIC MAMMOGRAM AND TOMOSYNTHESIS AND 2. ??LIMITED LEFT BREAST ULTRASOUND (COMBINED REPORT) LOCATION: [facility] EXAM DATE: ??03/03/2024 HISTORY: Recently fell left [...] COMPARISON: Prior mammogram dated 01/26/2020 performed at [facility]. MAMMOGRAM: TECHNIQUE: Diagnostic bilateral mammography was [...] Bilat Diagnostic W [place] (03/03/2024 2:57 PM SILK SCREEN PRINTER MACHINE) Anatomical Region Laterality Modality Breast Bilateral Mammography 03/03/2024 2:56 PM SILK SCREEN PRINTER MACHINE Impressions 03/03/2024 3:54 PM SILK SCREEN PRINTER MACHINE IMPRESSION: No bilateral mammographic or targeted left [...] NEGATIVE. Report drafted by Maddie Rahman MD (vice president investor relations). IEssence MD, FACR have personally reviewed and interpreted this examination/study. > Interpreting Provider: Essence Bolanos MD, FACR on 03/03/2024 3:54 PM Narrative 03/03/2024 3:54 PM SILK SCREEN PRINTER MACHINE EXAMINATIONS: 1. ??BILATERAL DIGITAL DIAGNOSTIC MAMMOGRAM AND TOMOSYNTHESIS AND 2. ??LIMITED LEFT BREAST ULTRASOUND (COMBINED REPORT) LOCATION: [facility] EXAM DATE: ??03/03/2024 HISTORY: Recently fell left [...] COMPARISON: Prior mammogram dated 01/26/2020 performed at [facility]. MAMMOGRAM: TECHNIQUE: Diagnostic bilateral mammography was [...] ORDERABLES from Last 3 Months Care Teams Etl Database Developer Relationship Specialty Start Date End Date Koko Rodriguez MD [address] [facility] [address] [place] [address] PCP - General Obstetrics and Gynecology 01/30/24
--- OUTSIDE RECORDS SUMMARY | 2024-03-27 16:02 | XMS_ITS | Clinical Summary ---
Author Organization [facility] Address [address] [place] [address] Phone Care Team Providers Care Mixologist Name Role Phone Rosy Brannon CLAIM EXAMINER, [facility] Primary Care Provider Allergies Active Allergy Reactions Criticality Noted Date Comments Amoxicillin Unknown 07/10/2017 Medications medroxyPROGESTER one (DEPO-PROVERA) 150 MG/ML Suspension ADM 1 ML IM Q 3 MONTHS 3 04/25/2017 Active PROAIR HFA 108 (90 Base) MCG/ACT Aerosol Solution 06/08/2017 Active Social History Tobacco Use Types Packs/Day Years Used Date Smoking Tobacco: Former Alcohol Use Standard Drinks/Week Comments Yes 0 (1 standard drink = 0.6 oz pur e alcohol) socially Comments Unknown Sex and Gender Information Value Date Recorded Sex Assigned at Not on file Legal Sex Female 1:57 PM CONVEX GRINDER Gender Identity Not on file Sexual Orientation Not on file Last Filed Vital Signs Vital Sign Reading Time Taken Comments Blood Pressure 108/70 07/10/2017 10:33 AM CDT Pulse 82 07/10/2017 10:33 AM CDT Temperature - - Respiratory Rate 18 07/10/2017 10:33 AM CDT Oxygen Saturation 98% 07/10/2017 10:33 AM CDT Inhaled Oxygen Concentration - - Weight 52.2 kg (115 lb) 07/10/2017 10:33 AM CDT Height 157.5 cm (5' 2 ) 07/10/2017 10:33 AM CDT Body Mass Index 21.03 07/10/2017 10:33 AM CDT Plan of Treatment Health Maintenance Due Date Last Done Comments Hepatitis C Virus (HCV) Screening 1994 TdaP Immunization 1994 Hepatitis B Immunization (1 of 3 - 19+ 3-dose series) 2013 Pap Smear 09/07/2015 Influenza Immunization (#1) 2023 SARS-COV-2 Immunization (1 - 2023-25 season) 2023 Respiratory Syncytial Virus (RSV) Immunization (Adult) (1 - 1-dose 75+ series) 2069 Human Papillomavirus (HPV) Immunization Discontinued 06/25/2014 Meningococcal Immunization (ACWY) Aged Out No longer eligible based on patient's age to complete this topic Pneumococcal Immunization Combined Aged Out No longer eligible based on patient's age to complete this topic Rotavirus Immunization Aged Out No lo nger eligible based on patient's age to complete this topic Insurance MEDICAID [employer] Care Teams Mixologist Relationship Specialty Start Date End Date Rosy Brannon, CLAIM EXAMINER, OPEN HEAR[employer] F[employer]NA[employer] LABORER [address] [place] [address] PCP - General Certified Nurse Practitioner 07/10/17
--- OUTSIDE RECORDS SUMMARY | 2024-03-27 16:02 | XMS_ITS | Clinical Summary ---
Author Organization [facility] Address [address] [place] [address] Care Team Providers Care Produce Inspector Name Role Phone Unavailable Primary Care Provider Unavailabl e Allergies Active Allergy Reactions Criticality Noted Date Comments Amoxicillin Itching,Rash,Unknown Low 07/10/2017 Other reaction(s): Unknown Aspirin Itching Low 01/24/2022 Clindamycin Unknown 01/24/2022 Escitalopram Hives High 01/24/2022 Ibuprofen Itching Low 03/24/2020 Medications albuterol sulfate 90 mcg/Actuation inhaler Take 2 Puffs by inhalation. Active sertraline (ZOLOFT) 25 mg tablet every 24 hours. Acti ve busPIRone (BUSPAR) 10 mg tablet Take 10 mg by mouth 2 times daily. Active cephALEXin (KEFLEX) 250 mg/5 mL suspension cephalexin 250 mg/5 mL oral suspension SHAKE LIQUID AND TAKE 10 ML BY MOUTH EVERY 6 HOURS FOR 10 DAYS Active Active Problems No known active problems Family History Medical History Relation Name Comments No Known Problems Brother No Known Problems Father No Known Problems Mother Relation Name Status Comments Brother Alive Father Alive Mother Alive Social History Tobacco Use Types Packs/Day Years Used Date Smoking Tobacco: Former Cigarettes 1 1 0 03/05/2017 - 03/05/2018 Tobacco Cessation:Counseling Given: Not Answered Alcohol Use Standard Drinks/Week Comments Yes 0 (1 standard drink = 0.6 oz pur e alcohol) Occasionally Comments Unknown Sex and Gender Information Value Date Recorded Sex Assigned at Not on file Legal Sex Female 4:08 PM CDT Gender Identity Not on file Sexual Orientation Not on file Last Filed Vital Signs Vital Sign Reading Time Taken Comments Blood Pressure 128/88 08/13/2023 11:37 AM CDT Pulse 122 08/13/2023 11:37 AM CDT Temperature 36.3 ??C (97.4 ??F) 08/13/2023 11:37 AM C DT Respiratory Rate 14 08/13/2023 11:37 AM CDT Oxygen Saturation 97% 08/13/2023 11:37 AM CDT Inhaled Oxygen Concentration - - Weight 73.5 kg (162 lb) 08/13/2023 11:37 AM CDT Height 157.5 cm (5' 2 ) 01/24/2022 10:35 AM SALESPERSON TOY TRAINS AND ACCESSORIES Body Mass Index 29.63 01/24/2022 10:35 AM SALESPERSON TOY TRAINS AND ACCESSORIES Plan of Treatment Upcoming Encounters Date Type Department Care Team (Late st Contact Info) Description 08/13/2024 10:15 AM CDT Office Visit [facility] Oncology and Hematology [facility] [address] [facility] [address] [place] [address] John Morrow MD [address] [facility] [place] [address] Health Maintenance Due Date Last Done Comments PNEUMOCOCCAL VACCINE 0-64 YE ARS (1 of 2 - PCV) 2000 DTAP/TDAP/TD VACCINES (1 - Tdap) 2013 HEPATITIS B VACCINES (1 of 3 - 19+ 3-dose series) 2013 CERVICAL CANCER SCREENING 09/07/2015 INFLUENZA VACCINE (#1) 2023 12/26/2017 HPV VACCINES Aged Out No longer eligi ble based on patient's age to complete this topic Insurance [id number]
--- OUTSIDE RECORDS SUMMARY | 2024-03-27 16:02 | XMS_ITS | Data Portability ---
Author Organization [facility] [employer], Main Office Address [address] [place] [address] Assessment Encounter Date Assessment Date Assessment LastModified by Organization Details LastModified Time 06/14/2023 06/14/2023 The patient gave verbal consent using TelePhonic services and the consent is documented in the medical record prior to using the service. The patient has been informed of what a TeleMedicine visit is. Patient is located at home. Provider is located at office. Names and roles of persons in addition to the patient and provider participating in telemedicine services include none. The patient had a 5 minute TeleMedicine consultation via [employer] to discuss the following: Not available 06/14/2023 11:44:46 Plan of Treatment Reminders Order Date Submit Date Provider Last Modified By Organization Details Last Modified Time Details Appointments None recorded. Lab prolactin, serum 2022 [email or web address] [facility] (Lab), [address] [place], [address], 3 12:39:48 vitamin D, 25-hydroxy, total, serum 2023 024 [email or web address] [address] [facility] (Lab), [address] [place], [address], 4 14:09:44 vitamin B12 + folate, serum or blood 2023 024 [email or web address] [address] [facility] (Lab), [address] [place], [address], 14:10:03 CBC 2023 024 [email or web address] [address] [facility] (Lab), [address] [place], [address], 4 14:08:24 iron + TIBC + ferritin, serum 2023 024 [email or web address] [address] [facility] (Lab), [address] [place], [address], 4 14:08:44 test, urine [address] [facility] [address], [place], [address], 4 14:09:10 Referral psychiatris t referral - Please call patient to schedule an appointment . 2023 024 [email or web address] [facility], [address] [place] [address], [place], [address], 4 13:40:28 Procedures removal impacted cerumen using irrigation/ lavage (PROC) 2023 024 [email or web address] Not available 4 07:49:00 Surgeries None recorded. Imaging MRI, pituitary, w/wo contrast - *Please call pt to schedule* 2022 [email or web address] [place] [address], [address], [place], [address], 3 09:31:41 Medication Orders fluoxetine 40 mg capsule 2022 023 [email or web address] [facility], [address], [place], [place], [id number], 3 14:42:58 buspirone 10 mg tablet 2022 023 [facility]89167, [address], [place], [place], [id number], 3 10:49:13 ciprofloxac in 0.3 %-dexametha sone 0.1 % ear drops,suspe nsion 2023 024 [facility] #35931, [address], [place], [place], [id number], 4 11:19:22 sertraline 50 mg tablet 2023 024 [facility] #79146, [address], [place], [id number], 4 10:50:54 cephalexin 250 mg/5 mL oral suspension 2023 [facility] #89937, [address], [place], [id number], 4 11:46:54 Patient TargetsNo targets recorded. Patient Instructions Encounter Date Encounter Id Patient Instructions Last Modified By Organization Details Last Modified Time 06/14/2023 [id number] Due to the COVID-19 (Novel Coronavirus) pandemic, it is within this context (and with the understanding that this method of patient encounter is in the patient? s best interest as well as the health and safety of other patients and the public) that ? telehealth? is being provided for this patient encounter rather than a [id number] visit. This patient encounter is appropriate at this time. This patient has been advised of the potential risks and limitations of this mode of treatment (including, but not limited to, the absence of in-person examination) and has agreed to be treated in a remote fashion despite these risks. Any and all of the patient? s/patient? s family? s questions on this issue have been answered, and I have made no promises or guarantees to the patient. The patient has also been advised to contact this office for worsening conditions or problems, and seek emergency medical treatment and/or call 911 if the patient deems either necessary. HPI and/or vitals, if listed, were provided by the patient. Not available 06/14/2023 11:39:04 Reason for Referral Psychiatrist Referral for De pressive disorder anxiety/depression management Please call patient to schedule an appointment. Referring Physician: Vel Ewing, [facility], Encounter Date: 04/25/2023 Results Created Date Observation Date Name Description Value Unit Range Abnormal Flag Note LastModifiedBy Organization Detail LastModifiedTime 10/12/1910/11/2022 RPR SCREE N RPR NON-RE ACTIVE nonrea ctive Not Available [facility] (Lab) [address] [place], [address], 10/12/2022 00:49:19 10/12/1910/12/2022 HIV COMBO : HIV 1/2 AB,P2 4 AG HIV combo assay NON-RE ACTIVE nonrea ctive The HIV combo test scree ns for HIV-1 , HIV-2 , HIV p24 Ag, and HIV group O. Any react amilcar scree n resul t will be sent for PCR confi rmato ry testi ng. Not Available [facility] (Lab) [address] [place], [address], 10/12/2022 17:24:27 10/12/1910/12/2022 HIV COMBO : HIV 1/2 AB,P2 4 AG signal/cutof f 0.10 0.00-0 .99 Not Available [facility] (Lab) [address] [place], [address], 10/12/2022 17:24:27 10/12/1910/14/2022 CT, NG, TRICH VAG BY CHEPE chlamydia by CHEPE Negati ve negati ve Not Available [facility] (Lab) [address] [place], [address], 10/14/2022 11:12:35 10/12/19 23 10/14/2022 CT, NG, TRICH VAG BY CHEPE gonococcus by CHEPE Negati ve negati ve Not Available [facility] (Lab) [address] [place], [address], 10/14/2022 11:12:35 10/12/1910/14/2022 CT, NG, TRICH VAG BY CHEPE trichomonas vaginalis, CHEPE Positi ve negati ve abnormal Perfo rmed at: =[facility] [place] [address] , [place] [address] Lab Direc tor: Compa pratt MD, Phone : [phone] Not Available [facility] (Lab) [address] [place], [address], 10/14/2022 11:12:35 11/02/1911/03/2022 PROLA CTIN prolactin 26.3 NG/mL 4.8-23 .3 high Perfo rmed at: CB [facility] [address] [place] [address] Lab Direc tor: Jeffrey stanley PhD, Phone : [phone] Not Available [facility] (Lab) [address] [place], [address], 11/03/2022 09:13:17 02/03/2002/02/2023 urina lysis , dipst ick Leukocytes (reference range: negative yesi/??l) Trace Not Available [address], [address], 02/02/2023 09:58:26 02/03/2002/02/2023 urina lysis , dipst ick Nitrite (reference rage: negative mg/dl) negati ve Not Available [address], [place], [address], 02/02/2023 09:58:26 02/03/2002/02/2023 urina lysis , dipst ick Urobilinogen (reference range: 0.2-1 mg/dl) 0.2 Not Available s_[address], [place], [address], 02/02/2023 09:58:26 02/03/2002/02/2023 urina lysis , dipst ick Protein (reference range: negative mg/dl) Negati ve Not Available [address], [place], [address], 02/02/2023 09:58:26 02/03/20 23 02/02/2023 urina lysis , dipst ick pH (reference range: 5-7) 5.5 Not Available [address], [place], [address], 02/02/2023 09:58:26 02/03/2002/02/2023 urina lysis , dipst ick Blood (reference range: negative Luisito/??l) Non-He molyze d: Trace Not Available [address], [place], [address], 02/02/2023 09:58:26 02/03/2002/02/2023 urina lysis , dipst ick Specific [place] (reference range: 1.005-1.030) 1.030 Not Available [address], [place], [address], 02/02/2023 09:58:26 02/03/2002/02/2023 urina lysis , dipst ick Ketone (reference range: negative mg/dl) Negati ve Not Available [address], [place], [address], 02/02/2023 09:58:26 02/03/20 23 02/02/2023 urina lysis , dipst ick Bilirubin (reference range: negative mg/dl) Negati ve Not Available [address], [place], [address], 02/02/2023 09:58:26 02/03/20 23 02/02/2023 urina lysis , dipst ick Glucose (reference range: negative mg/dl) Negati ve Not Available [address], [place], [address], 02/02/2023 09:58:26 02/03/20 23 02/02/2023 urina lysis , dipst ick Appearance Cloudy Not Available [address], [place], [address], 02/02/2023 09:58:26 02/03/20 23 02/02/2023 urina lysis , dipst ick Color Dark Yellow Not Available [address], [place], [address], 02/02/2023 09:58:26 04/25/19 24 04/25/2023 pregn cyn test, urine HCG negati ve Not Available [address], [place], [address], 04/25/2023 10:32:02 04/25/19 24 04/25/2023 pregn cyn test, urine HCG Negati ve Not Available [address], [place], [address], 04/25/2023 10:32:02 05/03/19 24 05/03/2023 urina lysis , dipst ick Leukocytes (reference range: negative yesi/??l) Trace Not Available [address], [place], [address], 05/02/2023 14:01:54 05/03/19 24 05/03/2023 urina lysis , dipst ick Nitrite (reference rage: negative mg/dl) negati ve Not Available [address], [place], [address], 05/02/2023 14:01:54 05/03/19 24 05/03/2023 urina lysis , dipst ick Urobilinogen (reference range: 0.2-1 mg/dl) 0.2 Not Available [address], [place], [address], 05/02/2023 14:01:54 05/03/19 24 05/03/2023 urina lysis , dipst ick Protein (reference range: negative mg/dl) Negati ve Not Available [address], [place], [address], 05/02/2023 14:01:54 05/03/19 24 05/03/2023 urina lysis , dipst ick pH (reference range: 5-7) 5.5 Not Available [address], [place], [address], 05/02/2023 14:01:54 05/03/19 24 05/03/2023 urina lysis , dipst ick Blood (reference range: negative Luisito/??l) Non-He molyze d: Trace Not Available [address], [place], [address], 05/02/2023 14:01:54 05/03/19 24 05/03/2023 urina lysis , dipst ick Specific [place] (reference range: 1.005-1.030) 1.025 Not Available [address], [place], [address], 05/02/2023 14:01:54 05/03/19 24 05/03/2023 urina lysis , dipst ick Ketone (reference range: negative mg/dl) Negati ve Not Available [address], [place], [address], 05/02/2023 14:01:54 05/03/19 24 05/03/2023 urina lysis , dipst ick Bilirubin (reference range: negative mg/dl) Negati ve Not Available [address], [place], [address], 05/02/2023 14:01:54 05/03/19 24 05/03/2023 urina lysis , dipst ick Glucose (reference range: negative mg/dl) Negati ve Not Available [address], [place], [address], 05/02/2023 14:01:54 05/03/19 24 05/03/2023 urina lysis , dipst ick Appearance Cloudy Not Available [address], [place], [address], 05/02/2023 14:01:54 05/03/19 24 05/03/2023 urina lysis , dipst ick Color Yellow Not Available [address], [place], [address], 05/02/2023 14:01:54 07/11/19 24 07/12/2023 HCG, TOTAL , QN HCG, total, qn <5 mIU/m L normal Refer ence Range Nonpr egnan t or preme nopau geoffrey <5 Postm enopa usal <10 Value s from diffe rent assay metho ds may vary. The use of this assay to monit or or to diagn ose patie nts with cance r or any condi tion unrel ated to pregn cyn has not been clear ed or appro dustin by the FDA or the [facility] actur er of the assay . Not Available [facility] [address] [place], [address], 07/12/2023 07:15:02 01/27/20 23 01/26/2023 XR, chest No observ ation record ed. [email or web address] [address], [place], [address], 01/29/2023 14:15:13 02/09/20 23 02/08/2023 CT, abdom en + pelvi s, w/o contr ast No observ ation record ed. [address], [place], [address], 02/09/2023 11:51:44 03/29/19 24 03/29/2023 CT, abdom en + pelvi s, w/o contr ast No observ ation record ed. [email or web address] [address], [place], [address], 03/30/2023 09:02:04 03/29/19 24 03/29/2023 XR, chest No observ ation record ed. [email or web address] [address], [place], [address], 03/30/2023 09:02:15 09/29/19 24 09/29/2023 CT, abdom en + pelvi s, w/wo contr ast No observ ation record ed. [email or web address], [place], [address], 10/23/2023 19:00:30 10/15/19 24 10/15/2023 XR, chest , 2 view No observ ation record ed. [address], [place], [address], 12/13/2023 15:26:20 11/21/19 24 11/21/2023 US, pelvi s, compl ete No observ ation record ed. [email or web address] [address], [place], [address], 11/28/2023 11:12:16 Result Notes None recorded. Problems Name Problem SNOMED Code Status Onset Date Resolution Date Notes Provider Name and Address Organization Details Recorded Time Infection of tooth 706352404 Active 2022 MARTELL Marmolejo [address], [place], [address] , [employer] 3 09:18:28 Abnormal vaginal bleeding 335766518 Active 2022 VIPUL Jackson [address], [place], [address] , [employer] 3 22:03:45 Vaginitis 07546639 Active 2022 VIPUL Jackson [address], [place], [address] , [employer] 3 17:00:54 Anxiety 73566167 Active 2022 VIPUL Jackson [address], [place], [address] , [employer] 3 08:07:13 Mixed anxiety and depressive disorder 422689287 Active 2022 VIPUL Jackson [address], [place], [address] , [employer] 3 14:43:03 Acute mastitis 35621459 Active 2022 VIPUL Jackson [address], [place], [address] , [employer] 3 11:07:50 Candidiasi s of skin 56782470 Active 2022 VIPUL Jackson [address], [place], [address] , [employer] 3 14:56:56 Trichomona l vaginitis 345924688 Active 2022 VIPUL Jackson [address], [place], [address] , [place] [facility] 3 13:01:29 Discharge from nipple 81698189 Active 2022 VIPUL Jackson [address], [place], [address] , [place] [facility] 3 10:34:56 Hyperprola ctinemia 186970932 Active 2022 VIPUL Jackson [address], [place], [address] , [place] [facility] 3 10:37:45 Pain of right elbow joint 2667162447737 9109 Active 2022 Yohana Alberto MD [address], [place], [address] , [place] [facility] 3 18:08:49 Tooth disorder 266914520 Active 2022 VIPUL Jackson [address], [place], [address] , [place] [facility] 3 11:51:49 Mastodynia of bilateral breasts 9598319955949 9109 Active 2022 Yohana Alberto MD [address], [place], [address] , [place] [facility] 3 10:04:00 Dysuria 42207705 Active 2022 Estella Ruiz LPN null, [place] [facility] 3 09:58:28 Acute urinary tract infection 234049240 Active 2022 JUANCARLOS Graham [address], [place], [address] , [place] [facility] 3 10:46:30 Dysmenorrh ea 807608182 Active 2023 JUANCARLOS Graham [address], [place], [address] , [facility] 4 10:31:42 Impacted cerumen in right ear 7480868226655 103 Active 2023 JUANCARLOS Graham [address], [address], [address] , [facility] [employer] [facility] 4 10:34:05 Acute otitis externa 41973702 Active 2023 JUANCARLOS Graham [address], [facility] [address], [place], [address] , [facility] [employer] [facility] 4 11:08:56 Vitamin D deficiency 75511501 Active 2023 JUANCARLOS Graham [address], [place] [address], [place], [address] , [facility] [employer] [facility] 4 07:59:10 Dental abscess 126652837 Active 2023 JUANCARLOS Graham [address], [place] [address], [place], [address] , [facility] [employer] [facility] 4 11:40:35 Amenorrhea 82108118 Active 2023 Yohana Alberto MD [address], [place] [address], [place], [address] , [facility] [employer] [facility] 4 16:04:41 Hypoglycem ia 718155090 Active 2023 JUANCARLOS Graham [address], [place] [address], [place], [address] , [facility] [employer] [facility] 4 14:16:00 Breast lump symptom Active Not Available [facility] 3 04:51:06 Screening - NAD 011636982 Active Not Available [facility] 3 04:51:06 Suppressio n of menstruati on Active Not Available [facility] 3 04:51:06 Anemia 519695244 Active Not Available [facility] 3 04:51:06 Orthostati c hypotensio n 36785703 Active Not Available [facility] 3 04:51:07 Menometror rhagia 803665682 Active Not Available [facility] 3 04:51:07 Bronchitis 09993169 Active Not Available [facility] 3 04:51:07 Depressive disorder 92243327 Active Not Available [facility] 3 04:51:07 Bacterial vaginosis 997901938 Active Not Available [facility] 3 04:51:07 Streptococ akash sore throat 15936845 Active Not Available [facility] 3 04:51:07 Joint pain 68747390 Active Not Available [facility] 3 04:51:07 depression 00030541 Active Not Available [facility] 3 04:51:07 Urinary tract infectious disease 40966790 Active Not Available [facility] 3 04:51:07 Dyspareuni a 38676911 Active Not Available [facility] 3 04:51:07 Candidiasi s of vagina 69006551 Active Not Available [facility] 3 04:51:07 Pain in elbow 25726815 Active Not Available [facility] 3 04:51:07 Irregular periods 73462923 Active Not Available [facility] 3 04:51:07 Problem Notes None recorded. Procedures Surgical History Date Name Laterality Status Provider Name and Address Organization Details Recorded Time 4 Ear Irrigation completed JUANCARLOS Graham [address] [facility] [address], [place], [address], [facility] 04/25/2023 10:48:45 9 Date of Last Pap Smear completed Not Available [facility] 05/03/2022 04:43:00 Imaging Results Imaging Date Name Status LastModified by Organiz ation Details LastModified Time 01/26/2023 [facility] [address] [facility] [address], [place], [address], 01/29/2023 14:15:13 02/08/2023 CT, abdomen + pelvis, w/o contrast completed [address], [address], 02/09/2023 11:51:44 03/29/2023 CT, abdomen + pelvis, w/o contrast completed [address], [address], 03/30/2023 09:02:04 03/29/2023 XR, chest completed [address], [address], 03/30/2023 09:02:15 09/29/2023 CT, abdomen + pelvis, w/wo contrast completed [address], [address], 10/23/2023 19:00:30 10/15/2023 XR, chest, 2 view completed [address], [address], 12/13/2023 15:26:20 11/21/2023 US, pelvis, complete completed [address], [address], 11/28/2023 11:12:16 Procedure Notes None recorded. Medical Equipment None Reported. Allergies Allergen ID Allergen Name Allergen Category Reaction Reaction Severity Criticality Documentation Date Start Date Code Code System Note Provider Name and Address Organization Details Recorded Time 62190 escitalop abel Not available hives Not available Not available 08/10/2022 63528 8 RxNorm Rosy Brannon, SPORTS PHYSIOTHERAPIST [address] [facility] [address], [place], [address], [facility] [employer] 3 14:31:25 7705 Iodinated contrast media (substanc e) medicatio n rash Not available Not available 05/03/2022 81659 2004 SNOMED Not Available [facility] 3 05:02:41 7707 ibuprofen medicatio n Not available Not available Not available 05/03/2022 5640 RxNorm Not Available [facility] 3 05:02:41 7709 clindamyc in Not available Not available Not available Not available 05/03/2022 2582 RxNorm Not Available [facility] 3 05:02:41 7712 Bactrim medicatio n hives Not available Not available 05/03/2022 25681 9 RxNorm Not Available [facility] 3 05:02:41 7713 aspirin medicatio n Not available Not available Not available 05/03/2022 1191 RxNorm Not Available [facility] 3 05:02:42 7715 amoxicill in medicatio n Not available Not available Not available 05/03/2022 723 RxNorm unkno wn react ion as a child Not Available [facility] 3 05:02:42 Medications Name Sig Start Date Stop Date Status Note LastModified by Organization Details LastModified Time fluoxetin e 40 mg capsule TAKE 1 CAPSULE BY MOUTH EVERY DAY 01/30 completed Not Available Not Available Not Available buspirone 5 mg tablet TK 1 T PO QD active Not Available Not Available No t Available clindamyc in HCl 300 mg capsule Take 1 capsule 3 times a day by oral route for 5 days. 07/30 completed Not Available Not Available Not Available Sulfatrim 200 mg-40 mg/5 mL oral suspensio n SHAKE LIQUID AND TAKE 20 ML BY MOUTH EVERY 12 HOURS FOR 10 DAYS 10/27 completed Not Available Not Available Not Available Lidocaine Viscous 2 % mucosal solution 10/16 completed Not Available Not Available Not Available fluconazo le 150 mg tablet Take 1 tablet every 72 hours by oral route. 2023 active Not Available Not Available Not Avai lable metoprolo l succinate ER 50 mg tablet,ex tended release 24 hr TAKE 1 TABLET BY MOUTH EVERY DAY active Not Available Not Available No t Available ondansetr on HCl 8 mg tablet Take 1 tablet every 8 hours by oral route as needed for 10 days. active Not Available Not Available No t Available metronida zole 0.75 % (37.5 mg/5 gram) vaginal gel I 1 APL VAGINALL Y QD HS FOR 5 DAYS active Not Available Not Available No t Available ondansetr on HCl 4 mg tablet 07/30 completed Not Available Not Available Not Available prednison e 20 mg tablet Take 2 tablets every day by oral route for 5 days. active Not Available Not Available No t Available terconazo le 0.8 % vaginal cream Insert 1 applicat orful every day by vaginal route for 3 days. active Not Available Not Available No t Available clobetaso l 0.05 % topical cream APPLY A THIN LAYER TO THE AFFECTED AREA(S) BY TOPICAL ROUTE 2 TIMES PER DAY 10/03 completed Not Available Not Available Not Available Zithromax Z-Dillon 250 mg tablet Take 2 tablets every day by oral route as directed for 1 day. active Not Available Not Available No t Available clotrimaz ole 1 % vaginal cream Insert 1 applicat orful every day by vaginal route at bedtime. active Not Available Not Available No t Available metronida zole 500 mg tablet TAKE 1 TABLET BY MOUTH EVERY 12 HOURS active Not Available Not Available No t Available acetamino phen 300 mg-codein e 30 mg tablet TAKE 1 TABLET BY MOUTH EVERY 6-8 HOURS NEEDED FOR PAIN 10/20 completed Not Available Not Available Not Available Children' s Silapap 160 mg/5 mL oral liquid TK 20.3 ML PO Q 4 H PRN 07/30 completed Not Available Not Available Not Available ciproflox acin 500 mg tablet TAKE 1 TABLET BY MOUTH TWICE DAILY FOR 10 DAYS active Not Available Not Available No t Available sulfameth oxazole 800 mg-trimet hoprim 160 mg tablet TK 1 T PO Q 12 H FOR 3 days active Not Available Not Available No t Available tramadol 50 mg tablet 07/30 completed Not Available Not Available Not Available Macrobid 100 mg capsule Take 1 capsule every 12 hours by oral route. 2022 active Not Available Not Available Not Avai lable Miconazol e-7 2 % vaginal cream Insert 1 applicat orful every day at night by vaginal route for 7 days. active Not Available Not Available No t Available meloxicam 7.5 mg tablet TK 1 T PO BID 07/30 completed Not Available Not Available Not Available oxycodone -acetamin ophen 5 mg-325 mg tablet TAKE 1-2 TABLETS BY MOUTH EVERY 4 HOURS NEEDED 05/25 completed Not Available Not Available Not Available clindamyc in 75 mg/5 mL oral solution Take 20 mL 3 times a day by oral route for 7 days. 04/26 completed Not Available Not Available Not Available omeprazol e 10 mg capsule,d elayed release TAKE 1 CAPSULE BY MOUTH DAILY active Not Available Not Available No t Available Depo-Prov era 150 mg/mL intramusc ular suspensio n Inject 1 mL every 3 months by intramus cular route. 01/23 completed Not Available Not Available Not Available dicyclomi ne 20 mg tablet TAKE 1 TABLET BY MOUTH THREE TIMES DAILY NEEDED FOR ABDOMINA L DISCOMFO RT active Not Available Not Available No t Available Keflex 250 mg capsule Take 1 capsule every 6 hours by oral route for 5 days. active Not Available Not Available No t Available ferrous sulfate 325 mg (65 mg iron) tablet Take 1 tablet twice a day by oral route. active Not Available Not Available No t Available cephalexi n 250 mg/5 mL oral suspensio n SHAKE LIQUID AND TAKE 10 ML BY MOUTH EVERY 6 HOURS FOR 10 DAYS active Not Available Not Available No t Available nitrofura ntoin macrocrys richi 100 mg capsule Take 1 capsule every 6 hours by oral route for 5 days. 2023 active Not Available Not Available Not Avai lable nystatin 100,000 unit/gram topical cream APPLY TO THE AFFECTED AREA(S) BY TOPICAL ROUTE 2 TIMES PER DAY 10/03 completed Not Available Not Available Not Available ranitidin e 150 mg tablet 07/30 completed Not Available Not Available Not Available buspirone 10 mg tablet TAKE 1 TABLET BY MOUTH TWICE DAILY DIRECTED active Not Available Not Available No t Available fluoxetin e 10 mg capsule TAKE 1 CAPSULE BY MOUTH EVERY DAY 07/27 completed Not Available Not Available Not Available sertralin e 25 mg tablet TAKE 1 TABLET BY MOUTH EVERY DAY active Not Available Not Available No t Available omeprazol e 20 mg capsule,d elayed release TAKE 1 CAPSULE BY MOUTH DAILY active Not Available Not Available No t Available hydroxyzi ne HCl 25 mg tablet TAKE 1 TABLET BY MOUTH THREE TIMES DAILY NEEDED active Not Available Not Available No t Available prednisol one 15 mg/5 mL oral solution Take 10 mL every day by oral route in the morning for 5 days. 09/06 completed Not Available Not Available Not Available mupirocin 2 % topical ointment active Not Available Not Available Not Available diclofena c sodium 50 mg tablet,de layed release Take 1 tablet twice a day by oral route for 30 days. 10/20 completed Not Available Not Available Not Available azithromy pauline 200 mg/5 mL oral suspensio n 10/27 completed Not Available Not Available Not Available albuterol sulfate HFA 90 mcg/actua tion aerosol inhaler INHALE 2 PUFFS BY MOUTH EVERY 4 HOURS NEEDED active Not Available Not Available No t Available ondansetr on 4 mg disintegr ating tablet DISSOLVE 1 TABLET ON THE TONGUE EVERY 8 HOURS NEEDED FOR NAUSEA OR VOMITING active Not Available Not Available No t Available acetamino phen 500 mg/15 mL oral liquid Take 30 mL every 6 hours by oral route as needed for 30 days. 10/27 completed Not Available Not Available Not Available fluoxetin e 20 mg capsule TAKE 1 CAPSULE BY MOUTH EVERY DAY 01/30 completed Not Available Not Available Not Available sertralin e 50 mg tablet TAKE 1 TABLET BY MOUTH DAILY active Not Available Not Available No t Available Diflucan 200 mg tablet active Not Available Not Available Not Available Cipro 500 mg/5 mL oral suspensio n Take 5 mL every 12 hours by oral route for 5 days. 01/02 completed Did not fill Not Available Not Available Not Available diazepam 5 mg tablet TAKE 1 TABLET BY MOUTH EVENING BEFORE PROCEDUR E AND 1 TABLET BY MOUTH 1 HOURS BEFORE PROCEDUR E. DO NOT DRIVE 10/20 completed Not Available Not Available Not Available metoclopr amide 10 mg tablet Take 1 tablet 3 times a day by oral route. active Not Available Not Available No t Available medroxypr ogesteron e 150 mg/mL intramusc ular syringe ADMINIST ER 1 ML IN THE MUSCLE EVERY 3 MONTHS 04/25 completed pt stopped, attempti ng to get Not Available Not Available Not Available escitalop abel 10 mg tablet Take 1 tablet every day by oral route for 30 days. 09/06 completed Not Available Not Available Not Available Premarin 0.625 mg tablet Take 1 tablet twice a day by oral route for 7 days. active Not Available Not Available No t Available ciproflox acin 0.3 %-dexamet hasone 0.1 % ear drops,gayle pension SHAKE LIQUID AND INSTILL 4 DROPS TO AFFECTED EAR TWICE DAILY FOR 7 DAYS active Not Available Not Available No t Available Adult Nasal Decongest ant 15 mg/5 mL oral liquid Take 10 mL every 4 hours by oral route as needed. 03/27 completed Not Available Not Available Not Available cholecalc iferol (vitamin D3) 50 mcg (2,000 unit) capsule TAKE 1 CAPSULE BY MOUTH DAILY active Not Available Not Available No t Available Se-Celio 19 (with docusate) 29 mg iron-1 mg-25 mg tablet active Not Available Not Available Not Available acetamino phen 325 mg/10.15 mL oral solution Take 20.3 mL every 4 hours by oral route as needed. 07/30 completed Not Available Not Available Not Available Zyrtec 10 mg capsule Take 1 capsule every day by oral route for 25 days. active Not Available Not Available No t Available 19 (with docusate) 29 mg iron-1 mg-25 mg tablet Take 1 tablet by oral route. active Not Available Not Available No t Available Solosec [address] granules in packet active Not Available Not Available No t Available Germania 0.25 mg-35 mcg tablet Take 1 tablet every day by oral route. 10/27 completed Not Available Not Available Not Available OneTouch Ultra2 Meter FOLLOW PACKAGE DIRECTIO NS active Not Available Not Available No t Available OneTouch Delica Plus Lancet 30 gauge USE DAILY AND NEEDED active Not Available Not Available No t Available Vitals Date Recorded Body height Body mass index (BMI) Body weight Body temperature Heart rate Oxygen saturation Oxygen saturation in Arterial blood by Pulse oximetry Systolic blood pressure Diastolic blood pressure Provider Name and Address Organization Details Last Updated DateTime 3 157.48 cm 27.8 kg/m2 49678.0 4 g 95.5 [degF] 118 /min 99 % 99 % 110 mm[Hg] 70 mm[Hg] Jennie Camejo RN [place] [facility] 3 10:26:41 Date Recorded Body height Provider Name an d Address Organization Details Last Updated DateTime 02/02/2023 157.48 cm Estella Ruiz LPN [employer] 02/02/2023 10:33:55 Date Recorded Body height Body mass index (BMI) Body weight Body temperature Heart rate Oxygen saturation Oxygen saturation in Arterial blood by Pulse oximetry Systolic blood pressure Diastolic blood pressure Provider Name and Address Organization Details Last Updated DateTime 4 157.48 cm 29.1 kg/m2 16218.1 9 g 97.5 [degF] 105 /min 98 % 98 % 122 mm[Hg] 86 mm[Hg] Claudia Rizvi RN [facility] [employer] [facility] 10:21:17 Date Recorded Body height Body mass index (BMI) Body weight Provider Name and Address Organization Details Last Updated DateTime 06/14/2023 157.48 cm 27.4 kg/m2 10739.86 g Letha Marcano MA [facility] [employer] [facility] 06/14/2023 11:35:58 Social History Question Answer Notes LastModified by Organization Details LastModified Time Tobacco Smoking Status Former Smoker 1 cig a day at work Not Available [facility] 05/03/2022 04:41:40 Do You Have An Advance Directive? No [email or web address].[id number] [id number] Information not available 05/03/2022 What Is Your Level Of Alcohol Consumption? Heavy Information not available 11/09/2023 What Is Your Level Of Caffeine Consumption? Heavy Information not available 11/09/2023 How Much Tobacco Do You Chew? None MIGRATION.0301 [id number] Information not available 05/03/2022 In The 14 Days Before Symptom Onset, Have You Had Close Contact With A Laboratory-confi rmed COVID-19 While That Case Was Ill? No MIGRATION.0301 [id number] Information not available 05/03/2022 In The 14 Days Before Symptom Onset, Have You Had Close Contact With A Person Who Is Under Investigation For COVID-19 While That Person Was Ill? No MIGRATION.0301 [id number] Information not available 05/03/2022 What Type Of Diet Are You Following? REGULAR MIGRATION.0301 [id number] Information not available 05/03/2022 Which Illicit Or Recreational Drugs Have You Used? No MIGRATION.0301 [id number] Information not available 05/03/2022 Do You Or Have You Ever Used E-cigarettes Or Vape? 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 Yes MIGRATION.0301 [id number] Information not available 05/03/2022 Where Do You Live? [place]House MIGRATION.0301 [id number] Information not available 05/03/2022 What Was The Date Of Your Most Recent Tobacco Screening? 09/12/2018 MIGRATION.0301 [id number] Information not available 05/03/2022 Do You Have Any Pets? No MIGRATION.0301 [id number] Information not available 05/03/2022 What Is Your Relationship Status? Single MIGRATION.0301 [id number] Information not available 05/03/2022 Do You Use Your Seat Belt Or Car Seat Routinely? Yes MIGRATION.0301 125877 Information not available 05/03/2022 Do You Have Smoke And Carbon Monoxide Detectors In Your Home? Yes MIGRATION.0301 [id number] Information not available 05/03/2022 Are You Passively Exposed To Smoke? No MIGRATION.0301 [id number] Information not available 05/03/2022 Do You Or Have You Ever Used Smokeless Tobacco? Never Used Smokeless Tobacco MIGRATION.0301 [id number] Information not available 05/03/2022 Are There Any Smokers In Your House? No MIGRATION.0301 238657 Information not available 05/03/2022 How Much Tobacco Do You Smoke? 0.25 PPD Information not available 11/09/2023 Do You Participate In Social Media? Yes MIGRATION.0301 265475 Information not available 05/03/2022 Do You Feel Stressed (tense, Restless, Nervous, Or Anxious, Or Unable To Sleep At Night)? [id number] MIGRATION.0301 360551 Information not available 05/03/2022 Do You Use Any Illicit Or Recreational Drugs? No MIGRATION.0301 199378 Information not available 05/03/2022 Do You Use Sunscreen Routinely? No MIGRATION.0301 [id number] Information not available 05/03/2022 Has Tobacco Cessation Counseling Been Provided? No MIGRATION.0301 801957 Information not available 05/03/2022 How Many Years Have You Smoked Tobacco? 1 MIGRATION.0301 [id number] Information not available 05/03/2022 Are You Currently In School? No MIGRATION.0301 724921 Information not available 05/03/2022 Do You Have Any Dietary Restrictions? No MIGRATION.0301 [id number] Information not available 05/03/2022 Do You Or Have You Ever Used Any Other Forms Of Tobacco Or Nicotine? No MIGRATION.0301 235593 Information not available 05/03/2022 Sex: Female Functional Status Question Answer Note LastModified by Organizat ion Details LastModified Time What is your exercise level? Occasional [id number] Information not available 05/03/2022 Mental Status None recorded. Family History Relationship Description Onset Age of this Age Resolved Age Notes LastModified by Organization Details LastModified Time Paternal Grandmother Diabetes mellitus [id number] Not available 05/03/2022 04:43:07 Paternal Grandmother Hypertensive disorder MIGRATION.749 [id number] Not available 05/03/2022 04:43:07 Daughter Seizure MIGRATION.788 [id number] Not available 05/03/2022 04:43:07 Medical History Condition Response HEADACHES/MIGRAINES Y OTHER # 1 Y HEARTBURN / REFLUX Y ANXIETY DISORDER Y ANEMIA/BLOOD DISORDER Y URINARY/BLADDER/KIDNEY PROBLEMS Y DEPRESSION (INCLUDING POST ) Y Gynecological History Statement/Question Response Abnormal Pap N Date of Last Pap Smear 10/15/2018 Current Control 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 8 Date of LMP Obstetrics History GPAL:G 1 P 1 0 0 1 Type Value Full Term 1 Living 1 Total 1 Immunizations Vaccine Type Date Status Note Provider Nam e and Address Organization Details Recorded Time Influenza, split virus, quadrivalent, PF 12/26/2017 completed Not Available [facility] 3 05:02:29 Past Encounters Encounter ID Performer Location Encounter Start Date Encounter Closed Date Diagnosis/Indication Diagnosis SNOMED-CT Code Diagnosis ICD10 Code Diagnosis Note [id number] _BUDDY_M IGRATION_ DEFAULT_1 _1 , 07/21/2020 00:00:00 07/21/2020 15:45:42 [id number] [facility] [address] [facility] [address] [place] [address] 08/19/2020 00:00:00 08/19/2020 14:30:16 [id number] _NGUYENENA_M IGRATION_ DEFAULT_1 _1 , 10/13/2020 00:00:00 10/13/2020 14:35:51 [id number] [facility] [address] [facility] [address] [place] [address] 10/14/2020 00:00:00 10/14/2020 20:25:52 [id number] _ATHENA_M IGRATION_ DEFAULT_1 _1 , 10/20/2020 00:00:00 10/20/2020 11:27:02 [id number] _ATHENA_M IGRATION_ DEFAULT_1 _1 , 01/05/2021 00:00:00 01/05/2021 11:15:24 [id number] [facility] [place] [address] [place] [address] 05/13/2021 00:00:00 05/13/2021 13:54:55 [id number] [facility] [place] [address] [place] [address] 06/16/2021 00:00:00 06/16/2021 19:57:14 [id number] [facility] [place] [address] [place] [address] 07/12/2021 00:00:00 07/12/2021 10:53:40 [id number] [facility] [place] [address] [place] [address] 08/24/2021 00:00:00 08/24/2021 12:49:24 [id number] [facility] [place] [address] [place] [address] 10/14/2021 00:00:00 10/14/2021 13:57:19 [id number] [facility] [place] [address] [place] [address] 10/27/2021 00:00:00 10/27/2021 16:07:06 [id number] [facility] [place] [address] [place] [address] 12/29/2021 00:00:00 12/29/2021 14:00:59 [id number] [facility] [place] [address] [place] [address] 01/13/2022 00:00:00 01/13/2022 12:42:28 [id number] [facility] Primary Care [facility] [address] [facility] [address] [place] [address] 01/25/2022 00:00:00 01/25/2022 14:01:08 [id number] [facility] Primary Care [place] [address] [facility] [address] [place] [address] 03/08/2022 00:00:00 03/08/2022 13:37:56 [id number] Yohana Alberto MD [facility] Primary Care [facility] [address] [place] [address] 05/25/2022 14:47:10 05/27/2022 03:56:15 [id number] VIPUL Jackson [facility] Primary Care [address] [place] [address] 08/09/2022 14:04:03 08/09/2022 15:33:17 Mixed anxiety and depressive disorder 339492584 F41.8 ChronicNot well controlled at this time. Failed sertraline and buspirone- -Mood Disorder-e ncouraged pt to consider counseling , referral generated. Denies any SI/HI at this time. Start escitalopr am 10mg daily and hydroxyzin e for prn sx. Pt to stop medication and be seen if s/e develop. Pt to send update through portal in 2 weeks. --RTO 4 weeks for f/u on medication [id number] MARTELL Marmolejo [facility] Primary Care [facility] [address] [facility] [address] [place] [address] 2022 11:03:46 2022 11:37:41 Mixed anxiety and depressive disorder 297062898 F41.8 She has been on buspirone and hydroxyzin e but states she thinks the buspirone is making symptoms worse. She was given a trial of escitalopr am but states it caused her to break out so she could not take it. Had similar reaction to sertraline as well in the past. She has been on prozac in the past and states that it worked but last time they tried to put her on it could not get the script to go through but does not remember why. Discussed trying to send to pharmacy again to see if we can get it covered. If no success, we did discuss possible trial of celexa or effexor. She has a referral to therapy but states she just keeps forgetting to call and schedule appointmen t. Highly encouraged her to contact them as I think counseling would greatly benefit her. 08/09/22: ChronicNot well controlled at this time. Failed sertraline and buspirone- -Mood Disorder-e ncouraged pt to consider counseling , referral generated. Denies any SI/HI at this time. Start escitalopr am 10mg daily and hydroxyzin e for prn sx. Pt to stop medication and be seen if s/e develop. Pt to send update through portal in 2 weeks.--RT O 4 weeks for f/u on medication [id number] VIPUL Jackson [facility] Primary Care [address] [place] [address] 10/11/2022 09:29:05 10/11/2022 10:00:59 [id number] VIPUL Jackson [facility] Primary Care [address] [place] [address] 11/01/2022 10:20:38 11/01/2022 11:03:46 Hyperprolactinemia 568050651 E22.1 N64.52 RecurrentS x began after starting depo-prove ra injections .Prolactin 29.3 (12/29/21) Per pt, MRI brain ordered by OB provider a few years ago was normal. Mixed anxi ety and depressive disorder 715635325 F41.8 ChronicNot well controlled at this time. Failed sertraline and buspirone- -Mood Disorder-e ncouraged pt to consider counseling , referral generated. Denies any SI/HI at this time. Increase fluoxetine to 40mg daily. Ok to increase buspirone to TID dosing prn. Trichomonal vaginitis 27 4623354 A59.00 New problemUri ne positive for trich (10/11/22)Pt did not start metronidaz ole as directed b/c she didn't believe she was actually positive and went to ob provider for second opinion. Pt states she got the confirmati on yesterday. Will p/u the meds today and start them tomorrow. [id number] JUANCARLOS Graham [facility] Primary Care [facility] [address] [facility] [address] [place] [address] 02/02/2023 10:04:17 02/02/2023 10:35:16 [id number] JUANCARLOS Graham [facility] Primary Care [facility] [address] [facility] [address] [place] [address] 04/25/2023 10:15:48 04/25/2023 12:38:18 Depressive disorder 12915751 F32.A -chronic, stable with use of zoloft 25mg-feels like emotional roller coaster-sh e would like to increase-t rial sertraline 50mg-denie s SI/HI currently, but did have SI back in January-n ew referral to psychiatri given Dysmenorrhea 000489698 N 94.6 -has not had a period in the last 2 months-rec ently stopped depo-has been trying to get and would like to rule out-lab obtained Impacted c erumen in right ear [id number] 442909 H61.21 right ear irrigated Screening for disorder 462634377 Z13.9 Anemia 368599607 D64.9 -chronic, stable-lab s obtained Acute otitis externa 302 48968 H60.509 -cerumen removed from right ear-still noting possible bacterial/ fungal infection- trial ciprodex-f /u in 1 week-possi ble ENT referral if no improvemen t with meds and another possible irrigation [id number] JUANCARLOS Graham [facility] Primary Care [facility] [address] [facility] [address] [place] [address] 05/03/2023 09:49:15 05/03/2023 10:39:40 [id number] JUANCARLOS Graham [facility] Primary Care [facility] [address] [facility] [address] [place] [address] 06/14/2023 10:47:41 06/14/2023 11:55:19 Dental abscess 463764038 K04.7 -dental abscess noted since last Sunday-p ics in chart-pt noting periods of feeling feverish, uses tylenol as needed-helga n rated at 5/10, 10/10 earlier this morning prior to tylenol-re quests cephalexin suspension , sent ,-[facility] ed to f/u with dentist [facility] Health Concerns Section Related Observation LastModified by Organization Detai ls LastModified Time None Recorded Concern Status LastModified by Organization Details LastModified Time None Recorded Advance Directives Directive N: Payers Encounter Date Sequence Insurance Name Policy Number Policy Ortiz Covered Member ID Ortiz Member ID Guarantor Name 11/01/2022 1 [facility] (MEDICAID HMO) [id number] Mani Allen [id number] Mani Allen 02/02/2023 1 [facility] (MEDICAID HMO) [id number] Mani Allen [id number] Mani Allen 04/25/2023 1 [facility] (MEDICAID HMO) [id number] Mani Allen [id number] Mani Allen 05/03/2023 1 [facility] (MEDICAID HMO) [id number] Mani Allen [id number] Mani Allen 06/14/2023 1 [facility] (MEDICAID HMO) [id number] Mani Allen [id number] Mani Allen Notes Date Note Type Note Provider Name and Address Organization Details Recorded Time 11/01/2022 text/html 1. Pt in office for f/u on std panel. Pt states she didn't start the medication for the trichomoniasis b/c she didn't believe she had it. Pt states that she went to OB provider for a second opinion and got the results back yesterday and is planning to start the metronidazole tomorrow.2. Pt c/o having discharge and frequent mastitis in breasts. Reports discharge only from right breast, but seldom from left breast. Pt states that she believes she could get a whole bottle from the right breast. Pt states sx started after the depo-provera. States she discussed this with OB provider in the past and was sent for MRI, but it was negative.3. Pt states her anxiety is so bad that she isn't able to sleep. States she stopped taking the buspirone and has only been on the Prozac. Rosy Brannon, VIPUL [address], [place], [address], [employer] 11/01/2022 19:07:39 04/25/2023 text/html Pt is here for f /u for depression, blood levels, and ear problems JUANCARLOS Graham [address], [place], [address], [employer] 04/25/2023 11:20:13 06/14/2023 text/html pt is a phone vi sit for oral abscess JUANCARLOS Graham [address], [place], [address], [employer] 06/14/2023 11:47:46 OBGyn Episode No OBEpisode recorded.
--- OUTSIDE RECORDS SUMMARY | 2024-03-27 16:02 | XMS_ITS | Patient Health Summary ---
Author Organization [facility] Address [address] [place] [address] Care Team Providers Care Naval Architect Name Role Phone Koko Rodriguez MD Primary Care Provider [phone] Note from [facility],non-owned Affiliates and Associated Physician Practices is amultiple site organization consisting of ambulatory clinics and hospital sitesin [place], [place]. This disclosure is being madepursuant to the Care Everywhere program and may not contain all information available regarding this patient. Last updated 17.[facility] Social History Tobacco Use Types Packs/Day Years Used Date Smoking Tobacco: Never Assessed Sex and Gender Information Value Date Recorded Sex Assigned at Female 03/04/2024 6:36 AM SUPERVISOR DISPLAY [employer] Gender Identity Female 03/04/2024 6:36 AM SUPERVISOR [employer]PLAY [employer]ICATION Sexual Orientation Bisexual 03/04/2024 6: 36 AM SUPERVISOR DISPLAY FABRICATION Procedures * US BREAST LEFT LTD(Performed 03/03/2024) Performed for Lump in female breast * MAMMO BILAT DIAGNOSTIC W [place](Performed 03/03/2024) Performed for Breast lump in female Results * US Breast Left Ltd (03/03/2024 3:50 PM SUPERVISOR DISPLAY FABRICATION) Anatomical Region Laterality Modality Breast Left Mammography 03/03/2024 2:56 PM SUPERVISOR DISPLAY FABRICATION Impressions 03/03/2024 3:54 PM SUPERVISOR DISPLAY FABRICATION IMPRESSION: No bilateral mammographic or targeted left [...] NEGATIVE. Report drafted by Maddie Rahman MD (residential team leader). I, Essence Bolanos MD, FACR have personally reviewed and interpreted this examination/study. > Interpreting Provider: Essence Bolanos MD, FACR on 03/03/2024 3:54 PM Narrative 03/03/2024 3:54 PM SUPERVISOR DISPLAY FABRICATION EXAMINATIONS: 1. ??BILATERAL DIGITAL DIAGNOSTIC MAMMOGRAM AND TOMOSYNTHESIS AND 2. ??LIMITED LEFT BREAST ULTRASOUND (COMBINED REPORT) LOCATION: [facility] EXAM DATE: ??03/03/2024 HISTORY: Recently fell [...] COMPARISON: Prior mammogram dated 01/26/2020 performed at [facility]. MAMMOGRAM: TECHNIQUE: Diagnostic bilateral mammography was performed. [...] Bilat Diagnostic W [place] (03/03/2024 2:57 PM SUPERVISOR DISPLAY FABRICATION) Anatomical Region Laterality Modality Breast Bilateral Mammography 03/03/2024 2:56 PM SUPERVISOR DISPLAY FABRICATION Impressions 03/03/2024 3:54 PM SUPERVISOR DISPLAY FABRICATION IMPRESSION: No bilateral mammographic or targeted left [...] NEGATIVE. Report drafted by Maddie Rahman MD (residential team leader). I, Essence Bolanos MD, FACR have personally reviewed and interpreted this examination/study. > Interpreting Provider: Essence Bolanos MD, FACR on 03/03/2024 3:54 PM Narrative 03/03/2024 3:54 PM SUPERVISOR DISPLAY FABRICATION EXAMINATIONS: 1. ??BILATERAL DIGITAL DIAGNOSTIC MAMMOGRAM AND TOMOSYNTHESIS AND 2. ??LIMITED LEFT BREAST ULTRASOUND (COMBINED REPORT) LOCATION: [facility] EXAM DATE: ??03/03/2024 HISTORY: Recently fell [...] COMPARISON: Prior mammogram dated 01/26/2020 performed at [facility]. MAMMOGRAM: TECHNIQUE: Diagnostic bilateral mammography was performed. [...] breast parenchyma. Tal Redding MD MAMMO ORDERABLES Care Teams Naval Architect Relationship Specialty Start Date End Date Koko Rodriguez MD [address] [address] [address] [place] [id number] PCP - General Obstetrics and Gynecology 01/30/24
--- OUTSIDE RECORDS SUMMARY | 2024-03-27 16:02 | XMS_ITS | CONTINUITY OF CARE DOCUMENT ---
Author Name nga sylvester Address Unknown Organization [facility] Address [address] [place] [address] Phone [phone] Care Team Providers Care Well Tester Name Role Phone Raad Martinez MD Unavailable ARTIE OLMEDO Unavailable ARTIE OLMEDO Unavailable INSURANCE PROVIDERS Payer name Policy type / Coverage type Kimmy red green party ID [employer] MED[place] Medicaid [id number]
--- OUTSIDE RECORDS SUMMARY | 2024-03-27 16:15 | XMS_ITS | CONTINUITY OF CARE DOCUMENT ---
Author Name nga sylvester Address Unknown Organization [facility] Address [address] [place] [address] Phone [phone] Care Team Providers Care Clinical Assistant Name Role Phone Raad Martinez MD Unavailable [phone] ARTIE OLMEDO Unavailable ARTIE OLMEDO Unavailable [phone] INSURANCE PROVIDERS Payer name Policy type / Coverage type Kimmy red alliance party ID [employer] MEDICAID Medicaid [id number]
== END 2024-03-25 10:36 | disposition home or self-care (01) ==
PROVIDERS: Emergency Provider Emergency Medicine; PCP Nurse Practitioner Family
DX: N39.0 Urinary tract infection, site not specified (principal); F41.8 Other specified anxiety disorders; J45.909 Unspecified asthma, uncomplicated; K21.9 Gastro-esophageal reflux disease without esophagitis; Z87.891 Personal history of nicotine dependence
CPT/HCPCS: 36415; 80053; 81001; 81025; 81513; 85025; 87086; 99283

== ENCOUNTER 2024-06-26 18:13 | Emergency (ER) | payer OTHER, SELFPAY ==
--- NOTE | ~2024-06-26 | XR_ITS ---
CHEST RADIOGRAPH CLINICAL HISTORY: chest pain . COMPARISON: 10/15/2023 TECHNIQUE: Single portable view of the chest. FINDINGS The cardiomediastinal silhouette is unremarkable. The lungs are clear. IMPRESSION: No focal infiltrate or effusion. Reviewed, dictated and finalized at location A.
--- NOTE | ~2024-06-26 | CT_ITS ---
CLINICAL INDICATION: Right flank pain COMPARISON: 09/29/2023. TECHNIQUE: Multiple contiguous axial images of the abdomen and pelvis were performed without the admi nistration of intravenous contrast The dose-length product (DLP) was 537.18 mGy-cm. Automated exposure control and iterative reconstruction technique were employed. FINDINGS/OBSERVATIONS: Visualized lower thorax: The bilateral lung bases are clear. The heart is of normal size, without pericardial effusion. Small hiatal hernia is present. Liver: The liver demonstrates homogeneous attenuation and is not enlarged . Gallbladder and biliary system: The gallbladder is only minimally distended, and otherwise unremarkable. Pancreas: Limited evaluation of the pancreas secondary to the lack of intravenous contrast. Spleen: The spleen demonstrates homogeneous attenuation and is not enlarged. Kidneys: The bilateral kidneys are unremarkable, without hydronephrosis or renal calculi. Adrenal glands: Unremarkable. Gastrointestinal tract: Fecal stasis within the colon. Appendix: The air-filled appendix is of normal caliber (axial series, images 123 through 134). Vasculature: Unremarkable. Lymph nodes: Limited evaluation without intravenous contrast. Pelvic structures: The bladder is distended, and otherwise unremarkable. The uterus is anteverted and anteflexed, and otherwise unremarkable. Body wall and musculoskeletal: Small fat-containing umbilical hernia. No significant degenerative disease within the lower thoracic or lumbosacral spine. IMPRESSION: No obstructive uropathy. No acute pathology within the abdomen or pelvis, as detailed above. Reviewed, dictated and finalized at location A.
--- OUTSIDE RECORDS SUMMARY | 2024-06-26 18:17 | XMS_ITS | Data Portability ---
Author Organization [facility] [email or web address], Main Office Address [address] [place] [address] Assessment Encounter Date Assessment Date Assessment LastModified [...] had a 5 minute TeleMedicine consultation via Rendeev[employer] to discuss the following: Not available 06/14/2023 11:44:46 Plan of Treatment Reminders Order Date Submit Date Provider Last Modified By Organization Details Last Modified Time Details Appointments Physical/ Annual Wellness 30 2024 10:00A Lilliana Hayes NP Not available Not available Not available Lab vitamin D, 25-hydrox y, total, serum 2023 024 [email or web address] [facility] (Lab), [address] [place], [address], 04/25/2023 14:09:44 vitamin B12 + folate, serum or blood 2023 024 [email or web address] [facility] (Lab), [address] [place], [address], 04/25/2023 14:10:03 CBC 2023 024 [email or web address] [facility] (Lab), [address] [place], [address], 04/25/2023 14:08:24 iron + TIBC + ferritin, serum 2023 024 [email or web address] [facility] (Lab), [address] [place], [address], 04/25/2023 14:08:44 test, urine 2023 024 BUDDY [facility] [address], [place], [address], 04/25/2023 14:09:10 prolactin , serum 2022 023 [email or web address] [facility] (Lab), [address] [place], [address], 01/11/2023 12:39:48 Referral psychiatr ist referral - Please call patient to schedule an appointme nt. 2023 024 [email or web address] [facility], [address] [place] [address], [place], [address], 05/24/2023 13:40:28 Procedures removal impacted cerumen using irrigatio n/lavage (PROC) 2023 024 [email or web address] Not available 05/17/2023 07:49:00 Surgeries None recorded. Imaging MRI, pituitary , w/wo contrast - *Please call pt to schedule* 2022 [email or web address] [place] [address], [address], [place], [address], 12/08/2022 09:31:41 Medication Orders cephalexi n 250 mg/5 mL oral suspensio n 2023 024 [email or web address] [id number], [address], [place], [place], [id number], 06/14/2023 11:46:54 ciproflox acin 0.3 %-dexamet hasone 0.1 % ear drops,gayle pension 2023 024 [facility] #97585, [address], [place], [place], [id number], 04/25/2023 11:19:22 sertralin e 50 mg tablet 2023 024 [facility] #91440, [address], [place], [place], [id number], 04/25/2023 10:50:54 fluoxetin e 40 mg capsule 2022 023 [email or web address] [facility] #[id number], [address], [place], [place], [id number], 01/30/2023 14:42:58 buspirone 10 mg tablet 2022 023 [facility] #55324, [address], [place], [place], [id number], 11/01/2022 10:49:13 Patient TargetsNo targets recorded. Patient Instructions Encounter Date Encounter Id Patient Instructions Last Modified By Organization Details Last Modified Time 06/14/2023 [id number] Due to the COVID-19 (Novel Coronavirus) pandemic, it is within this context (and with the understanding that this method of patient encounter is in the patient s best interest as well as the health and safety of other patients and the public) that doctors hospital is being provided for this patient encounter rather than a [id number] visit. This patient encounter is appropriate at this time. This patient has been advised of the potential risks and limitations of this mode of treatment (including, but not limited to, the absence of in-person examination) and has agreed to be treated in a remote fashion despite these risks. Any and all of the patient s /patient s family s questions on this issue have been [...] schedule an appointment. Referring Physician: Vel Ewing, Family Medicine, Encounter Date: 04/25/2023 Results Created Date Observation Date Name Description Value Unit Range Abnormal Flag Note LastModifiedBy Organization Detail LastModifiedTime 10/12/1910/11/2022 RPR SCREE N RPR NON-RE ACTIVE nonrea ctive Not Available [facility] (Lab) [address] [place], [address], 10/12/2022 00:49:19 10/12/1910/12/2022 HIV COMBO : HIV 1/2 AB,P2 4 AG HIV combo assay NON-RE ACTIVE nonrea ctive The HIV combo test scree ns for HIV-1 , HIV-2 , HIV p24 Ag, and HIV group O. Any react amilcar scree n resul t will be sent for PCR confi rmato ry testi ng. Not Available [facility] (Lab) [address] [place], [address], 10/12/2022 17:24:27 10/12/19 23 10/12/2022 HIV COMBO : HIV 1/2 AB,P2 4 AG signal/cutof f 0.10 0.00-0 .99 Not Available [facility] (Lab) [address] [place], [address], 10/12/2022 17:24:27 10/12/1910/14/2022 CT, NG, TRICH VAG BY CHEPE chlamydia by CHEPE Negati ve negati ve Not Available [facility] (Lab) [address] [place], [address], 10/14/2022 11:12:35 08/09/20 23 10/14/2022 CT, NG, TRICH VAG BY CHEPE gonococcus by CHEPE Negati ve negati ve Not Available [facility] (Lab) [address] [place], [address], 10/14/2022 11:12:35 10/12/19 23 10/14/2022 CT, NG, TRICH VAG BY CHEPE trichomonas vaginalis, CHEPE Positi ve negati ve abnormal Perfo rmed at: =G - [facility] [place] [address] [facility] , [place] , [place] [address] Lab Direc tor: Compa pratt MD, Phone : [phone] Not Available [facility] (Lab) [address] [place], [address], 10/14/2022 11:12:35 11/02/1911/03/2022 PROLA CTIN prolactin 26.3 NG/mL 4.8-23 .3 high [place]fo [place]med [place]: [place] [address] Lab Direc tor: Jeffrey stanley PhD, Phone : [phone] Not Available [facility] (Lab) [address] [place], [address], 11/03/2022 09:13:17 02/03/20 23 02/02/2023 urina lysis , dipst ick Leukocytes (reference range: negative yesi/ l) Trace Not Available [address], [address], 02/02/2023 09:58:26 02/03/2002/02/2023 urina lysis , dipst ick Nitrite (reference rage: negative mg/dl) negati ve Not Available [address], [place], [address], 02/02/2023 09:58:26 02/03/20 23 02/02/2023 urina lysis , dipst ick Urobilinogen (reference range: 0.2-1 mg/dl) 0.2 Not Available [address], [place], [address], 02/02/2023 09:58:26 02/03/20 23 02/02/2023 urina lysis , dipst ick Protein (reference range: negative mg/dl) Negati ve Not Available [address], [place], [address], 02/02/2023 09:58:26 02/03/20 23 02/02/2023 urina lysis , dipst ick pH (reference range: 5-7) 5.5 Not Available [address], [place], [address], 02/02/2023 09:58:26 02/03/20 23 02/02/2023 urina lysis , dipst ick Blood (reference range: negative Luisito/ l) Non-He molyze d: Trace Not Available [address], [place], [address], 02/02/2023 09:58:26 02/03/20 23 02/02/2023 urina lysis , dipst ick Specific [place] (reference range: 1.005-1.030) 1.030 Not Available [address], [place], [address], 02/02/2023 09:58:26 02/03/2002/02/2023 urina lysis , dipst ick Ketone (reference range: negative mg/dl) Negati ve Not Available [address], [place], [address], 02/02/2023 09:58:26 02/03/20 23 02/02/2023 urina lysis , dipst ick Bilirubin (reference range: negative mg/dl) Negati ve Not Available [address], [place], [address], 02/02/2023 09:58:26 02/03/20 23 02/02/2023 urina lysis , dipst ick Glucose (reference range: negative mg/dl) Negati ve Not Available [address], [place], [address], 02/02/2023 09:58:26 02/03/20 23 02/02/2023 urina lysis , dipst ick Appearance Cloudy Not Available [address], [place], [address], 02/02/2023 09:58:26 02/03/20 23 02/02/2023 urina lysis , dipst ick Color Dark Yellow Not Available [address], [place], [address], 02/02/2023 09:58:26 04/25/19 24 04/25/2023 pregn cyn test, urine HCG negati ve Not Available [address], [place], [address], 04/25/2023 10:32:02 04/25/19 24 04/25/2023 pregn cyn test, urine HCG Negati ve Not Available [address], [place], [address], 04/25/2023 10:32:02 05/03/19 24 05/03/2023 urina lysis , dipst ick Leukocytes (reference range: negative yesi/ l) Trace Not Available [address], [place], [address], 05/02/2023 14:01:54 05/03/19 24 05/03/2023 urina lysis , dipst ick Nitrite (reference rage: negative mg/dl) negati ve Not Available [address], [place], [address], 05/02/2023 14:01:54 05/03/19 24 05/03/2023 urina lysis , dipst ick Urobilinogen (reference range: 0.2-1 mg/dl) 0.2 Not Available [address], [place], [address], 05/02/2023 14:01:54 05/03/19 24 05/03/2023 urina lysis , dipst ick Protein (reference range: negative mg/dl) Negati ve Not Available [address], [place], [address], 05/02/2023 14:01:54 05/03/19 24 05/03/2023 urina lysis , dipst ick pH (reference range: 5-7) 5.5 Not Available [address], [place], [address], 05/02/2023 14:01:54 05/03/19 24 05/03/2023 urina lysis , dipst ick Blood (reference range: negative Luisito/ l) Non-He molyze d: Trace Not Available [address], [place], [address], 05/02/2023 14:01:54 05/03/19 24 05/03/2023 urina lysis , dipst ick Specific [place] (reference range: 1.005-1.030) 1.025 Not Available [address], [place], [address], 05/02/2023 14:01:54 02/29/20 24 05/03/2023 urina lysis , dipst ick Ketone (reference range: negative mg/dl) Negati ve Not Available [address], [place], [address], 05/02/2023 14:01:54 05/03/19 24 05/03/2023 urina lysis , dipst ick Bilirubin (reference range: negative mg/dl) Negati ve Not Available [address], [place], [address], 05/02/2023 14:01:54 05/03/19 24 05/03/2023 urina lysis , dipst ick Glucose (reference range: negative mg/dl) Negati ve Not Available [address], [place], [address], 05/02/2023 14:01:54 05/03/19 24 05/03/2023 urina lysis , dipst ick Appearance Cloudy Not Available [address], [place], [address], 05/02/2023 14:01:54 05/03/19 24 05/03/2023 urina lysis , dipst ick Color Yellow Not Available [address], [place], [address], 05/02/2023 14:01:54 07/11/19 24 07/12/2023 HCG, TOTAL [...] appro dustin by the FDA or the [facility] er of the assay . Not Available [facility] [address] [place], [address], 07/12/2023 07:15:02 01/27/20 23 01/26/2023 XR, chest No observ ation record ed. [address] [address], [place], [address], 01/29/2023 14:15:13 02/09/20 23 02/08/2023 CT, abdom en + pelvi s, w/o contr ast No observ ation record ed. [address] [address], [place], [address], 02/09/2023 11:51:44 03/29/19 24 03/29/2023 CT, abdom en + pelvi s, w/o contr ast No observ ation record ed. [address] [address], [place], [address], 03/30/2023 09:02:04 03/29/19 24 03/29/2023 XR, chest No observ ation record ed. [address] [address], [place], [address], 03/30/2023 09:02:15 09/29/19 24 09/29/2023 CT, abdom en + pelvi s, w/wo contr ast No observ ation record ed. [address] [address], [place], [address], 10/23/2023 19:00:30 10/15/19 24 10/15/2023 XR, chest , 2 view No observ ation record ed. [address] [address], [place], [address], 12/13/2023 15:26:20 11/21/19 24 11/21/2023 US, pelvi s, compl ete No observ ation record ed. [email or web address] [address], [place], [address], 11/28/2023 11:12:16 Result Notes None recorded. Problems Name Problem SNOMED Code Status Onset Date Resolution Date Notes Provider Name and Address Organization Details Recorded Time Infection of tooth 145177275 Active 2022 MARTELL Marmolejo [address], [place], [address] , [facility] 09:18:28 Abnormal vaginal bleeding 126048465 Active 2022 VIPUL Jackson [address], [place], [address] , [facility] 22:03:45 Vaginitis 17792393 Active 2022 VIPUL Jackson [address], [place], [address] , [facility] 17:00:54 Anxiety 72463223 Active 2022 VIPUL Jackson [address], [place], [address] , [facility] 08:07:13 Mixed anxiety and depressive disorder 807155823 Active 2022 VIPUL Jackson [address], [place], [address] , [facility] 14:43:03 Acute mastitis 16865615 Active 2022 VIPUL Jackson [address], [place], [address] , [facility] 11:07:50 Candidiasi s of skin 51448349 Active 2022 VIPUL Jackson [address], [place], [address] , [facility] 14:56:56 Trichomona l vaginitis 223694723 Active 2022 VIPUL Jackson [address], [place], [address] , [facility] 3 13:01:29 Discharge from nipple 79046760 Active 2022 VIPUL Jackson [address], [place], [address] , [facility] 3 10:34:56 Hyperprola ctinemia 493594477 Active 2022 VIPUL Jackson [address], [place], [address] , [facility] 3 10:37:45 Pain of right elbow joint 9561763514027 9109 Active 2022 Yohana Alberto MD [address], [place], [address] , [facility] 3 18:08:49 Tooth disorder 643547421 Active 2022 VIPUL Jackson [address], [place], [address] , [facility] 3 11:51:49 Mastodynia of bilateral breasts 2958799013937 9109 Active 2022 Yohana Alberto MD [address], [place], [address] , [facility] 3 10:04:00 Dysuria 15591704 Active 2022 Estella Ruiz LPN null, [facility] 3 09:58:28 Acute urinary tract infection 514614440 Active 2022 JUANCARLOS Graham [address], [place], [address] , [facility] 3 10:46:30 Dysmenorrh ea 631406538 Active 2023 Vel Ewing, INSOLE C[employer]ER-C [address], [place], [address] , [facility] 4 10:31:42 Impacted cerumen in right ear 8657922661749 103 Active 2023 ADAM GrahamP-C [address], [place], [address] , [facility] 4 10:34:05 Acute otitis externa 02940640 Active 2023 VIPUL Graham-Dagoberto [address], [place], [address] , [facility] 4 11:08:56 Vitamin D deficiency 13267506 Active 2023 VIPUL Graham-C [address], [place], [address] , [facility] 4 07:59:10 Dental abscess 157234594 Active 2023 JUANACRLOS Graham [address], [place], [address] , [facility] 4 11:40:35 Amenorrhea 99356389 Active 2023 Yohana Alberto MD [address], [place], [address] , [facility] 4 16:04:41 Hypoglycem ia 111400741 Active 2023 VIPUL Graham-C [address], [place], [address] , [facility] 4 14:16:00 Breast lump symptom Active Not Available [facility] 3 04:51:06 Screening - NAD 607977255 Active Not Available [facility] 3 04:51:06 Suppressio n of menstruati on 483887347 Active Not Available [facility] 3 04:51:06 Anemia 179429762 Active Not Available [facility] 3 04:51:06 Orthostati c hypotensio n 13737126 Active Not Available [facility] 3 04:51:07 Menometror rhagia 417243704 Active Not Available [facility] 3 04:51:07 Bronchitis 26444431 Active Not Available [facility] 3 04:51:07 Depressive disorder 99219873 Active Not Available [facility] 3 04:51:07 Bacterial vaginosis 328288301 Active Not Available [facility] 3 04:51:07 Streptococ akash sore throat 90822615 Active Not Available [facility] 3 04:51:07 Joint pain 38443725 Active Not Available [facility] 3 04:51:07 depression 64942184 Active Not Available [facility] 3 04:51:07 Urinary tract infectious disease 90818701 Active Not Available [facility] 3 04:51:07 Dyspareuni a 73425597 Active Not Available [facility] 3 04:51:07 Candidiasi s of vagina 36086712 Active Not Available [facility] 3 04:51:07 Pain in elbow 31339023 Active Not Available [facility] 3 04:51:07 Irregular periods 62592544 Active Not Available [facility] 3 04:51:07 Problem Notes None recorded. Procedures Surgical History Date Name Laterality Status Provider Name and Address Organization Details Recorded Time 4 Ear Irrigation completed JUANCARLOS Graham [address] [facility], [place], [address], [facility] 04/25/2023 10:48:45 9 Date of Last Pap Smear completed Not Available [facility] 05/03/2022 04:43:00 Imaging Results Imaging Date Name Status LastModified by Organiz [facility] Details LastModified Time 01/26/2023 XR, chest completed [email or web address] [facility] [address] [facility] [address], [place], [address], 01/29/2023 14:15:13 02/08/2023 CT, abdomen + pelvis, w/o contrast completed [address], [address], 02/09/2023 11:51:44 03/29/2023 CT, abdomen + pelvis, w/o contrast completed [address], [address], 03/30/2023 09:02:04 03/29/2023 XR, chest completed [address], [address], 03/30/2023 09:02:15 09/29/2023 CT, abdomen + pelvis, w/wo contrast completed [address], [address], 10/23/2023 19:00:30 10/15/2023 XR, chest, 2 view completed [address], [address], 12/13/2023 15:26:20 11/21/2023 US, pelvis, complete completed [address], [address], 11/28/2023 11:12:16 Procedure Notes None recorded. Medical Equipment None Reported. Allergies Allergen ID Allergen Name Allergen Category Reaction Reaction Severity Criticality Documentation Date Start Date Code Code System Note Provider Name and Address Organization Details Recorded Time 78140 escitalop abel Not available hives Not available Not available 08/10/2022 10870 8 RxNorm Rosy Brannon, INSOLE COVERER [address] [address], [place], [address] , [facility] 3 14:31:25 7705 Iodinated contrast media (substanc e) medicatio n rash Not available Not available 05/03/2022 36826 2004 SNOMED Not Available [facility] 3 05:02:41 7707 ibuprofen medicatio n Not available Not available Not available 05/03/2022 5640 RxNorm Not Available [facility] 3 05:02:41 7709 clindamyc in Not available Not available Not available Not available 05/03/2022 2582 RxNorm Not Available [facility] 3 05:02:41 7712 Bactrim medicatio n hives Not available Not available 05/03/2022 30755 9 RxNorm Not Available [facility] 3 05:02:41 7713 aspirin medicatio n Not available Not available Not available 05/03/2022 1191 RxNorm Not Available [facility] 3 05:02:42 7715 amoxicill in medicatio n Not available Not available Not available 05/03/2022 723 RxNorm unkno wn react ion as a child Not Available [facility] 3 05:02:42 Medications Name Sig Start Date [...] completed Not Available Not Available Not Available cetirizin e 10 mg tablet TAKE 1 TABLET BY MOUTH EVERY DAY active Not Available Not Available No t Available Sulfatrim 200 mg-40 mg/5 mL oral [...] 0.75 % (37.5 mg/5 gram) vaginal gel INSERT 1 APPLICAT ORFUL VAGINALL Y EVERY DAY AT BEDTIME FOR 5 DAYS active Not Available Not [...] oxazole 800 mg-trimet hoprim 160 mg tablet TAKE 1 TABLET BY MOUTH EVERY 12 HOURS FOR 7 DAYS active Not Available Not Available No t Available tramadol 50 mg tablet 07/30 completed Not Available Not Available Not Available Macrobid 100 mg capsule Take 1 capsule every 12 hours by oral route. 2022 active Not Available Not Available Not Avai lable terconazo le 80 mg vaginal supposito ry UNWRAP AND INSERT 1 SUPPOSIT ORY VAGINALL Y EVERY DAY AT BEDTIME FOR 3 DAYS active Not Available Not Available No t Available Miconazol e-7 2 % vaginal cream Insert [...] Not Available Not Available No t Available NovawiseTouch Ultra Test strips USE DAILY AND NEEDED active Not Available Not Available No t Available phenazopy ridine 100 mg tablet TAKE 1 TABLET BY MOUTH THREE TIMES DAILY NEEDED FOR PAIN FOR 6 DOSES active Not Available Not Available No t [...] Not Available No t Available clindamyc in 2 % vaginal cream INSERT 1 APPLICAT ORFUL VAGINALL Y EVERY DAY AT BEDTIME FOR 3 DAYS active Not Available Not Available No [...] on 4 mg disintegr ating tablet DISSOLVE ONE TABLET BY MOUTH EVERY 6 TO 8 HOURS NEEDED active Not Available Not Available [...] TAKE 1 TABLET BY MOUTH EVERY DAY IN THE MORNING active Not Available Not Available No t [...] Not Available No t Available Germania 0.25 mg-0.035 mg tablet Take 1 tablet every day by oral route. 10/27 completed Not Available Not Available Not Available OneTouch Ultra2 Meter FOLLOW PACKAGE DIRECTIO NS active Not Available Not Available No t Available OneTouch Delica Plus Lancet 33 gauge USE DAILY AND NEEDED active Not [...] Updated DateTime 3 157.48 cm 27.8 kg/m2 41341.0 4 g 95.5 [degF] 118 /min 99 % 99 % 110 mm[Hg] 70 mm[Hg] Jennie Camejo RN [facility] [employer] [facility] 3 10:26:41 Date Recorded Body height Provider Name an d Address Organization Details Last Updated DateTime 02/02/2023 157.48 cm Estella Ruiz LPN [facility] [email or web address] 02/02/2023 10:33:55 Date Recorded Body height Body mass index (BMI) Body weight Body temperature Heart rate Oxygen saturation Oxygen saturation in Arterial blood by Pulse oximetry Systolic blood pressure Diastolic blood pressure Provider Name and Address Organization Details Last Updated DateTime 4 157.48 cm 29.1 kg/m2 54861.1 9 g 97.5 [degF] 105 /min 98 % 98 % 122 mm[Hg] 86 mm[Hg] Claudia Rizvi RN [facility] [email or web address] 4 10:21:17 Date Recorded Body height Body mass index (BMI) Body weight Provider Name and Address Organization Details Last Updated DateTime 06/14/2023 157.48 cm 27.4 kg/m2 04260.86 g Letha Marcano MA [place] [employer] [facility] [email or web address] 06/14/2023 11:35:58 Social History Question Answer Notes LastModified by Organization Details LastModified Time Tobacco Smoking Status Former Smoker 1 cig a day at work Not Available [employer] 05/03/2022 04:41:40 Do You Have An Advance Directive? No [id number] Information not available 05/03/2022 What Is Your Level Of Alcohol Consumption? Heavy Information not available 11/09/2023 What Is Your Level Of Caffeine Consumption? Heavy Information not available 11/09/2023 How Much Tobacco Do You Chew? None [id number] Information not available 05/03/2022 In The 14 Days Before Symptom Onset, Have You Had Close Contact With A Laboratory-confi rmed COVID-19 While That Case Was Ill? No [id number] Information not available 05/03/2022 In The 14 Days Before Symptom Onset, Have You Had Close Contact With A Person Who Is Under Investigation For COVID-19 While That Person Was Ill? No [id number] Information not available 05/03/2022 What Type Of Diet Are You Following? REGULAR [id number] Information not available 05/03/2022 Which Illicit Or Recreational Drugs Have You Used? No [id number] Information not available 05/03/2022 Do You Or Have You Ever Used E-cigarettes Or Vape? Never Used Electronic Cigarettes [id number] Information not available 05/03/2022 What Is Your Occupation? [employer] [id number] Information not available 05/03/2022 Are There Any Guns Present In Your Home? Yes [id number] Information not available 05/03/2022 [facility] [id number] Information not available 05/03/2022 What Was The Date Of Your Most Recent Tobacco Screening? 09/12/2018 MIGRATION.0301 [id number] Information not available 05/03/2022 Do You Have Any Pets? No MIGRATION.0301 [id number] Information not available 05/03/2022 What Is Your Relationship Status? Single MIGRATION.0301 [id number] Information not available 05/03/2022 Do You Use Your Seat Belt Or Car Seat Routinely? Yes MIGRATION.0301 [id number] Information not available 05/03/2022 Do You Have Smoke And Carbon Monoxide Detectors In Your Home? Yes MIGRATION.0301 [id number] Information not available 05/03/2022 Are You Passively Exposed To Smoke? No MIGRATION.0301 [id number] Information not available 05/03/2022 Do You Or Have You Ever Used Smokeless Tobacco? Never Used Smokeless Tobacco MIGRATION.0301 [id number] Information not available 05/03/2022 Are There Any Smokers In Your House? No MIGRATION.0301 [id number] Information not available 05/03/2022 How Much Tobacco Do You Smoke? 0.25 PPD Information not available 11/09/2023 Do You Participate In Social Media? Yes MIGRATION.0301 799994 Information not available 05/03/2022 Do You Feel Stressed (tense, Restless, Nervous, Or Anxious, Or Unable To Sleep At Night)? [id number] MIGRATION.0301 [id number] Information not available 05/03/2022 Do You Use Any Illicit Or Recreational Drugs? No MIGRATION.0301 127872 Information not available 05/03/2022 Do You Use Sunscreen Routinely? No MIGRATION.0301 [id number] Information not available 05/03/2022 Has Tobacco Cessation Counseling Been Provided? No MIGRATION.0301 446186 Information not available 05/03/2022 How Many Years Have You Smoked Tobacco? 1 MIGRATION.030 334603 Information not available 05/03/2022 Are You Currently In School? No MIGRATION.030 [id number] Information not available 05/03/2022 Do You Have Any Dietary Restrictions? No MIGRATION.030 [id number] Information not available 05/03/2022 Do You Or Have You Ever Used Any Other Forms Of Tobacco Or Nicotine? No MIGRATION.030 094484 Information not available 05/03/2022 Sex: Female Functional Status Question Answer Note LastModified by Organizat ion Details LastModified Time What is your exercise level? Occasional [id number] Information not available 05/03/2022 Mental Status None recorded. Family History Relationship Description Onset Age of this Age Resolved Age Notes LastModified by Organization Details LastModified Time Paternal Grandmother Diabetes mellitus MIGRATION.291 [id number] Not available 05/03/2022 04:43:07 Paternal Grandmother Hypertensive disorder MIGRATION.317 [id number] Not available 05/03/2022 04:43:07 Daughter Seizure MIGRATION.823 [id number] Not available 05/03/2022 04:43:07 Medical History Condition Response HEADACHES/MIGRAINES Y ANXIETY DISORDER Y ANEMIA/BLOOD DISORDER Y URINARY/BLADDER/KIDNEY PROBLEMS Y OTHER # 1 Y DEPRESSION (INCLUDING POST ) Y HEARTBURN / REFLUX Y Gynecological History Statement/Question Response Abnormal Pap N Date of Last Pap Smear 10/15/2018 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 Control 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 Age at Menarche 8 Date of LMP Obstetrics History GPAL:G 1 P 1 0 0 1 Type Value Full Term 1 Living 1 Total 1 Immunizations Vaccine Type Date Status Note Provider Nam e and Address Organization Details Recorded Time Influenza, split virus, quadrivalent, PF 12/26/2017 completed Not Available [facility] 05:02:29 Past Encounters Encounter ID Performer Location Encounter Start Date Encounter Closed Date Diagnosis/Indication Diagnosis SNOMED-CT Code Diagnosis ICD10 Code Diagnosis Note [id number] _ATHENA_M IGRATION_ DEFAULT_1 _1 , 07/21/2020 00:00:00 07/21/2020 15:45:42 [id number] [facility] [place] [address] [place] [address] 08/19/2020 00:00:00 08/19/2020 14:30:16 [id number] _ATHENA_M IGRATION_ DEFAULT_1 _1 , 10/13/2020 00:00:00 10/13/2020 14:35:51 [id number] [facility] [place] [address] [place] [address] 10/14/2020 00:00:00 10/14/2020 20:25:52 [id number] _ATHENA_M IGRATION_ DEFAULT_1 _1 , 10/20/2020 00:00:00 10/20/2020 11:27:02 [id number] _ATHENA_M IGRATION_ DEFAULT_1 _1 , 01/05/2021 00:00:00 01/05/2021 11:15:24 [id number] [facility] [place] [address] [place] [address] 05/13/2021 00:00:00 05/13/2021 13:54:55 [id number] [facility] [place] [address] [place] [address] 06/16/2021 00:00:00 06/16/2021 19:57:14 [id number] [facility] [place] [address] [place] [address] 07/12/2021 00:00:00 07/12/2021 10:53:40 [id number] [facility] [place] [address] [place] [address] 08/24/2021 00:00:00 08/24/2021 12:49:24 [id number] [facility] [place] [address] [place] [address] 10/14/2021 00:00:00 10/14/2021 13:57:19 [id number] [facility] [place] [address] [place] [address] 10/27/2021 00:00:00 10/27/2021 16:07:06 [id number] [facility] [place] [address] [place] [address] 12/29/2021 00:00:00 12/29/2021 14:00:59 [id number] [facility] [place] [address] [place] [address] 01/13/2022 00:00:00 01/13/2022 12:42:28 [id number] [facility] [place] [address] [place] [address] 01/25/2022 00:00:00 01/25/2022 14:01:08 [id number] [facility] [place] [address] [place] [address] 03/08/2022 00:00:00 03/08/2022 13:37:56 [id number] Yohana Alberto MD [facility] [place] [address] [place] [address] 05/25/2022 14:47:10 05/27/2022 03:56:15 [id number] VIPUL Jackson [facility] [place] [address] [place] [address] 08/09/2022 14:04:03 08/09/2022 15:33:17 Mixed anxiety and depressive disorder [id number] F41.8 ChronicNot well controlled at this time. [...] --RTO 4 weeks for f/u on medication [id number] MARTELL Marmolejo [facility] Primary Care [facility] [address] [place] [address] 2022 11:03:46 2022 11:37:41 Mixed anxiety and depressive disorder [id number] F41.8 She has been on buspirone and [...] O 4 weeks for f/u on medication [id number] VIPUL Jackson [facility] Primary Care [facility] [address] [place] [address] 10/11/2022 09:29:05 10/11/2022 10:00:59 [id number] VIPUL Jackson [facility] Primary Care [address] [place] [address] 11/01/2022 10:20:38 11/01/2022 11:03:46 Hyperprolactinemia [id number] E22.1 N64.52 RecurrentS x began after starting depo-prove ra injections .Prolactin 29.3 (12/29/21) Per pt, MRI brain ordered by OB provider a few years ago was normal. Mixed anxi ety and depressive disorder [id number] F41.8 ChronicNot well controlled at this time. Failed sertraline and buspirone- -Mood Disorder-e ncouraged pt to consider counseling , referral generated. Denies any SI/HI at this time. Increase fluoxetine to 40mg daily. Ok to increase buspirone to TID dosing prn. Trichomonal vaginitis 27 9943222 A59.00 New problemUri ne positive for trich (10/11/22)Pt did not start metronidaz ole as directed b/c she didn't believe she was actually positive and went to ob provider for second opinion. Pt states she got the confirmati on yesterday. Will p/u the meds today and start them tomorrow. [id number] JUANCARLOS Graham [facility] Primary Care [address] [place] [address] 02/02/2023 10:04:17 02/02/2023 10:35:16 [id number] JUANCARLOS Graham [facility] Primary Care [address] [place] [address] 04/25/2023 10:15:48 04/25/2023 12:38:18 Depressive disorder 01815249 F32.A -chronic, stable with use of zoloft 25mg-feels like emotional roller coaster-sh e would like to increase-t rial sertraline 50mg-denie s SI/HI currently, but did have SI back in January-n ew referral to psychiatri given Dysmenorrhea [id number] N 94.6 -has not had a period in the last 2 months-rec ently stopped depo-has been trying to get and would like to rule out-lab obtained Impacted c erumen in right ear [id number] 208300 H61.21 right ear irrigated Screening for disorder [id number] Z13.9 Anemia 785117771 D64.9 -chronic, stable-lab s obtained Acute otitis externa 302 36453 H60.509 -cerumen removed from right ear-still noting possible bacterial/ fungal infection- trial ciprodex-f /u in 1 week-possi ble ENT referral if no improvemen t with meds and another possible irrigation [id number] VIPUL Graham-C [facility] Primary Care [facility] [address] [place] [address] 05/03/2023 09:49:15 05/03/2023 10:39:40 [id number] VIPUL Graham-C [facility] Primary Care [facility] [address] [place] [address] 06/14/2023 10:47:41 06/14/2023 11:55:19 Dental abscess [id number] K04.7 -dental abscess noted since last Sunday-p ics in chart-pt noting periods of feeling feverish, uses tylenol as needed-helga n rated at 5/10, 10/10 earlier this morning prior to tylenol-re quests cephalexin suspension , sent ,-encour ed to f/u with dentist MAR[facility] Health Concerns Section Related Observation LastModified by Organization Detai ls LastModified Time None Recorded Concern Status LastModified by Organization Details LastModified Time None Recorded Advance Directives Directive N: Payers Encounter Date Sequence Insurance Name Policy Number Policy Ortiz Covered Member ID Ortiz Member ID Guarantor Name 11/01/2022 1 [facility] (MEDICAID HMO) [id number] [address] Allen [id number] Mani Allen 02/02/2023 1 [facility] (MEDICAID HMO) [id number] Mani Allen [id number] Mani Allen 04/25/2023 1 [facility] (MEDICAID HMO) [id number] Mani Allen [id number] Mani Allen 05/03/2023 1 [facility] (MEDICAID HMO) [id number] Mani Tijerina Tiffany [id number] Mani Tijerina Tiffany 06/14/2023 1 [facility] (MEDICAID HMO) [id number] Mani Lutzannalisafacundo [id number] Mani Lutzannalisafacundo Notes Date Note Type Note Provider Name [...] and has only been on the Prozac. VIPUL Jackson [address], [place], [address], [facility] 11/01/2022 19:07:39 04/25/2023 text/html Pt is here for f /u for depression, blood levels, and ear problems JUANCARLOS Graham [address], [place], [address], [facility] 04/25/2023 11:20:13 06/14/2023 text/html pt is a phone vi sit for oral abscess JUANCARLOS Graham [address], [place], [address], [facility] 06/14/2023 11:47:46 OBGyn Episode No OBEpisode recorded.
--- OUTSIDE RECORDS SUMMARY | 2024-06-26 18:17 | XMS_ITS | Clinical Summary ---
Author Organization [facility] Address [address] [place] [address] Care Team Providers Care Sales Analyst Name Role Phone Koko Rodriguez MD Primary Care Provider [phone] Source Comments [facility],non-owned Affiliates and Associated Physician Practices is amultiple site organization consisting of ambulatory clinics and hospital sitesin [place], [place], [place] and [place]. This disclosure is being madepursuant to the Care Everywhere program and may not contain all information available regarding this patient. Last updated 17.[facility] Allergies Active Allergy Reactions Criticality Noted Date Comments Amoxicillin Itching,Unknown,Mario h Medium 07/10/2017 amoxicillin Other reaction(s): Unknown Aspirin Itching,Unknown Low 01/24/2022 Clindamycin Unknown 01/24/2022 Escitalopram Urticaria High 01/24/2022 Ibuprofen Itching,Unknown Low 03/24/2020 Sulfamethoxazole W-Trimethoprim Urticaria Medium 06/12/2024 Medications * Be aware that medications may not be up to date on this document. Alwaysverify current medications with the patient. 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 (Primary Dx) from Last 3 Months Family History Medical History Relation Name Comments Cancer - Breast Other Relation Name Status Comments Other Maternal great aunt Paternal Grandfather Alive Paternal Grandmother Social History Tobacco Use Types Packs/Day Years Used Date Smoking Tobacco: Never Assessed Comments No Sex and Gender Information Value Date Recorded Sex Assigned at Female 03/04/2024 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 Legal Sex Female 9:54 AM CEMENT TESTER ASSISTANT Gender Identity Female 03/04/2024 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 Sexual Orientation Bisexual 03/04/2024 6: 36 AM CEMENT TESTER ASSISTANT Last Filed Vital Signs Vital Sign Reading Time Taken Comments Blood Pressure 120/85 06/12/2024 8:42 AM CDT Pulse 110 06/12/2024 8:42 AM CDT Temperature 36.1 C (97 F) 06/12/2024 8:42 AM CDT Respiratory Rate - - Oxygen Saturation 97% 06/12/2024 8:42 AM CDT Inhaled Oxygen Concentration - - Weight 73.9 kg (163 lb) 06/12/2024 8:42 AM CDT Height 157.5 cm (5' 2 ) 06/12/2024 8:42 AM CDT Body Mass Index 29.81 06/12/2024 8:42 AM CDT Plan of Treatment Health Maintenance Due Date Last Done Comments PAP SMEAR 1994 HIV SCREENING 2009 HEPATITIS C SCREENING 09/01/2012 DTAP/TDAP/TD VACCINES (1 - Tdap) 2013 HEPATITIS B VACCINE (1 of 3 - 19+ 3-dose series) 2013 COVID-19 VACCINE ( - 2023-2 5 season) 2023 DEPRESSION SCREENING 03/05/2024 INFLUENZA VACCINE (Season Ended) 2024 12/27/19 18 ZOSTER VACCINE (1 of 2) 2044 HIB VACCINE Aged Out No longer eligi ble based on patient's age to complete this topic HPV VACCINE Aged Out No longer eligi ble based on patient's age to complete this topic MENINGOCOCCAL (Group B) VACC INE SHARED DECISION-MAKING Aged Out No longer eligibl e based on patient's age to complete this topic MENINGOCOCCAL GROUPS A/C/Y/W VACCINE Aged Out No longer eligible b ased on patient's age to complete this topic PNEUMOCOCCAL VACCINE Aged Out No long er eligible based on patient's age to complete this topic Insurance [facility] Care Teams Sales Analyst Relationship Specialty Start Date End Date Koko Rodriguez MD [address] [place] [id number] PCP - General Obstetrics and Gynecology 01/30/24
--- OUTSIDE RECORDS SUMMARY | 2024-06-26 18:17 | XMS_ITS | Clinical Summary ---
Author Organization [facility] Autumn holloway [facility] Address [address] [place] [address] Care Team Providers Care Dairy Manufacturing Technologist Name Role Phone Unavailable Primary Care Provider [...] Active Active Problems No known active problems Encounters Date Type Department Care Team Description 06/03/2024 External Device Data STL ABSTRACTION Provider, Abstract 05/10/2024 External Device Data STL ABSTRACTION Provider, Abstract 05/09/2024 External Device Data STL ABSTRACTION Provider, Abstract 05/07/2024 External Device Data STL ABSTRACTION Provider, Abstract 04/23/2024 External Device Data STL ABSTRACTION Provider, Abstract 04/02/2024 External Device Data STL ABSTRACTION Provider, Abstract from Last 3 Months Family History Medical [...] 122 08/13/2023 11:37 AM CDT Temperature 36.3 C (97.4 F) 08/13/2023 11:37 AM CDT Respiratory Rate 14 08/13/2023 11:37 AM CDT Oxygen Saturation 97% 08/13/2023 11:37 AM CDT Inhaled Oxygen Concentration - - Weight 73.5 kg (162 lb) 08/13/2023 11:37 AM CDT Height 157.5 cm (5' 2 ) 01/24/2022 10:35 AM SOFA COVER INSPECTOR Body Mass Index 29.63 01/24/2022 10:35 AM SOFA COVER INSPECTOR Plan of Treatment Upcoming Encounters Date Type Department Care Team (Late st Contact Info) Description 08/13/2024 10:15 AM CDT [facility] [address] [place] [address] [address] [place] [address] John Morrow MD [address] [place] [address] Health Maintenance Due Date Last Done Comments DTAP/TDAP/TD VACCINES (1 - Tdap) 2013 HEPATITIS B VACCINES (1 of 3 - 19+ 3-dose series) 2013 CERVICAL CANCER SCREENING 09/07/2015 HPV/Cotest (21-29) 09/07/2015 PAP SMEAR 09/07/2015 INFLUENZA VACCINE (#1) 2023 12/26/2017 HPV VACCINES Aged Out No longer eligi ble based on patient's age to complete this topic Insurance [employer] [place]
--- OUTSIDE RECORDS SUMMARY | 2024-06-26 18:17 | XMS_ITS | Clinical Summary ---
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
--- OUTSIDE RECORDS SUMMARY | 2024-06-26 18:17 | XMS_ITS | CONTINUITY OF CARE DOCUMENT ---
Author Name nga sylvester Address Unknown Organization [facility] Address [address] [place] [address] Phone [phone] Care Team Providers Care Stemming Machine Operator Name Role Phone Raad Martinez MD Unavailable ARTIE OLMEDO Unavailable ARTIE OLMEDO Unavailable INSURANCE PROVIDERS Payer name Policy type / Coverage type Kimmy red libertarian ID [place] MEDICAID Medicaid [id number]
[2024-06-26 18:23] VITALS: BP 151/92; PULSE 103; RESP 18; TEMP 36.4; O2SAT 98
--- NOTE | 2024-06-26 18:28 | ED.BACK ---
HPI - Back Pain/Injury General Chief Complaint: Back Pain/Injury <Shiloh Fernandez, GRIEF COUNSELOR - Last Filed: 06/26/24 18:31> Stated Complaint: R flank pain <Shiloh Fernandez GRIEF COUNSELOR - Last Filed: 06/26/24 18:31> Time Seen by Provider: 06/26/24 18:20 <Shiloh Fernandez GRIEF COUNSELOR - Last Filed: 06/26/24 18:31> Focused HPI: Patient is a 28 year female who presents to the ER with complaints of right flank pain that started yesterday. She reports she has decreased urination. Patient also endorses nausea and vomiting today. She is unsure whether not she has blood in her urine as she is currently on her menstrual period. Patient denies any recent fevers, constipation, or abdominal pain. GENERAL: Well-appearing, well-nourished, and in no acute distress. HEAD: Normocephalic, atraumatic. CHEST: Clear to auscultation. ?No respiratory distress. HEART: Regular rate and rhythm.?+ R flank CVA tenderness NEURO: ?Alert and oriented x3. Patient screened in triage and initial orders placed.? ?Additional care and disposition to be based upon?diagnostic testing and treatment. <Shiloh Fernandez, GRIEF COUNSELOR - Last Filed: 06/26/24 18:31> History of Present Illness HPI Narrative: Agree with the above HPI. 28-year-old female with a history of depression, anxiety, GERD and kidney stones presents to the emergency department for right flank pain, nausea and vomiting this started yesterday. States she went to pick something off of the ground when her symptoms started yesterday. She does endorse a history of kidney stones. Patient reports decreased p.o. intake and decreased urination and concerns for dehydration. Patient also states she began developing right-sided chest pain that started an hour prior to arrival. States she has had symptoms similar to this with prior kidney infections. She denies aggravating or alleviating factors. States her chest pain started while she was picking lice out of her daughters here. She notes that the chest pain may have started due to her anxiety. She denies cough or congestion, shortness of breath, hemoptysis, recent surgeries or hospitalizations, history of VTE. <Yani Ramírez PA-C - Last Filed: 06/26/24 21:56> Related Data Home Medications: Home Medications ?Medication ?Instructions ?Recorded ?Confirmed ?Last Taken ?Type albuterol sulfate 90 mcg/actuation inhalation 07/22/20 01/16/24 Unknown History aerosol inhaler (ProAir HFA) sertraline 50 mg tablet (Zoloft) 50 mg PO DAILY 06/18/23 03/25/24 Unknown History buspirone 10 mg tablet 10 mg PO 11/27/23 01/16/24 Unknown History <Shiloh Fernandez, GRIEF COUNSELOR - Last Filed: 06/26/24 18:31> Allergies/Adverse Reactions: Allergies Allergy/AdvReac Type Severity Reaction Status Date / Time escitalopram (From Lexapro) Allergy Severe Hives Verified 06/26/24 18:14 amoxicillin Allergy Mild Rash Verified 06/26/24 18:14 Iodinated Contrast Media Allergy Mild Rash Verified 06/26/24 18:14 aspirin Allergy Swelling Verified 06/26/24 18:14 of Lip/Tongue/Throat clindamycin Allergy Itching Verified 06/26/24 18:14 ibuprofen Allergy Swelling Verified 06/26/24 18:14 of Lip/Tongue/Throat latex Allergy Itching Verified 06/26/24 18:14 seafood AdvReac Mild Hives Uncoded 06/26/24 18:14 <Shiloh Fernandez, GRIEF COUNSELOR - Last Filed: 06/26/24 18:31> Review of Systems Review of Systems: All systems reviewed & are unremarkable except as noted in HPI and below <Yani Ramírez PA-C - Last Filed: 06/26/24 21:56> [facility] Past Medical History Medical History: Medical History Initiation of Depo Provera Encounter for screening examination for sexually transmitted disease Depression History of kidney stones Surveillance for Depo-Provera contraception Nipple discharge in antepartum period Breast lump or mass Urinary tract infection Pneumonia Migraines Anemia Overweight (BMI 25.0-29.9) Headache GERD (gastroesophageal reflux disease) Anxiety Asthma <Shiloh Fernandez APRN - Last Filed: 06/26/24 18:31> Surgical History Surgical History: Surgical History No history of previous surgery <Shiloh Fernandez GRIEF COUNSELOR - Last Filed: 06/26/24 18:31> Family History Family History: Family History Mother Cancer Grandparent Diabetes mellitus paternal grandmother Hypertension paternal grandmother Other Seizure daughter <Shiloh Fernandez, GRIEF COUNSELOR - Last Filed: 06/26/24 18:31> Social History Social History: Social History Smoking status: Former smoker Tobacco type: cigarettes Second hand tobacco smoke exposure: No Smoking end date: 05/04/23 Alcohol intake: former Alcohol use details: once a month-wine coolers Substance use: never Substance use type: does not use Do You Feel Safe in your Home?: Yes Lack of Transportation: No Lack of Food: Sometimes True Current Housing: I Have Housing Concerned About Future Housing: No Difficulty Paying Gas/Electric Bills: No Difficulty Paying for Meds: No Currently Unemployed: No Education: High School Diploma/GED Difficulty w/ Childcare or Family Care: No Living arrangements: other Additional living arrangements comments: lives with grandmother Occupation/Education: unemployed 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 HEAD: Normocephalic, atraumatic. EYES: PERRLA and EOMI. ENT: Nares clear, no rhinorrhea or epistaxis. Mucous membranes moist. NECK: Supple. CHEST: Clear to auscultation. No respiratory distress. HEART: Regular rate and rhythm. No murmur heard. Normal peripheral pulses. ABDOMEN: Soft, nontender, nondistended, normal active bowel sounds. No rebound, guarding or rigidity. Mild right CVA tenderness EXTREMITIES: Normal range of motion. No edema. SKIN: Warm, dry, no rash. NEURO: No focal deficits. Alert and oriented x3. Sensation intact throughout, no saddle anesthesia. BLE strength 5/5 <Yani Ramírez PA-C - Last Filed: 06/26/24 21:56> Course Vital Signs Vital signs: Vital Signs Temperature 97.6 F 06/26/24 18:23 Pulse Rate 103 H 06/26/24 18:23 Respiratory Rate 18 06/26/24 18:23 Blood Pressure 151/92 H 06/26/24 18:23 Pulse Oximetry 98 06/26/24 18:23 Oxygen Delivery Room Air 06/26/24 18:23 Temperature 97.6 F 06/26/24 18:23 Pulse Rate 102 H 06/26/24 20:12 Respiratory Rate 26 H 06/26/24 20:12 Blood Pressure 120/75 06/26/24 20:12 Pulse Oximetry 98 06/26/24 20:12 Oxygen Delivery Room Air 06/26/24 18:23 <Shiloh Fernandez, GRIEF COUNSELOR - Last Filed: 06/26/24 18:31> Vital Signs Temperature 97.6 F 06/26/24 18:23 Pulse Rate 103 H 06/26/24 18:23 Respiratory Rate 18 06/26/24 18:23 Blood Pressure 151/92 H 06/26/24 18:23 Pulse Oximetry 98 06/26/24 18:23 Oxygen Delivery Room Air 06/26/24 18:23 Temperature 97.6 F 06/26/24 18:23 Pulse Rate 102 H 06/26/24 20:12 Respiratory Rate 26 H 06/26/24 20:12 Blood Pressure 120/75 06/26/24 20:12 Pulse Oximetry 98 06/26/24 20:12 Oxygen Delivery Room Air 06/26/24 18:23 <Yani Ramírez PA-C - Last Filed: 06/26/24 21:56> MDM - Back Pain/Injury MDM Narrative Medical decision making narrative: 28-year-old female with history of depression, GERD, anxiety, kidney stones presents to the emergency department for right flank pain, nausea and vomiting since yesterday and right-sided chest pain that started 1 hour prior to arrival. Patient is attributing chest pain to anxiety. Vitals with mild tachycardia less than 105. Patient is anxious appearing but declines any medications for anxiety. Exam is notable for the above. CBC with leukocytosis of 11.4, no bandemia. Chemistries are unremarkable. UA with 2+ blood, trace ketones and 4+ bacteria, no white blood cells are leuk esterase, no nitrates. Pt is on her menstrual cycle. is negative. CT abdomen pelvis shows no obstructive uropathy and no acute pathology. EKG shows normal sinus rhythm with rate of 94 ppm, normal VA interval, mild prolonged QRS duration of 26, normal QTC, nonspecific T-wave abnormalities that are unchanged from prior, no acute ST elevations or depressions. Troponin is undetectable. D-dimer within normal limits, wells score is low risk. Bladder scan did show greater than 500 cc of urine, however patient was able to void with 36 cc of urine in the bladder remaining. Patient updated on results. On re-evaluation she is resting comfortably in exam bed playing on her phone. Chest pain has resolved. Suspect this was due to anxiety. Back pain seems MSK nature, however given reported nausea and vomiting in addition right flank pain, will cover for pyelo with Bactrim. Patient is requesting liquid antibiotics. Tracey sent for nausea vomiting. Advised Tylenol/ibuprofen [id number] for pain. Discussed close follow-up with PCP and strict ED return precautions. She is agreeable with the plan verbalized understanding. Discharged in stable condition. <Yani Ramírez PA-C - Last Filed: 06/26/24 21:56> Lab Data Result diagrams: 06/26/24 19:41 06/26/24 19:41 <Shiloh Fernandez APRN - Last Filed: 06/26/24 18:31> Labs: Lab Results 06/26/24 06/26/24 Range/Units 19:41 20:41 WBC 11.4 H (4.5-10.0) K/mm3 RBC 5.41 H (4.2-5.4) M/mm3 Hgb 13.6 (12.0-15.0) g/dL Hct 43.9 (37.0-47.0) % MCV 81.1 (80-100) fl MCH 25.1 L (26-34) pg MCHC 31.0 L (32-36) g/dl RDW 13.2 (11.5-14.5) % Plt Count 302 (150-375) k/mm3 MPV 9.1 (7.4-10.4) fl Immature Gran % (Auto) 0.4 (0-0.5) % Neut % (Auto) 57.0 (45.5-73.1) % Lymph % (Auto) 35.1 (18.3-44.2) % [place] % (Auto) 5.3 (2.6-8.5) % Eos % (Auto) 1.7 (0-4.4) % Baso % (Auto) 0.5 (0.2-1.2) % Lymph # (Auto) 3.99 H (0.9-3.2) K/mm3 [place] # (Auto) 0.6 (0.1-0.6) K/mm3 Eos # (Auto) 0.2 (0-0.3) K/mm3 Baso # (Auto) 0.1 (0.0-0.1) K/mm3 Abs Immat Gran (auto) 0.05 H (0.00-0.031) K/mm3 Absolute Neuts (auto) 6.5 (1.3-6.7) K/mm3 Absolute Nucleated RBC 0.000 (0.0-0.012) K/mm3 Nucleated RBC % 0.0 (0.0-0.2) % PT 13.4 (11.1-14.7) Seconds INR 1.0 APTT 34.2 (22.3-36.8) Seconds D-Dimer 0.31 (<0.48) ug/mL Sodium 140 (137-145) mmol/L Potassium 3.9 (3.4-5.0) mmol/L Chloride 104 (98-107) mmol/L Carbon Dioxide 28 (22-30) mmol/L Anion Gap 8 (4-12) mmol/L BUN 12 (7-17) mg/dL Creatinine 0.75 (0.7-1.0) mg/dL Estim Creat Clear Calc 95 ml/min Estimated GFR > 60 (59 - ) Glucose 100 (65-110) mg/dL Calcium 9.0 (8.4-10.2) mg/dL Total Bilirubin 0.3 (0.2-1.3) mg/dL AST 28 (14-36) U/L ALT 33 (6-35) U/L Alkaline Phosphatase 99 (38-126) U/L Troponin I < 0.012 (0.000-0.034) ng/mL Total Protein 8.0 (6.3-8.2) g/dL Albumin 4.5 (3.5-5.1) g/dL Lipase 59 (23-300) U/L Urine Color Yellow (Yellow) Urine Appearance Cloudy H (Clear) Urine pH 6.0 (5.0-9.0) Ur Specific [place] 1.030 (1.001-1.035) Urine Protein Trace (Negative) mg/dL Urine Glucose (UA) Negative (Negative) mg/dL Urine Ketones Trace H (Negative) mg/dL Ur Blood (Man) 2+ H (Negative) Urine Nitrate Negative (Negative) Urine Bilirubin Negative (Negative) Urine Urobilinogen 1.0 (<2.0) mg/dL Leukocyte Esterase Rfl Negative (Negative) LOTTIE/UL Urine RBC 0-2 (0-2) /hpf Urine WBC 0-5 (0-3) /hpf Ur Squamous Epith Cells Moderate (Few) /hpf Urine Bacteria 4+ H /hpf Urine Casts 0-2 POC Urine HCG, Qual Negative (Negative) <Shiloh Fernandez, GRIEF COUNSELOR - Last Filed: 06/26/24 18:31> Lab Results 06/26/24 06/26/24 Range/Units 19:41 20:41 WBC 11.4 H (4.5-10.0) K/mm3 RBC 5.41 H (4.2-5.4) M/mm3 Hgb 13.6 (12.0-15.0) g/dL Hct 43.9 (37.0-47.0) % MCV 81.1 (80-100) fl MCH 25.1 L (26-34) pg MCHC 31.0 L (32-36) g/dl RDW 13.2 (11.5-14.5) % Plt Count 302 (150-375) k/mm3 MPV 9.1 (7.4-10.4) fl Immature Gran % (Auto) 0.4 (0-0.5) % Neut % (Auto) 57.0 (45.5-73.1) % Lymph % (Auto) 35.1 (18.3-44.2) % [place] % (Auto) 5.3 (2.6-8.5) % Eos % (Auto) 1.7 (0-4.4) % Baso % (Auto) 0.5 (0.2-1.2) % Lymph # (Auto) 3.99 H (0.9-3.2) K/mm3 [place] # (Auto) 0.6 (0.1-0.6) K/mm3 Eos # (Auto) 0.2 (0-0.3) K/mm3 Baso # (Auto) 0.1 (0.0-0.1) K/mm3 Abs Immat Gran (auto) 0.05 H (0.00-0.031) K/mm3 Absolute Neuts (auto) 6.5 (1.3-6.7) K/mm3 Absolute Nucleated RBC 0.000 (0.0-0.012) K/mm3 Nucleated RBC % 0.0 (0.0-0.2) % PT 13.4 (11.1-14.7) Seconds INR 1.0 APTT 34.2 (22.3-36.8) Seconds D-Dimer 0.31 (<0.48) ug/mL Sodium 140 (137-145) mmol/L Potassium 3.9 (3.4-5.0) mmol/L Chloride 104 (98-107) mmol/L Carbon Dioxide 28 (22-30) mmol/L Anion Gap 8 (4-12) mmol/L BUN 12 (7-17) mg/dL Creatinine 0.75 (0.7-1.0) mg/dL Estim Creat Clear Calc 95 ml/min Estimated GFR > 60 (59 - ) Glucose 100 (65-110) mg/dL Calcium 9.0 (8.4-10.2) mg/dL Total Bilirubin 0.3 (0.2-1.3) mg/dL AST 28 (14-36) U/L ALT 33 (6-35) U/L Alkaline Phosphatase 99 (38-126) U/L Troponin I < 0.012 (0.000-0.034) ng/mL Total Protein 8.0 (6.3-8.2) g/dL Albumin 4.5 (3.5-5.1) g/dL Lipase 59 (23-300) U/L Urine Color Yellow (Yellow) Urine Appearance Cloudy H (Clear) Urine pH 6.0 (5.0-9.0) Ur Specific [place] 1.030 (1.001-1.035) Urine Protein Trace (Negative) mg/dL Urine Glucose (UA) Negative (Negative) mg/dL Urine Ketones Trace H (Negative) mg/dL Ur Blood (Man) 2+ H (Negative) Urine Nitrate Negative (Negative) Urine Bilirubin Negative (Negative) Urine Urobilinogen 1.0 (<2.0) mg/dL Leukocyte Esterase Rfl Negative (Negative) LOTTIE/UL Urine RBC 0-2 (0-2) /hpf Urine WBC 0-5 (0-3) /hpf Ur Squamous Epith Cells Moderate (Few) /hpf Urine Bacteria 4+ H /hpf Urine Casts 0-2 POC Urine HCG, Qual Negative (Negative) <Yani Ramírez PA-C - Last Filed: 06/26/24 21:56> Discharge Plan Discharge Clinical Impression: Atypical chest pain UTI (urinary tract infection) Qualifiers: Urinary tract infection type: acute cystitis Hematuria presence: with hematuria Qualified Code(s): N30.01 - Acute cystitis with hematuria Back pain Qualifiers: Back pain location: low back pain Chronicity: acute Back pain laterality: right Sciatica presence: without sciatica Qualified Code(s): M54.50 - Low back pain, unspecified <Shiloh Fernandez APRN - Last Filed: 06/26/24 18:31> Patient Disposition: Home <Shiloh Fernandez APRN - Last Filed: 06/26/24 18:31> Condition: Stable <Shiloh Fernandez APRN - Last Filed: 06/26/24 18:31> Instructions: Antibiotic Form, Urinary Tract Infection in Women (ED), Acute Low Back Pain (ED), Flank Pain (ED) <Sihloh Fernandez APRN - Last Filed: 06/26/24 18:31> Additional Instructions: Please take the medications as directed. Take Tylenol ibuprofen as needed for pain as directed [id number]. Follow up closely the primary care provider. Return to the emergency department if you develop fever 100.4 or greater, your unable to tolerate food or fluids, you develop worsening pain or other concerning symptoms. <Shiloh Fernandez APRN - Last Filed: 06/26/24 18:31> Patient Language: Tamazight <Shiloh Fernandez APRN - Last Filed: 06/26/24 18:31> Prescriptions: New sulfamethoxazole-trimethoprim 200-40 mg/5 mL suspension 20 ml PO BID 7 Days Qty: 280 0RF ondansetron 4 mg tablet,disintegrating 4 mg PO Q8H Qty: 14 0RF No Action buspirone 10 mg tablet 10 mg PO sertraline [Zoloft] 50 mg tablet 50 mg PO DAILY phenazopyridine [Pyridium] 100 mg tablet 100 mg PO TID PRN (Reason: pain) Qty: 6 0RF sulfamethoxazole-trimethoprim [Bactrim DS] 800-160 mg tablet 1 tablet PO Q12H 7 Days Qty: 14 0RF albuterol sulfate [ProAir HFA] 90 mcg/actuation HFA aerosol inhaler INHALATION <Shiloh Fernandez APRN - Last Filed: 06/26/24 18:31> Follow-up/Referrals: Ewing,Vel Joy APRN [Primary Care Provider] - <Shiloh Fernandez APRN - Last Filed: 06/26/24 18:31>
--- NOTE | 2024-06-26 19:34 | ECG_ITS ---
Test Date: 2024-06-26 20:17:10 Measurements Intervals [place] Rate: 94 P: 24 CO: 184 QRS: 43 QRSD: 126 T: 8 QT: 336 QTc: 420 Interpretive Statements SINUS RHYTHM BORDERLINE ST-T WAVE ABNORMALITY- ANT/INF LEADS BASELINE ARTIFACT- I, II, III, AVR, AVL, AVF, V2 BORDERLINE ECG Compared to ECG 10/15/2023 18:07:46 HEART RATE HAS DECREASED Electronically Signed On 06-27-2024 07:17:38 CDT by Leroy Martin D.O.
--- NOTE | 2024-06-26 19:40 | ED_ITS ---
HPI - Back Pain/Injury General Chief Complaint: Back Pain/Injury Stated Complaint: R flank pain Time Seen by Provider: 06/26/24 18:20 History of Present Illness HPI Narrative: 28-year-old female with a history of depression, anxiety, GERD and kidney stones presents to the emergency department for right flank pain, nausea and vomiting this started yesterday. Patient reports decreased p.o. intake and decreased urination and concerns for dehydration. Related Data Home Medications ?Medication ?Instructions ?Recorded ?Confirmed ?Last Taken ?Type albuterol sulfate 90 mcg/actuation inhalation 07/22/20 01/16/24 Unknown History aerosol inhaler (ProAir HFA) sertraline 50 mg tablet (Zoloft) 50 mg PO DAILY 06/18/23 03/25/24 Unknown History buspirone 10 mg tablet 10 mg PO 11/27/23 01/16/24 Unknown History Allergies Allergy/AdvReac Type Severity Reaction Status Date / Time escitalopram (From Lexapro) Allergy Severe Hives Verified 06/26/24 18:14 amoxicillin Allergy Mild Rash Verified 06/26/24 18:14 Iodinated Contrast Media Allergy Mild Rash Verified 06/26/24 18:14 aspirin Allergy Swelling Verified 06/26/24 18:14 of Lip/Tongue/Throat clindamycin Allergy Itching Verified 06/26/24 18:14 ibuprofen Allergy Swelling Verified 06/26/24 18:14 of Lip/Tongue/Throat latex Allergy Itching Verified 06/26/24 18:14 seafood AdvReac Mild Hives Uncoded 06/26/24 18:14 PMFSH Past Medical History Medical History Anemia Anxiety Asthma Breast lump or mass Depression Encounter for screening examination for sexually transmitted disease GERD (gastroesophageal reflux disease) Headache History of kidney stones Initiation of Depo Provera Migraines Nipple discharge in antepartum period Overweight (BMI 25.0-29.9) Pneumonia Surveillance for Depo-Provera contraception Urinary tract infection Surgical History Surgical History No history of previous surgery Family History Family History Mother Cancer Grandparent Diabetes mellitus paternal grandmother Hypertension paternal grandmother Other Seizure daughter Social History Social History (Updated 01/16/24 @ 09:22 by Eleanor Duran CMA) Smoking status: Former smoker Tobacco type: cigarettes Second hand tobacco smoke exposure: No Smoking end date: 05/04/23 Alcohol intake: former Alcohol use details: once a month-wine coolers Substance use: never Substance use type: does not use Do You Feel Safe in your Home?: Yes Lack of Transportation: No Lack of Food: Sometimes True Current Housing: I Have Housing Concerned About Future Housing: No Difficulty Paying Gas/Electric Bills: No Difficulty Paying for Meds: No Currently Unemployed: No Education: High School Diploma/GED Difficulty w/ Childcare or Family Care: No Living arrangements: other Additional living arrangements comments: lives with grandmother Occupation/Education: unemployed 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 Gender identity (if verbalized by the patient): Female Sexual Orientation (if Verbalized by the Patient): Bisexual Spiritual care concerns: No Agree to blood products: Yes Course Vital Signs Vital signs: Vital Signs Temperature 97.6 F 06/26/24 18:23 Pulse Rate 103 H 06/26/24 18:23 Respiratory Rate 18 06/26/24 18:23 Blood Pressure 151/92 H 06/26/24 18:23 Pulse Oximetry 98 06/26/24 18:23 Oxygen Delivery Room Air 06/26/24 18:23 Temperature 97.6 F 06/26/24 18:23 Pulse Rate 103 H 06/26/24 18:23 Respiratory Rate 18 06/26/24 18:23 Blood Pressure 151/92 H 06/26/24 18:23 Pulse Oximetry 98 06/26/24 18:23 Oxygen Delivery Room Air 06/26/24 18:23 Discharge Plan Discharge Patient Language: Icelandic Prescriptions: No Action buspirone 10 mg tablet 10 mg PO sertraline [Zoloft] 50 mg tablet 50 mg PO DAILY phenazopyridine [Pyridium] 100 mg tablet 100 mg PO TID PRN (Reason: pain) Qty: 6 0RF sulfamethoxazole-trimethoprim [Bactrim DS] 800-160 mg tablet 1 tablet PO Q12H 7 Days Qty: 14 0RF albuterol sulfate [ProAir HFA] 90 mcg/actuation HFA aerosol inhaler INHALATION Follow-up/Referrals: Gildardo,Vel Joy APRN [Primary Care Provider] -
[2024-06-26] MEDS: SODIUM CHLORIDE 0.9% IV 1,000 ML 999 ML IV CONT (19:41)
[2024-06-26 19:51] LABS: Add Urine Microscopic? YES; Appearance Urine Cloudy (Clear); Bacteria Urine 4+ /hpf; Bilirubin Urine Negative (Negative); Blood Urine 2+ (Negative); Color Urine Yellow (Yellow); Glucose Urine UA Negative (Negative); Ketones Urine Trace mg/dL (Negative); Leukocyte Esterase Ur Negative LEU/UL (Negative); Nitrate Urine Negative (Negative); Non Pathogenic Casts 0-2; Protein Urine Trace mg/dL (Negative); RBC Urine 0-2 /hpf (0-2); Squamous Epithelial Cell Urine Moderate /hpf (Few); WBC Urine 0-5 /hpf (0-3)
[2024-06-26 19:52] LABS: Basophils Absolute Auto 0.1 K/mm3 (0.0-0.1); Basophils Percent Auto 0.5 % (0.2-1.2); Eosinophils Absolute Auto 0.2 K/mm3 (0-0.3); Eosinophils Percent Auto 1.7 % (0-4.4); Hematocrit 43.9 % (37.0-47.0); Hemoglobin 13.6 g/dL (12.0-15.0); Immature Granulocyte Absolute 0.05 K/mm3 (0.00-0.031); Immature Granulocyte Percent A 0.4 % (0-0.5); Lymphocytes Absolute Auto 3.99 K/mm3 (0.9-3.2); Lymphocytes Percent Auto 35.1 % (18.3-44.2); Mean Corpuscular Hemoglobin 25.1 pg (26-34); Mean Corpuscular Volume 81.1 fl (80-100); Mean Platelet Volume 9.1 fl (7.4-10.4); Monocytes Absolute Auto 0.6 K/mm3 (0.1-0.6); Monocytes Percent Auto 5.3 % (2.6-8.5); Neutrophils Absolute Auto 6.5 K/mm3 (1.3-6.7); Platelet Count Result 302 k/mm3 (150-375); Red Blood Count 5.41 M/mm3 (4.2-5.4); Red Cell Distribution Width 13.2 % (11.5-14.5); White Blood Count 11.4 K/mm3 (4.5-10.0)
[2024-06-26 19:56] LABS: Alanine Aminotransferase 33 U/L (6-35); Albumin Level 4.5 g/dL (3.5-5.1); Alkaline Phosphatase 99 U/L (38-126); Anion Gap 8 mmol/L (4-12); Aspartate Amino Transferase 28 U/L (14-36); Bilirubin,Total 0.3 mg/dL (0.2-1.3); Blood Urea Nitrogen 12 mg/dL (7-17); Carbon Dioxide 28 mmol/L (22-30); Chloride 104 mmol/L (98-107); Estimated CRCL calculation 95 ml/min; Estimated Glomerular Filt Rate > 60; Glucose 100 mg/dL (65-110); Lipase 59 U/L (23-300); Potassium 3.9 mmol/L (3.4-5.0); Sodium 140 mmol/L (137-145)
[2024-06-26 20:01] LABS: Prothrombin Time 13.4 Seconds (11.1-14.7)
--- OUTSIDE RECORDS SUMMARY | 2024-06-26 20:01 | XMS_ITS | Clinical Summary ---
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
--- OUTSIDE RECORDS SUMMARY | 2024-06-26 20:01 | XMS_ITS | Clinical Summary ---
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
--- OUTSIDE RECORDS SUMMARY | 2024-06-26 20:01 | XMS_ITS | Clinical Summary ---
Author Organization [facility] Address [address] [place] [address] Care Team Providers Care Assembler Engine Name Role Phone Koko Rodriguez MD Primary Care Provider [phone] Source Comments [facility],non-owned Affiliates and Associated Physician Practices is amultiple site organization consisting of ambulatory clinics and hospital sitesin [place], [place], [place] and [place]. This disclosure is being madepursuant to the Care Everywhere program and may not contain all information available regarding this patient. Last updated 17.[facility] Allergies Active Allergy Reactions Criticality Noted Date [...] Description 06/12/2024 9:00 AM CDT [facility] [address] [place] [address] Daria Parmar MD Galactorrhea in female (Primary [...] Sex Assigned at Female 03/04/2024 6:36 AM HEAD CHEF Legal Sex Female 9:54 AM HEAD CHEF Gender Identity Female 03/04/2024 6:36 AM HEAD CHEF Sexual Orientation Bisexual 03/04/2024 6: 36 AM HEAD CHEF Last Filed Vital Signs Vital Sign Reading [...] patient's age to complete this topic Insurance [facility] Care Teams Assembler Engine Relationship Specialty Start Date End Date Koko Rodriguez MD [address] [place] [id number] PCP - General Obstetrics and Gynecology 01/30/24
--- OUTSIDE RECORDS SUMMARY | 2024-06-26 20:01 | XMS_ITS | CONTINUITY OF CARE DOCUMENT ---
Author Name nga sylvester Address Unknown Organization [facility] Address [address] [place] [address] Phone [phone] Care Team Providers Care Field Crop Farm Worker Name Role Phone Raad Martinez MD Unavailable [phone] ARTIE OLMEDO Unavailable ARTIE OLMEDO Unavailable INSURANCE PROVIDERS Payer name Policy type / Coverage type Kimmy red constitution party ID [employer] MEDICAID Medicaid [id number]
[2024-06-26 20:02] LABS: Partial Thromboplastin Time 34.2 Seconds (22.3-36.8)
[2024-06-26 20:06] LABS: D Dimer 0.31 ug/mL (<0.48)
[2024-06-26 20:08] LABS: Troponin I < 0.012 ng/mL (0.000-0.034)
[2024-06-26 20:12] VITALS: BP 120/75; PULSE 102; RESP 26; O2SAT 98
[2024-06-26 20:43] LABS: BEDSIDEPREGUCG Negative (Negative)
[2024-06-26 22:10] VITALS: BP 118/78; PULSE 77; RESP 18; O2SAT 100
== END 2024-06-26 22:10 | disposition home or self-care (01) ==
PROVIDERS: Registered Nurse; Emergency Provider Physician Assistant; PCP Nurse Practitioner Family
DX: J45.909 Unspecified asthma, uncomplicated (principal); E66.3 Overweight; Z68.32 Body mass index [BMI] 32.0-32.9, adult; K21.9 Gastro-esophageal reflux disease without esophagitis; F41.9 Anxiety disorder, unspecified; F32.A Depression, unspecified; Z87.442 Personal history of urinary calculi; Z87.01 Personal history of pneumonia (recurrent); R94.31 Abnormal electrocardiogram [ECG] [EKG]
CPT/HCPCS: 36415; 71045; 74176; 80053; 81001; 81025; 83690; 84484; 85025; 85380; 85610; 85730; 93005; 96360; 99284; J7030

== ENCOUNTER 2024-11-10 13:56 | Emergency (ER) | payer OTHER, SELFPAY ==
[2024-11-10 14:04] VITALS: BP 135/90; PULSE 96; RESP 16; TEMP 36.4; O2SAT 99
--- NOTE | 2024-11-10 14:21 | ED.GENADULT ---
HPI - General Adult General Chief complaint: Urogenital-Female Stated complaint: side pain Time Seen by Provider: 11/10/24 14:20 Source: patient, RN notes reviewed and old records reviewed Mode of arrival: ambulatory Limitations: no limitations History of Present Illness HPI narrative: 29-year-old female presents to the [facility] with right lower back pain for 2 days. Reports she had a lot of frequency, urgency and burning yesterday. Has taken Tylenol. Has a history of UTIs patient reports. States that she cannot swallow pills Denies any new fevers. Has had nausea with 1 episode of vomiting. Denies abdominal pain Related Data Home Medications ?Medication ?Instructions ?Recorded ?Confirmed ?Last Taken ?Type albuterol sulfate 90 mcg/actuation inhalation 07/22/20 07/09/24 Unknown History aerosol inhaler (ProAir HFA) Allergies Allergy/AdvReac Type Severity Reaction Status Date / Time escitalopram (From Lexapro) Allergy Severe Hives Verified 11/10/24 14:02 amoxicillin Allergy Mild Rash Verified 11/10/24 14:02 Iodinated Contrast Media Allergy Mild Rash Verified 11/10/24 14:02 aspirin Allergy Swelling Verified 11/10/24 14:02 of Lip/Tongue/Throat clindamycin Allergy Itching Verified 11/10/24 14:02 ibuprofen Allergy Swelling Verified 11/10/24 14:02 of Lip/Tongue/Throat latex Allergy Itching Verified 11/10/24 14:02 seafood AdvReac Mild Hives Uncoded 07/09/24 09:33 Review of Systems Review of Systems: All systems reviewed & are unremarkable except as noted in HPI and below Constitutional: Constitutional: Reports no additional constitutional complaints ENT: Reports system reviewed and no additional complaints, except as documented Cardiovascular: Cardiovascular: Reports no additional cardiovascular complaints, Denies chest pain and Denies dyspnea Respiratory: Respiratory: Reports no additional respiratory complaints, Denies chest congestion, Denies cough and Denies dyspnea Genitourinary: Genitourinary: Reports as per HPI Musculoskeletal: Musculoskeletal: Reports no additional musculoskeletal complaints Integumentary/Breasts: Skin/Breast: Reports system reviewed and no additional complaints, except as docu PMFSH Past Medical History Medical History Initiation of Depo Provera Encounter for screening examination for sexually transmitted disease Depression History of kidney stones Surveillance for Depo-Provera contraception Nipple discharge in antepartum period Breast lump or mass Urinary tract infection Pneumonia Migraines Anemia Overweight (BMI 25.0-29.9) Headache GERD (gastroesophageal reflux disease) Anxiety Asthma Surgical History Surgical History No history of previous surgery Family History Family History Mother Cancer Grandparent Diabetes mellitus paternal grandmother Hypertension paternal grandmother Other Seizure daughter Social History Social History Smoking status: Former smoker Tobacco type: cigarettes and e-cigarettes/vaping Second hand tobacco smoke exposure: No Smoking end date: 05/04/23 Alcohol intake: former Alcohol use details: once a month-wine coolers 07/09/2024 sober for 1 year and 5 months/ ss Substance use: former Substance use type: marijuana Other substance usage details: highschool Do You Feel Safe in your Home?: Yes Lack of Transportation: No Lack of Food: Sometimes True Current Housing: I Have Housing Concerned About Future Housing: No Difficulty Paying Gas/Electric Bills: No Difficulty Paying for Meds: No Currently Unemployed: No Education: High School Diploma/GED Difficulty w/ Childcare or Family Care: No Living arrangements: other Additional living arrangements comments: lives with grandmother Occupation/Education: unemployed Additional occupation/education comments: [employer] Gender identity (if verbalized by the patient): Female Sexual Orientation (if Verbalized by the Patient): Bisexual Spiritual care concerns: No Agree to blood products: Yes Comments At the time of my signature, I reviewed and agree with the nursing past medical, surgical, social, and family history. There is no relevant family history pertinent to the patient complaint. Exam Const: General: cooperative, healthy appearing, comfortable, no acute distress, well developed, alert and well nourished Nutritional Appearance: well nourished and obese Orientation/consciousness: patient oriented x3 Limitations: no limitations HENMT: Head: normal to inspection Mouth: Yes Normal oral and palatal mucosa present, Yes lip normal, Yes tongue normal and Yes moist mucous membranes Eyes: General: appearance normal, both eyes and all related structures Alignment and Position: alignment normal Neck: Neck: normal visual inspection, full ROM, no lymphadenopathy and no meningeal signs Chest: Chest palpation & inspection: normal inspection of the chest Resp: Effort & Inspection: normal respiratory effort and able to speak in complete sentences Auscultation: clear to auscultation bilaterally, no crackles, no rales, no rhonchi and no wheezes Cardio: Rate: regular rate GI: GI Palp: No abdominal tenderness : General: Yes no CVA tenderness Skin: General skin exam: normal color and no rashes or lesions noted Neuro: General: patient oriented x3, gait normal, moves all extremities and no meningeal signs Cognition (Neuro): normal cognition Speech: normal speech Gait exam (Neuro): Normal gait present Extrem: General: normal to inspection, full ROM, capillary refill normal and normal gait Psych: Appearance: grossly normal and well kempt Mental Status: mental status grossly normal Speech and movement: Normal speech and movement present and Clear speech present Affect: normal affect Attitude: cooperative Course Course Level of Care: Express Care Visit Vital Signs Vital signs: Vital Signs Temperature 97.6 F 11/10/24 14:04 Pulse Rate 96 11/10/24 14:04 Respiratory Rate 16 11/10/24 14:04 Blood Pressure 135/90 11/10/24 14:04 Pulse Oximetry 99 11/10/24 14:04 Oxygen Delivery Room Air 11/10/24 14:04 Temperature 97.6 F 11/10/24 14:04 Pulse Rate 96 11/10/24 14:04 Respiratory Rate 16 11/10/24 14:04 Blood Pressure 135/90 11/10/24 14:04 Pulse Oximetry 99 11/10/24 14:04 Oxygen Delivery Room Air 11/10/24 14:04 Reviewed Medical Decision Making [facility] Narrative Medical decision making narrative: Patient sitting comfortably in exam room. Nontoxic, vitals stable. Patient in no acute distress Patient presents with concerns for UTI. Reports history of UTI. Patient with +1 leukocytes. Will cover with antibiotic. Patient states that she can take Keflex, states that she can only swallow liquid cannot take pills Patient appropriate for outpatient treatment with close follow-up Discharge instructions reviewed with patient, as well as provided in writing per nursing staff. The instructions also include specific and strict return/GO TO THE ER as well as f/u information. All questions have been answered, and the patient deny any further questions with discharge and discharge plan. Some parts of this dictation were generated by voice recognition software and may contain typographical and/or grammatical inaccuracies. Differential Diagnosis Differential Diagnosis: UTI, abdominal pain, dysuria Medical Records Medical records reviewed: Yes I reviewed the external patient's medical records. Vital Signs Vital Signs: Vital Signs Temperature 97.6 F 11/10/24 14:04 Pulse Rate 96 11/10/24 14:04 Respiratory Rate 16 11/10/24 14:04 Blood Pressure 135/90 11/10/24 14:04 Pulse Oximetry 99 11/10/24 14:04 Oxygen Delivery Room Air 11/10/24 14:04 Temperature 97.6 F 11/10/24 14:04 Pulse Rate 96 11/10/24 14:04 Respiratory Rate 16 11/10/24 14:04 Blood Pressure 135/90 11/10/24 14:04 Pulse Oximetry 99 11/10/24 14:04 Oxygen Delivery Room Air 11/10/24 14:04 Reviewed Lab Data Lab results reviewed: Yes I reviewed the patient's lab results. Labs: Lab Results 11/10/24 Range/Units 14:10 POC Urine Color Yellow POC Urine Clarity Cloudy POC Urine pH 8.5 POC Ur Specif [place] 1.015 POC Urine Protein Negative (Negative) POC Ur Glucose (UA) Negative (Negative) POC Urine Ketones Negative (Negative) POC Urine Blood Negative (Negative) POC Urine Nitrite Negative (Negative) POC Urine Bilirubin Negative (Negative) POC Urine Urobilinogen 1.0 POC U Leukocyte Esteras 1+ (Negative) Reviewed Critical Care Time Critical Care Time Critical Care Time: No Discharge Plan Discharge Clinical Impression: Urinary tract infection Qualifiers: Urinary tract infection type: acute cystitis Hematuria presence: without hematuria Qualified Code(s): N30.00 - Acute cystitis without hematuria Patient Disposition: Home Condition: Stable Instructions: Antibiotic Form, Urinary Tract Infection in Women (ED) Additional Instructions: Increased water intake Take Tylenol as needed for pain Take antibiotic as prescribed Today your urine dip showed a probability of a UTI. You have been prescribed an antibiotic. Your urine will be sent to our lab for a culture. If at that time a bacteria grows that is not covered by the antibiotic prescribed you will be notified. Follow-up with primary care For new or worsening symptoms go directly to the emergency room Patient Language: Divehi Prescriptions: New cephalexin 250 mg/5 mL suspension for reconstitution 500 mg PO Q12H 5 Days Qty: 100 0RF No Action albuterol sulfate [ProAir HFA] 90 mcg/actuation HFA aerosol inhaler INHALATION Follow-up/Referrals: PHYSICIAN,FILM RENTAL CLERK [Primary Care Provider, Internal Medicine] Time of Disposition: 14:31
[2024-11-10 14:27] LABS: EDUAAPPEAR Cloudy; EDUABILI Negative (Negative); EDUABLOOD Negative (Negative); EDUACOLOR1 Yellow; EDUAGLUCOSE Negative (Negative); EDUAKETONE Negative (Negative); EDUALEUKO 1+ (Negative); EDUANITRATE Negative (Negative); EDUAPH 8.5; EDUAPROTEIN Negative (Negative); EDUASPGRAVITY 1.015; EDUAUROBILI 1.0
== END 2024-11-10 14:32 | disposition home or self-care (01) ==
PROVIDERS: Emergency Provider Nurse Practitioner
DX: N30.00 Acute cystitis without hematuria (principal); Z87.891 Personal history of nicotine dependence; J45.909 Unspecified asthma, uncomplicated; K21.9 Gastro-esophageal reflux disease without esophagitis
CPT/HCPCS: 81003; 87086; 87186; 99213; G0463

== ENCOUNTER 2024-11-12 07:26 | Emergency (ER) | payer OTHER, SELFPAY ==
[2024-11-12 07:28] VITALS: BP 144/94; PULSE 108; RESP 16; TEMP 36.6; O2SAT 100
--- NOTE | 2024-11-12 07:38 | ECG_ITS ---
Test Date: 2024-11-12 07:45:33 Measurements Intervals [place] Rate: 85 P: 34 OR: 169 QRS: 50 QRSD: 86 T: 15 QT: 339 QTc: 405 Interpretive Statements SINUS RHYTHM NORMAL ELECTROCARDIOGRAM Compared to ECG 06/26/2024 20:17:10 No significant changes Electronically Signed On 11-12-2024 16:16:25 CDT by Priyank De Jesus M.D.
[2024-11-12 07:53] LABS: BEDSIDEPREGUCG Negative (Negative)
[2024-11-12 07:57] LABS: Hematocrit 44.1 % (37.0-47.0); Hemoglobin 13.5 g/dL (12.0-15.0); Immature Granulocyte Percent A 0.6 % (0-0.5); Lymphocytes Absolute Auto 4.11 K/mm3 (0.9-3.2); Mean Corpuscular HGB Conc 30.6 g/dl (32-36); Mean Corpuscular Hemoglobin 25.1 pg (26-34); Mean Corpuscular Volume 82.1 fl (80-100); Nucleated Red Blood Cells Absolute Auto 0.000 K/mm3 (0.0-0.012); Nucleated Red Blood Cells Perc 0.0 % (0.0-0.2); Platelet Count Result 303 k/mm3 (150-375); Red Blood Count 5.37 M/mm3 (4.2-5.4); White Blood Count 10.0 K/mm3 (4.5-10.0)
--- OUTSIDE RECORDS SUMMARY | 2024-11-12 07:57 | XMS_ITS | Clinical Summary ---
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
--- OUTSIDE RECORDS SUMMARY | 2024-11-12 07:57 | XMS_ITS | Clinical Summary ---
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 Gender Identity Not on file Sexual Orientation [...] 10:33 AM CDT Height 157.5 cm (5' 2) 07/10/2017 10:33 AM CDT Body Mass Index 21.03 07/10/2017 10:33 AM CDT Plan of Treatment Health Maintenance Due Date Last Done Comments Hepatitis C Virus (HCV) Screening 1994 TdaP Immunization 1994 Hepatitis B Immunization (1 of 3 - 19+ 3-dose series) 2013 Human Papillomavirus (HPV) Immunization (2 - 3-dose series) 07/23/2014 06/25/2014 Pap Smear 09/07/2015 Cervical Cancer Screening (CCS) 2024 HPV/Cotest 2024 Influenza Immunization (#1) 2024 SARS-COV-2 Immunization (1 - season) 2024 Respiratory Syncytial Virus (RSV) Immunization (Adult) (1 - 1-dose 75+ series) 2069 Meningococcal Immunization (ACWY) Aged Out No longer eligible based on patient's age to complete this topic Pneumococcal Immunization Combined Aged Out No longer eligible based on patient's age to complete this topic Rotavirus Immunization Aged Out No lo nger eligible based on patient's age to complete this topic Insurance MEDICAID [employer] Care Teams Diversified Crops Farmworker Relationship Specialty Start Date End Date Rosy Brannon, BEACH LIFEGUARD, REPAIR TECH [address] [place] [address] PCP - General Certified Nurse Practitioner 07/10/17
--- OUTSIDE RECORDS SUMMARY | 2024-11-12 07:57 | XMS_ITS | Clinical Summary ---
Author Organization [facility] Address [address] [place] [address] Care Team Providers Care Seaman Name Role Phone Koko Rodriguez MD Primary Care Provider [phone] [facility],non-owned Affiliates and Associated Physician Practices is amultiple site organization consisting of ambulatory clinics and hospital sitesin [place], [place], [place] and [place]. This disclosure is being madepursuant to the Care Everywhere program and may not contain all information available regarding this patient. Last updated 17.[facility] Allergies Active Allergy Reactions Criticality Noted Date [...] (one) tablet by mouth every morning Active Family History Medical History Relation Name Comments Cancer - Breast Other Relation Name Status Comments Other Maternal great aunt Paternal Grandfather Alive Paternal Grandmother Social History Tobacco Use Types Packs/Day Years Used Date Smoking Tobacco: Never Assessed Comments No Sex and Gender Information Value Date Recorded Sex Assigned at Female 03/04/2024 6:36 AM PERLITE GRINDER Legal Sex Female 9:54 AM PERLITE GRINDER Gender Identity Female 03/04/2024 6:36 AM PERLITE GRINDER Sexual Orientation Bisexual 03/04/2024 6: 36 AM PERLITE GRINDER Last Filed Vital Signs Vital Sign Reading Time Taken Comments Blood Pressure 120/85 06/12/2024 8:42 AM CDT Pulse 110 06/12/2024 8:42 AM CDT Temperature 36.1 C (97 F) 06/12/2024 8:42 AM CDT Respiratory Rate - - Oxygen Saturation 97% 06/12/2024 8:42 AM CDT Inhaled Oxygen Concentration - - Weight 73.9 kg (163 lb) 06/12/2024 8:42 AM CDT Height 157.5 cm (5' 2) 06/12/2024 8:42 AM CDT Body Mass Index 29.81 06/12/2024 8:42 AM CDT Plan of Treatment Health Maintenance Due Date Last Done Comments HIV SCREENING 2009 HEPATITIS C SCREENING 09/01/2012 DTAP/TDAP/TD VACCINES (1 - Tdap) 2013 HEPATITIS B VACCINE (1 of 3 - 19+ 3-dose series) 2013 PAP SMEAR 09/07/2015 HPV VACCINE (1 - 3-dose SCDM series) 2021 COVID-19 VACCINE (1 - 2023-2 5 season) 2023 DEPRESSION SCREENING 03/05/2024 INFLUENZA VACCINE (#1) 2024 12/26/2017 ZOSTER VACCINE (1 of 2) 2044 HIB [...] patient's age to complete this topic Insurance [facility] Care Teams Seaman Relationship Specialty Start Date End Date Koko Rodriguez MD [address] [place] [address] PCP - General Obstetrics and Gynecology 01/30/24
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
[2024-11-12 08:06] LABS: Add Urine Microscopic? YES; Appearance Urine Cloudy (Clear); Glucose Urine UA Negative (Negative); Leukocyte Esterase Ur 3+ LEU/UL (Negative); Nitrate Urine Negative (Negative); Non Pathogenic Casts 0-2; Specific Grav Ur 1.010 (1.001-1.035)
[2024-11-12 08:12] LABS: Alanine Aminotransferase 26 U/L (6-35); Albumin Level 4.4 g/dL (3.5-5.1); Alkaline Phosphatase 109 U/L (38-126); Anion Gap 8 mmol/L (4-12); Aspartate Amino Transferase 34 U/L (14-36); Bilirubin,Total 0.4 mg/dL (0.2-1.3); Blood Urea Nitrogen 8 mg/dL (7-17); Calcium 9.1 mg/dL (8.4-10.2); Carbon Dioxide 27 mmol/L (22-30); Chloride 103 mmol/L (98-107); Estimated CRCL calculation 90 ml/min; Estimated Glomerular Filt Rate > 60; Glucose 101 mg/dL (65-110); Potassium 3.8 mmol/L (3.4-5.0); Sodium 138 mmol/L (137-145); Total Protein 8.3 g/dL (6.3-8.2)
[2024-11-12 08:48] LABS: Influenza A QL RT-PCR Negative (Negative); Influenza B QL RT-PCR Negative (Negative); RSV RNA, RT-PCR Negative (Negative); SARS-CoV-2 RNA PCR Negative (Negative); Thyroid Stimulating Hormone 0.925 uIU/mL (0.465-4.680)
[2024-11-12 08:55] LABS: Acetaminophen < 10 ug/mL (10-30); Salicylate < 1.0 mg/dL (2-20)
[2024-11-12 09:19] LABS: Cannabinoid Screen Urine Negative (Negative)
[2024-11-12] MEDS: cefTRIAXone 1 GM VIAL 0.5 GM IM (11:30)
[2024-11-12 11:31] VITALS: BP 138/82; PULSE 88; RESP 20; TEMP 36.6; O2SAT 98
[2024-11-12] MEDS: DOXYCYCLINE HYCLATE 100 MG TABLET PO (11:31)
--- NOTE | 2024-11-12 11:32 | PC.NURSE ---
Crisis made safety plan with pt
== END 2024-11-12 11:33 | disposition home or self-care (01) ==
PROVIDERS: Emergency Provider Emergency Medicine
DX: R45.851 Suicidal ideations (principal); A74.9 Chlamydial infection, unspecified; N39.0 Urinary tract infection, site not specified; Z11.52 Encounter for screening for COVID-19; J45.909 Unspecified asthma, uncomplicated; K21.9 Gastro-esophageal reflux disease without esophagitis; F32.A Depression, unspecified; F41.9 Anxiety disorder, unspecified; Z87.442 Personal history of urinary calculi; Z87.440 Personal history of urinary (tract) infections; Z87.01 Personal history of pneumonia (recurrent); Z86.2 Personal history of diseases of the blood and blood-forming organs and certain disorders involving the immune mechanism; Z87.891 Personal history of nicotine dependence
CPT/HCPCS: 36415; 80053; 80143; 80179; 80307; 81001; 81025; 82077; 84443; 85025; 87491; 87591; 87637; 93005; 96372; 99284; A9270; J0696; J2003

== ENCOUNTER 2024-12-02 11:10 | Outpatient (CLI) | payer OTHER, SELFPAY ==
--- OUTSIDE RECORDS SUMMARY | 2024-12-02 11:44 | XMS_ITS | Data Portability ---
Author Organization [place] [facility] [employer], Main Office Address [address] [place] [address] Assessment Encounter Date Assessment Date Assessment LastModified [...] had a 5 minute TeleMedicine consultation via [employer] to discuss the following: Not available 06/14/2023 11:44:46 Plan of Treatment Reminders Order Date Submit Date Provider Last Modified By Organization Details Last Modified Time Details Appointments None recorded. Lab vitamin D, 25-hydroxy, total, serum 2023 024 [email or web address] 4 [facility] (Lab), [address] [place], [address], 4 14:09:44 vitamin B12 + folate, serum or blood 2023 024 [email or web address] 4 [facility] ([facility]), [address] [place], [address], 4 14:10:03 CBC 2023 024 [email or web address] 4 [facility] ([facility]), [address] [place], [address], 4 14:08:24 iron + TIBC + ferritin, serum 2023 024 [email or web address] 4 [facility] ([facility]), [address] [place], [address], 4 14:08:44 test, urine 2023 024 BUDDY [facility], [address] [place] [address] [address], [place], [address], 4 14:09:10 prolactin, serum 2022 023 [email or web address] [facility] (Lab), [address] [place], [address], 3 12:39:48 Referral psychiatris t referral - Please call patient to schedule an appointment . 2023 024 [email or web address] [facility], [address] [place] [address], [place], [address], 4 13:40:28 Procedures removal impacted cerumen using irrigation/ lavage (PROC) 2023 024 [email or web address] Not available 4 07:49:00 Surgeries None recorded. Imaging MRI, pituitary, w/wo contrast - *Please call pt to schedule* 2022 [email or web address] [place] [address], [address] [facility] [address], [place], [address], 3 09:31:41 Medication Orders cephalexin 250 mg/5 mL oral suspension 2023 024 [facility] #[id number], [address], [place], [place], [id number], 4 11:46:54 ciprofloxac in 0.3 %-dexametha sone 0.1 % ear drops,suspe nsion 2023 024 [facility] #47604, [address], [place], [place], [id number], 4 11:19:22 sertraline 50 mg tablet 2023 024 [facility], [address], [place], [place], [id number], 4 10:50:54 fluoxetine 40 mg capsule 2022 023 [email or web address] [facility]69749, [address], [place], [place], [id number], 3 14:42:58 buspirone 10 mg tablet 2022 023 [facility], [address], [place], [place], [id number], 3 10:49:13 Patient TargetsNo targets recorded. Patient Instructions Encounter Date Encounter Id Patient Instructions Last Modified By Organization Details Last Modified Time 06/14/2023 [id number] Due to the COVID-19 (Novel Coronavirus) pandemic, it is within this context (and with the understanding that this method of patient encounter is in the patient s best interest as well as the health and safety of other patients and the public) that [facility] is being provided for this patient encounter rather than a akhv-xc-rbne visit. This patient encounter is appropriate at [...] schedule an appointment. Referring Physician: Vel Ewing, [facility] Medicine, Encounter Date: 04/25/2023 Results Created Date Observation Date Name Description Value Unit Range Abnormal Flag Note LastModifiedBy Organization Detail LastModifiedTime 10/12/1910/11/2022 RPR SCREE N RPR NON-RE ACTIVE nonrea ctive Not Available [facility] (Lab) [address] [place], [address], 10/12/2022 00:49:19 10/12/1910/12/2022 HIV COMBO : HIV 1/2 AB,P2 4 AG HIV combo assay NON-RE ACTIVE nonrea ctive The HIV combo test scree ns for HIV-1 , HIV-2 , HIV p24 Ag, and HIV group O. Any react amilcar scree n resul t will be sent for PCR confi rmato ry testi ng. Not Available [facility] (Lab) [address] [place], [address], 10/12/2022 17:24:27 10/12/1910/12/2022 HIV COMBO : HIV 1/2 AB,P2 4 AG signal/cutof f 0.10 0.00-0 .99 Not Available [facility] (Lab) [address] [place], [address], 10/12/2022 17:24:27 10/12/1910/14/2022 CT, NG, TRICH VAG BY CHEPE chlamydia by CHEPE Negati ve negati ve Not Available [facility] (Lab) [address] [place], [address], 10/14/2022 11:12:35 10/12/1910/14/2022 CT, NG, TRICH VAG BY CHEPE gonococcus by CHEPE Negati ve negati ve Not Available [facility] (Lab) [address] [place], [address], 10/14/2022 11:12:35 10/12/1910/14/2022 CT, NG, TRICH VAG BY CHEPE trichomonas vaginalis, CHEPE Positi ve negati ve abnormal Perfo rmed at: =[facility] [place] [address] , [place] [address] Lab Direc tor: Compa pratt MD, Phone : [phone] Not Available [facility] (Lab) [address] [place], [address], 10/14/2022 11:12:35 11/02/1911/03/2022 PROLA CTIN prolactin 26.3 NG/mL 4.8-23 .3 high Perfo rmed at: [facility] [address] [place] [address] Lab Direc tor: Jeffrey stanley PhD, Phone : [phone] Not Available [facility] ([facility]) [address] [place], [address], 11/03/2022 09:13:17 02/03/2002/02/2023 urina lysis , dipst ick Leukocytes (reference range: negative yesi/ l) Trace Not Available [address], [address], 02/02/2023 09:58:26 02/03/20 23 02/02/2023 urina lysis , dipst ick Nitrite (reference rage: negative mg/dl) negati ve Not Available [address], [address], 02/02/2023 09:58:26 02/03/20 23 02/02/2023 urina lysis , dipst ick Urobilinogen (reference range: 0.2-1 mg/dl) 0.2 Not Available [address], [place], [address], 02/02/2023 09:58:26 02/03/20 23 02/02/2023 urina lysis , dipst ick Protein (reference range: negative mg/dl) Negati ve Not Available [address], [place], [address], 02/02/2023 09:58:26 02/03/2002/02/2023 urina lysis , dipst ick pH (reference range: 5-7) 5.5 Not Available [address], [place], [address], 02/02/2023 09:58:26 02/03/2002/02/2023 urina lysis , dipst ick Blood (reference range: negative Luisito/ l) Non-He molyze d: Trace Not Available [address], [place], [address], 02/02/2023 09:58:26 02/03/2002/02/2023 urina lysis , dipst ick Specific [place] (reference range: 1.005-1.030) 1.030 Not Available [address], [place], [address], 02/02/2023 09:58:26 02/03/20 23 02/02/2023 urina lysis , dipst ick Ketone (reference range: negative mg/dl) Negati ve Not Available [address], [place], [address], 02/02/2023 09:58:26 02/03/20 23 02/02/2023 urina lysis , dipst ick Bilirubin (reference range: negative mg/dl) Negati ve Not Available [address], [place], [address], 02/02/2023 09:58:26 02/03/20 23 02/02/2023 urina lysis , dipst ick Glucose (reference range: negative mg/dl) Negati ve Not Available [address], [place], [address], 02/02/2023 09:58:26 02/03/20 23 02/02/2023 urina lysis , dipst ick Appearance Cloudy Not Available [address], [place], [address], 02/02/2023 09:58:26 02/03/2002/02/2023 urina lysis , dipst ick Color Dark Yellow Not Available [address], [place], [address], 02/02/2023 09:58:26 04/25/19 24 04/25/2023 pregn cyn test, urine HCG negati ve Not Available [address], [place], [address], 04/25/2023 10:32:02 04/25/19 24 04/25/2023 pregn cyn test, urine HCG Negati ve Not Available [address], [place], [address], 04/25/2023 10:32:02 05/03/19 24 05/03/2023 urina lysis , dipst ick Leukocytes (reference range: negative yesi/ l) Trace Not Available [address], [place], [address], 05/02/2023 14:01:54 05/03/19 24 05/03/2023 urina lysis , dipst ick Nitrite (reference rage: negative mg/dl) negati ve Not Available [address], [place], [address], 05/02/2023 14:01:54 05/03/19 24 05/03/2023 urina lysis , dipst ick Urobilinogen (reference range: 0.2-1 mg/dl) 0.2 Not Available [address], [place], [address], 05/02/2023 14:01:54 05/03/19 24 05/03/2023 urina lysis , dipst ick Protein (reference range: negative mg/dl) Negati ve Not Available [address], [place], [address], 05/02/2023 14:01:54 05/03/19 24 05/03/2023 urina lysis , dipst ick pH (reference range: 5-7) 5.5 Not Available [address], [place], [address], 05/02/2023 14:01:54 05/03/19 24 05/03/2023 urina lysis , dipst ick Blood (reference range: negative Luisito/ l) Non-He molyze d: Trace Not Available [address], [place], [address], 05/02/2023 14:01:54 05/03/19 24 05/03/2023 urina lysis , dipst ick Specific [place] (reference range: 1.005-1.030) 1.025 Not Available [address], [place], [address], 05/02/2023 14:01:54 05/03/19 24 05/03/2023 urina lysis , dipst ick Ketone (reference range: negative mg/dl) Negati ve Not Available [address], [place], [address], 05/02/2023 14:01:54 05/03/19 24 05/03/2023 urina lysis , dipst ick Bilirubin (reference range: negative mg/dl) Negati ve Not Available [address], [place], [address], 05/02/2023 14:01:54 05/03/19 24 05/03/2023 urina lysis , dipst ick Glucose (reference range: negative mg/dl) Negati ve Not Available [address], [place], [address], 05/02/2023 14:01:54 05/03/19 24 05/03/2023 urina lysis , dipst ick Appearance Cloudy Not Available [address], [place], [address], 05/02/2023 14:01:54 05/03/19 24 05/03/2023 urina lysis , dipst ick Color Yellow Not Available [address], [place], [address], 05/02/2023 14:01:54 07/11/19 24 07/12/2023 HCG, TOTAL [...] has not been clear ed or appro dusitn by the FDA or the [facility] actur er of the assay . Not Available [facility] [address] [place], [address], 07/12/2023 07:15:02 01/27/20 23 01/26/2023 XR, chest No observ ation record ed. [email or web address] [address], [place], [address], 01/29/2023 14:15:13 02/09/20 23 02/08/2023 CT, abdom en + pelvi s, w/o contr ast No observ ation record ed. [email or web address] [address], [place], [address], 02/09/2023 11:51:44 03/29/19 24 03/29/2023 CT, abdom en + pelvi s, w/o contr ast No observ ation record ed. [email or web address] [address], [place], [address], 03/30/2023 09:02:04 03/29/19 24 03/29/2023 XR, chest No observ ation record ed. [email or web address] [address], [place], [address], 03/30/2023 09:02:15 09/29/19 24 09/29/2023 CT, abdom en + pelvi s, w/wo contr ast No observ ation record ed. [address], [place], [address], 10/23/2023 19:00:30 10/15/19 24 10/15/2023 XR, chest , 2 view No observ ation record ed. [address], [place], [address], 12/13/2023 15:26:20 11/21/19 24 11/21/2023 US, pelvi s, compl ete No observ ation record ed. [email or web address] [address], [place], [address], 11/28/2023 11:12:16 06/28/19 25 06/26/2024 XR, chest , 2 view No observ ation record ed. [email or web address] [facility] [address] [facility] [address], [place], [address], 06/30/2024 09:47:01 Result Notes None recorded. Problems Name Problem SNOMED Code Status Onset Date Resolution Date Notes Provider Name and Address Organization Details Recorded Time Breast lump symptom Active Not Available [facility] 3 04:51:06 Screening - NAD 186742694 Active Not Available [facility] 3 04:51:06 Suppressio n of menstruati on Active Not Available [facility] 3 04:51:06 Anemia 608084855 Active Not Available [facility] 3 04:51:06 Orthostati c hypotensio n 66253032 Active Not Available [facility] 3 04:51:07 Menometror rhagia 984236201 Active Not Available [facility] 3 04:51:07 Bronchitis 72835456 Active Not Available [facility] 3 04:51:07 Depressive disorder 59806656 Active Not Available [facility] 3 04:51:07 Bacterial vaginosis 483645415 Active Not Available [facility] 3 04:51:07 Streptococ akash sore throat 35520342 Active Not Available [facility] 3 04:51:07 Pain of joint 01535517 Active Not Available [facility] 3 04:51:07 depression 64743016 Active Not Available [facility] 3 04:51:07 Urinary tract infectious disease 04412699 Active Not Available [facility] 3 04:51:07 Dyspareuni a 62777774 Active Not Available [facility] 3 04:51:07 Candidiasi s of vagina 07880505 Active Not Available [facility] 3 04:51:07 Pain of elbow region 85489021 Active Not Available [facility] 3 04:51:07 Irregular periods 22479572 Active Not Available [facility] 3 04:51:07 Infection of tooth 958558174 Active 2022 MARTELL Marmolejo [address], [place], [address] , [employer] [facility] 3 09:18:28 Abnormal vaginal bleeding 283033141 Active 2022 VIPUL Jackson [address], [place], [address] , [employer] [facility] 3 22:03:45 Vaginitis 89696363 Active 2022 VIPUL Jackson [address], [place], [address] , [employer] [facility] 3 17:00:54 Anxiety 22764792 Active 2022 VIPUL Jackson [address], [place], [address] , [employer] [facility] 3 08:07:13 Mixed anxiety and depressive disorder 398618023 Active 2022 VIPUL Jackson [address], [place], [address] , [employer] [facility] 3 14:43:03 Acute mastitis 98095328 Active 2022 VIPUL Jackson [address], [place], [address] , [employer] [facility] 3 11:07:50 Candidiasi s of skin 13110162 Active 2022 VIPUL Jackson [address], [place], [address] , [employer] [facility] 3 14:56:56 Trichomona l vaginitis 056962471 Active 2022 VIPUL Jackson [address], [place], [address] , [employer] [facility] 3 13:01:29 Discharge from nipple 03898386 Active 2022 VIPUL Jackson [address], [place], [address] , [facility] 3 10:34:56 Hyperprola ctinemia 409163703 Active 2022 VIPUL Jackson [address], [place], [address] , [facility] 3 10:37:45 Pain of right elbow joint 2579177073581 9109 Active 2022 Yohana Alberto MD [address], [place], [address] , [facility] 3 18:08:49 Tooth disorder 903018821 Active 2022 VIPUL Jackson [address], [place], [address] , [facility] 3 11:51:49 Mastodynia of bilateral breasts 9503981217292 9109 Active 2022 Yohana Alberto MD [address], [place], [address] , [facility] 3 10:04:00 Dysuria 75927564 Active 2022 Estella Ruiz LPN null, [facility] 3 09:58:28 Acute urinary tract infection 207905823 Active 2022 JUANCARLOS Graham [address], [place], [address] , [facility] 3 10:46:30 Dysmenorrh ea 443486899 Active [address] GrahamC [address], [place], [address] , [facility] 4 10:31:42 Impacted cerumen in right ear 8158093894004 103 Active 2023 Vel Knowlesd [facility] [address], [place], [address] , [employer] 4 10:34:05 Acute otitis externa 82524372 Active 2023 Vel Knowlesd [facility] [address], [place], [address] , [employer] 4 11:08:56 Vitamin D deficiency 15335493 Active 2023 Vel Knowlesd [facility] [address], [place], [address] , [employer] 4 07:59:10 Dental abscess 420986118 Active 2023 Vel Knowlesd [facility] [address], [place], [address] , [employer] 4 11:40:35 Amenorrhea 84218517 Active 2023 Yohana Alberto MD [address], [place], [address] , [employer] 4 16:04:41 Hypoglycem ia 538195694 Active 2023 Vel Knowlesd [facility] [address], [place], [address] , [employer] 4 14:16:00 Problem Notes None recorded. Procedures Surgical History Date Name Laterality Status Provider Name and Address Organization Details Recorded Time 4 Ear Irrigation completed Vel KnowlesADAM powellP-C [address], [place], [address], [employer] 04/25/2023 10:48:45 9 Date of Last Pap Smear completed Not Available [facility] 05/03/2022 04:43:00 Imaging Results None recorded. Procedure Notes None recorded. Medical Equipment None Reported. Allergies Allergen ID Allergen Name Allergen Category Reaction Reaction Severity Criticality Documentation Date Start Date Code Code System Note Provider Name and Address Organization Details Recorded Time 78592 escitalop abel Not available hives Not available Not available 08/10/2022 52980 8 RxNorm VIPUL Jackson [address], [place], [address] , [facility] [employer] [facility] 3 14:31:25 7705 Iodinated contrast media (substanc e) medicatio n rash Not available Not available 05/03/2022 75595 2004 SNOMED Not Available [facility] 3 05:02:41 7707 ibuprofen medicatio n Not available Not available Not available 05/03/2022 5640 RxNorm Not Available [facility] 3 05:02:41 7709 clindamyc in Not available Not available Not available Not available 05/03/2022 2582 RxNorm Not Available [facility] 3 05:02:41 7712 Bactrim medicatio n hives Not available Not available 05/03/2022 02490 9 RxNorm Not Available [facility] 3 05:02:41 7713 aspirin medicatio n Not available Not available Not available 05/03/2022 1191 RxNorm Not Available [facility] 3 05:02:42 7715 amoxicill in medicatio n Not available Not available Not available 05/03/2022 723 RxNorm unkno wn react ion as a child Not Available [facility] 3 05:02:42 Medications Name Sig Start Date [...] Not Available Not Available No t Available Lidocaine Viscous 2 % mucosal solution [...] gram) vaginal gel INSERT 1 APPLICAT ORFUL IN THE VAGINA AT BEDTIME active Not Available Not Available No t [...] Available Not Available No t Available OneTouch Ultra Test strips USE DAILY AND NEEDED [...] completed Not Available Not Available Not Available sulfameth oxazole 200 mg-trimet hoprim 40 mg/5 mL oral suspensio n SHAKE LIQUID AND TAKE 20 ML BY MOUTH TWICE DAILY FOR 7 DAYS active Not Available Not Available No t Available sertralin e 25 mg tablet TAKE [...] 1 TABLET BY MOUTH THREE TIMES DAILY DIRECTED active Not Available Not Available [...] TABLET ON THE TONGUE EVERY 8 HOURS active Not Available Not Available No [...] TAKE 1 TABLET BY MOUTH EVERY DAY DIRECTED active Not Available Not Available No [...] completed Not Available Not Available Not Available quetiapin e 50 mg tablet TAKE 1 TABLET BY MOUTH DAILY AT BEDTIME active Not Available Not Available No t Available cholecalc iferol (vitamin D3) 50 mcg [...] in Arterial blood by Pulse oximetry Systolic And Diastolic Provider Name and Address Organization Details Last Updated DateTime 4 157.48 cm 29.1 kg/m2 75143.1 9 g 97.5 [degF] 105 /min 98 % 98 % 122/86 mm[Hg] Claudia Rizvi RN [facility] [employer] [facility] 4 10:21:17 Date Recorded Body height Body mass index (BMI) Body weight Provider Name and Address Organization Details Last Updated DateTime 06/14/2023 157.48 cm 27.4 kg/m2 57698.86 g Letha Marcano MA [facility] 06/14/2023 11:35:58 Date Recorded Body height Body mass index (BMI) Body weight Body temperature Heart rate Oxygen saturation Oxygen saturation in Arterial blood by Pulse oximetry Systolic And Diastolic Provider Name and Address Organization Details Last Updated DateTime 3 157.48 cm 27.8 kg/m2 08978.0 4 g 95.5 [degF] 118 /min 99 % 99 % 110/70 mm[Hg] Jennie Camejo RN [facility] 3 10:26:41 Date Recorded Body height Provider Name an d Address Organization Details Last Updated DateTime 02/02/2023 157.48 cm Estella Ruiz LPN [facility] 02/02/2023 10:33:55 Social History Question Answer Notes LastModified by Organizat ion Details LastModified Time Tobacco Smoking Status Former Smoker 1 cig a day at work Not Available [facility] 05/03/2022 04:41:40 Do You Have An Advance Directive? No [id number] Information not available 05/03/2022 What Is Your Level Of Caffeine Consumption? Heavy Information not available 11/09/2023 How Much Tobacco Do You Chew? None MIGRATION.80894 [id number] Information not available 05/03/2022 In The 14 Days Before Symptom Onset, Have You Had Close Contact With A Laboratory-confi rmed COVID-19 While That Case Was Ill? No MIGRATION.47525 [id number] Information not available 05/03/2022 In The 14 Days Before Symptom Onset, Have You Had Close Contact With A Person Who Is Under Investigation For COVID-19 While That Person Was Ill? No MIGRATION.59890 83568 Information not available 05/03/2022 What Type Of Diet Are You Following? REGULAR MIGRATION.55710 82547 Information not available 05/03/2022 Which Illicit Or Recreational Drugs Have You Used? No MIGRATION.17222 36414 Information not available 05/03/2022 Are There Any Guns Present In Your Home? Yes MIGRATION.61051 08242 Information not available 05/03/2022 Where Do You Live? [place]House MIGRATION.24993 61449 Information not available 05/03/2022 What Was The Date Of Your Most Recent Tobacco Screening? 09/12/2018 MIGRATION.26478 74837 Information not available 05/03/2022 Do You Have Any Pets? No MIGRATION.77855 25809 Information not available 05/03/2022 What Is Your Relationship Status? Single MIGRATION.45532 80033 Information not available 05/03/2022 Do You Use Your Seat Belt Or Car Seat Routinely? Yes MIGRATION.33405 92253 Information not available 05/03/2022 Do You Have Smoke And Carbon Monoxide Detectors In Your Home? Yes MIGRATION.85761 21226 Information not available 05/03/2022 Are You Passively Exposed To Smoke? No MIGRATION.30778 93167 Information not available 05/03/2022 Are There Any Smokers In Your House? No MIGRATION.70976 21478 Information not available 05/03/2022 How Much Tobacco Do You Smoke? 0.25 PPD Information not available 11/09/2023 Do You Participate In Social Media? Yes MIGRATION.96761 47261 Information not available 05/03/2022 Do You Use Sunscreen Routinely? No MIGRATION.92256 94727 Information not available 05/03/2022 Has Tobacco Cessation Counseling Been Provided? No MIGRATION.99577 79511 Information not available 05/03/2022 How Many Years Have You Smoked Tobacco? 1 MIGRATION.74461 33750 Information not available 05/03/2022 Are You Currently In School? No MIGRATION.37825 59179 Information not available 05/03/2022 Do You Have Any Dietary Restrictions? No MIGRATION.05825 85899 Information not available 05/03/2022 Sex: Female Functional Status Question Answer Note LastModified by [employer] Details LastModified Time Do you use any illicit or recreational drugs? No MIGRATION.[id number] 6314 Information not available 05/03/2022 Do you or have you ever used any other forms of tobacco or nicotine? No MIGRATION.599875 4922 Information not available 05/03/2022 What is your level of alcohol consumption? Heavy Information not available 11/09/2023 Do you or have you ever used smokeless tobacco? 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 Never used electronic cigarettes MIGRATION.711445 5905 Information not available 05/03/2022 What is your exercise level? Occasional [id number] Information not available 05/03/2022 Mental Status Question Answer Note LastModified by [employer] Details LastModified Time Do you feel stressed (tense, restless, nervous, or anxious, or unable to sleep at night)? [id number] Information not available 05/03/2022 Family History Relationship Description Onset Age of this Age Resolved Age Notes LastModified by Organization Details LastModified Time Paternal Grandmother Diabetes mellitus [id number] Not available 05/03/2022 04:43:07 Paternal Grandmother Hypertensive disorder [id number] Not available 05/03/2022 04:43:07 Daughter Seizure [id number] Not available 05/03/2022 04:43:07 Medical History Condition Response HEADACHES/MIGRAINES Y ANXIETY DISORDER Y ANEMIA/BLOOD DISORDER Y OTHER # 1 Y URINARY/BLADDER/KIDNEY PROBLEMS Y DEPRESSION (INCLUDING POST ) Y HEARTBURN / REFLUX Y Gynecological History Statement/Question Response Abnormal Pap N Date of Last Pap Smear 10/15/2018 Current Control Method 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 a Age at Menarche 8 Date of LMP Obstetrics History GPAL:G 1 P 1 0 0 1 Type Value Full Term 1 Living 1 Total 1 Immunizations Vaccine Type Date Status Note Provider Nam e and Address Organization Details Recorded Time Influenza, split virus, quadrivalent, PF 12/26/2017 completed Not Available [facility] 05:02:29 Past Encounters Encounter ID Performer Location Encounter Start Date Encounter Closed Date Diagnosis/Indication Diagnosis SNOMED-CT Code Diagnosis ICD10 Code Diagnosis IMO Codes Diagnosis Note [id number] [facility] _ATHENA_M IGRATION_ DEFAULT_1 _1 , 07/21/2020 00:00:00 07/21/2020 15:45:42 [id number] VIPUL Jackson [address] [address] 08/19/2020 00:00:00 08/19/2020 14:30:16 [id number] [facility] ic_Gateway _ATHENA_M IGRATION_ DEFAULT_1 _1 , 10/13/2020 00:00:00 10/13/2020 14:35:51 [id number] Yohana Alberto MD [address] [address] 10/14/2020 00:00:00 10/14/2020 20:25:52 [id number] [facility] ic_[facility] _ATHENA_M IGRATION_ DEFAULT_1 _1 , 10/20/2020 00:00:00 10/20/2020 11:27:02 [id number] [facility] ic_[facility] _ATHENA_M IGRATION_ DEFAULT_1 _1 , 01/05/2021 00:00:00 01/05/2021 11:15:24 [id number] Yohana Alberto MD [facility] [place] [address] [place] [address] 05/13/2021 00:00:00 05/13/2021 13:54:55 [id number] VIPUL Jackson [facility] [place] [address] [place] [address] 06/16/2021 00:00:00 06/16/2021 19:57:14 [id number] MARTELL Marmolejo [facility] [place] [address] [place] [address] 07/12/2021 00:00:00 07/12/2021 10:53:40 [id number] MARTELL Marmolejo [facility] [place] [address] [place] [address] 08/24/2021 00:00:00 08/24/2021 12:49:24 [id number] MARTELL Marmolejo [facility] [place] [address] [place] [address] 10/14/2021 00:00:00 10/14/2021 13:57:19 [id number] VIPUL Jackson [facility] [place] [address] [place] [address] 10/27/2021 00:00:00 10/27/2021 16:07:06 [id number] Yohana Alberto MD [facility] [place] [address] [place] [address] 12/29/2021 00:00:00 12/29/2021 14:00:59 [id number] Yohana Alberto MD [facility] [place] [address] [place] [address] 01/13/2022 00:00:00 01/13/2022 12:42:28 [id number] Yohana Alberto MD [facility] [place] [address] [place] [address] 01/25/2022 00:00:00 01/25/2022 14:01:08 [id number] Yohana Alberto MD [facility] Primary Care [facility] [address] [facility] [address] [place] [address] 03/08/2022 00:00:00 03/08/2022 13:37:56 [id number] Yohana Alberto MD [facility] Primary Care [facility] [address] [facility] [address] [place] [address] 05/25/2022 14:47:10 05/27/2022 03:56:15 [id number] VIPUL Jackson [facility] Primary Care [address] [place] [address] 08/09/2022 14:04:03 08/09/2022 15:33:17 Mixed anxiety and depressive disorder [id number] F41.8 ChronicNot well controlled at this time. [...] --RTO 4 weeks for f/u on medication [id number] Yohana Alberto MD [facility] Primary Care [address] [place] [address] 2022 11:03:46 2022 11:37:41 Mixed anxiety and depressive disorder 528866741 F41.8 She has been on buspirone and [...] O 4 weeks for f/u on medication [id number] VIPUL Jackson [facility] Primary Care [address] [place] [address] 10/11/2022 09:29:05 10/11/2022 10:00:59 [id number] Yohana Alberto MD [facility] Primary Care [address] [place] [address] 11/01/2022 10:20:38 11/01/2022 11:03:46 Hyperprolactinemia [id number] E22.1 N64.52 RecurrentS x began after starting depo-prove ra injections .Prolactin 29.3 (12/29/21) Per pt, MRI brain ordered by OB provider a few years ago was normal. Mixed anxi ety and depressive disorder 120159250 F41.8 ChronicNot well controlled at this time. Failed sertraline and buspirone- -Mood Disorder-e ncouraged pt to consider counseling , referral generated. Denies any SI/HI at this time. Increase fluoxetine to 40mg daily. Ok to increase buspirone to TID dosing prn. Trichomonal vaginitis 27 [id number] A59.00 New problemUri ne positive for trich (10/11/22)Pt did not start metronidaz ole as directed b/c she didn't believe she was actually positive and went to ob provider for second opinion. Pt states she got the confirmati on yesterday. Will p/u the meds today and start them tomorrow. [id number] Yohana Alberto MD [facility] Primary Care [facility] [address] [facility] [address] [place] [address] 02/02/2023 10:04:17 02/02/2023 10:35:16 [id number] Yohana Alberto MD [facility] Primary Care [address] [place] [address] 04/25/2023 10:15:48 04/25/2023 12:38:18 Depressive disorder 87389600 F32.A -chronic, stable with use of zoloft 25mg-feels like emotional roller coaster-sh e would like to increase-t rial sertraline 50mg-denie s SI/HI currently, but did have SI back in January-n ew referral to psychiatri given Dysmenorrhea [id number] N 94.6 -has not had a period in the last 2 months-rec ently stopped depo-has been trying to get and would like to rule out-lab obtained Impacted c erumen in right ear [id number] 299583 H61.21 right ear irrigated Screening for disorder 619330854 Z13.9 Anemia 507603491 D64.9 -chronic, stable-lab s obtained Acute otitis externa 302 73388 H60.509 -cerumen removed from right ear-still noting possible bacterial/ fungal infection- trial ciprodex-f /u in 1 week-possi ble ENT referral if no improvemen t with meds and another possible irrigation [id number] Yohana Alberto MD [facility] Primary Care [address] [place] [address] 05/03/2023 09:49:15 05/03/2023 10:39:40 [id number] Yohana Alberto MD [facility] Primary Care [facility] [address] [facility] [address] [place] [address] 06/14/2023 10:47:41 06/14/2023 11:55:19 Dental abscess [id number] K04.7 -dental abscess noted since last Sunday-p ics in chart-pt noting periods of feeling feverish, uses tylenol as needed-helga n rated at 5/10, 10/10 earlier this morning prior to tylenol-re quests cephalexin suspension , sent ,-[facility] ed to f/u with dentist MARCIAL Health Concerns Section Related Observation LastModified by Organization Dorothy ls LastModified Time None Recorded Concern Status LastModified by Organization Details LastModified Time None Recorded Advance Directives Directive N: Payers Insurance Date Sequence Insurance Name Policy Number Policy Ortiz Covered Member ID Ortiz Member ID Guarantor Name 08/06/2024 1 [facility] (MEDICAID HMO) [id number] Mani Allen [id number] Mani Allen Notes Date Note Type Note [...] been on the Prozac. VIPUL Jackson [address], [place], [address], [employer] 11/01/2022 19:07:39 04/25/2023 text/html Pt is here for f/u for depression, blood levels, and ear problems JUANCARLOS Graham [address], [place], [address], [employer] 04/25/2023 11:20:13 06/14/2023 text/html pt is a phone visit for oral abscess JUANCARLOS Graham [address], [facility] [address], [place], [address], [place] - [facility] 06/14/2023 11:47:46 OBGyn Episode No OBEpisode recorded.
--- OUTSIDE RECORDS SUMMARY | 2024-12-02 11:44 | XMS_ITS | Clinical Summary ---
Author Organization [facility] [place] [facility] Address [address] [address] Care Team Providers Care Military Administrative Technician Name Role Phone Unavailable Primary Care Provider [...] 157.5 cm (5' 2) 01/24/2022 10:35 AM MENTAL HEALTH DIRECTOR Body Mass Index 29.63 01/24/2022 10:35 AM MENTAL HEALTH DIRECTOR Plan of Treatment Health Maintenance Due Date [...]
--- OUTSIDE RECORDS SUMMARY | 2024-12-02 11:44 | XMS_ITS | Clinical Summary ---
Author Organization [facility] Address [address] [address] Care Team Providers Care Chain Builder Name Role Phone Koko Rodriguez MD Primary Care Provider [phone] Source Comments [facility],non-owned Affiliates and Associated Physician Practices is amultiple site organization consisting of ambulatory clinics and hospital sitesin [place], [place], [place] and [place]. This disclosure is being madepursuant to the Care Everywhere program and may not contain all information available regarding this patient. Last updated 17.[facility] Allergies Active Allergy Reactions Criticality Noted Date [...] Sex Assigned at Female 03/04/2024 6:36 AM PROP ATTENDANT Legal Sex Female 9:54 AM PROP ATTENDANT Gender Identity Female 03/04/2024 6:36 AM PROP ATTENDANT Sexual Orientation Bisexual 03/04/2024 6: 36 AM PROP ATTENDANT Last Filed Vital Signs Vital Sign Reading [...] VACCINE (1 - 3-dose SCDM series) 2021 DEPRESSION SCREENING 03/05/2024 COVID-19 VACCINE (1 - 2023-2 5 season) 2024 INFLUENZA VACCINE (#1) 2024 12/26/2017 ZOSTER VACCINE [...] patient's age to complete this topic Insurance [facility] Care Teams Chain Builder Relationship Specialty Start Date End Date Koko Rodriguez MD [address] [place] [address] PCP - General Obstetrics and Gynecology 01/30/24
--- OUTSIDE RECORDS SUMMARY | 2024-12-02 11:44 | XMS_ITS | Clinical Summary ---
Author Organization [facility] Address [address] [place] [address] Phone Care Team Providers Care Principal Software Engineer Name Role Phone Rosy Brannon SINGING MESSENGER, [facility] Primary Care Provider Allergies Active Allergy [...] on file Legal Sex Female 1:57 PM BOOTH OPERATOR Gender Identity Not on file Sexual [...] Insurance MEDICAID [employer] Care Teams Principal Software Engineer Relationship Specialty Start Date End Date Rosy Brannon, SINGING MESSENGER, SMELTER CHARGER [address] [place] [address] PCP - General Certified Nurse Practitioner 07/10/17
[2024-12-02 12:29] LABS: Hepatitis B Surface Antigen Negative (Negative); Syphilis IgG/IgM Antibody Non-Reactive (Nonreactive)
[2024-12-02 12:35] LABS: HAV RESULT Negative (Negative); Hepatitis B Core IgM Result Negative (Negative)
[2024-12-02 12:39] LABS: HIV 1/2 Ab P24 Ag Result Negative (Negative)
[2024-12-03 05:08] LABS: HSV 1 IgG, Type Spec Reactive (Non Reactive); HSV 2 IgG, Type Spec Non Reactive (Non Reactive)
== END 2024-12-02 11:11 | disposition home or self-care (01) ==
LOC: ANHLAB 11:12
PROVIDERS: Visit Provider Obstetrics & Gynecology
DX: Z11.3 Encounter for screening for infections with a predominantly sexual mode of transmission (principal)
CPT/HCPCS: 36415; 80074; 86593; 86695; 86696; 86703; G0432

== ENCOUNTER 2025-01-01 06:26 | Emergency (ER) | payer OTHER, SELFPAY ==
--- OUTSIDE RECORDS SUMMARY | 2025-01-01 06:28 | XMS_ITS | Clinical Summary ---
Author Organization [facility] [employer] Address [address] [place] [address] Care Team Providers Care Waitstaff Captain Name Role Phone Koko Rodriguez MD Primary Care Provider [phone] Source Comments [facility] [employer],non-owned Affiliates and Associated Physician Practices is amultiple site organization consisting of ambulatory clinics and hospital sitesin [place], [place], [place] and [place]. This disclosure is being madepursuant to the Care Everywhere program and may not contain all information available regarding this patient. Last updated 17.[facility] [employer] Allergies Active Allergy Reactions Criticality Noted Date [...] Sex Assigned at Female 03/04/2024 6:36 AM CASHIER CREDIT Legal Sex Female 9:54 AM CASHIER CREDIT Gender Identity Female 03/04/2024 6:36 AM CASHIER CREDIT Sexual Orientation Bisexual 03/04/2024 6: 36 AM CASHIER CREDIT Last Filed Vital Signs Vital Sign Reading [...] patient's age to complete this topic Insurance [facility] Care Teams Waitstaff Captain Relationship Specialty Start Date End Date Koko Rodriguez MD [address] [place] [address] PCP - General Obstetrics and Gynecology 01/30/24
--- OUTSIDE RECORDS SUMMARY | 2025-01-01 06:28 | XMS_ITS | Clinical Summary ---
Author Organization [facility] Address [address] [place] [address] Phone Care Team Providers Care Floorhand Name Role Phone Rosy Brannon WEAVING LOOM OPERATOR, [facility] Primary Care Provider Allergies Active Allergy [...] on file Legal Sex Female 1:57 PM PAN RECLAIM PROCESSOR Gender Identity Not on file Sexual Orientation [...] Insurance MEDICAID [employer] Care Teams Floorhand Relationship Specialty Start Date End Date Rosy Brannon, WEAVING LOOM OPERATOR, SENIOR DATA WAREHOUSE ARCHITECT [address] [place] [address] PCP - General Certified Nurse Practitioner 07/10/17
--- OUTSIDE RECORDS SUMMARY | 2025-01-01 06:28 | XMS_ITS | Clinical Summary ---
Author Organization [facility] Autumn [facility] Address [address] [place] [address] Care Team Providers Care Waste Picker Name Role Phone Unavailable Primary Care Provider [...] 157.5 cm (5' 2) 01/24/2022 10:35 AM POLICE DEPARTMENT SECRETARY Body Mass Index 29.63 01/24/2022 10:35 AM POLICE DEPARTMENT SECRETARY Plan of Treatment Health Maintenance Due Date [...]
--- OUTSIDE RECORDS SUMMARY | 2025-01-01 06:28 | XMS_ITS | Patient Health Record ---
Author Organization [facility] Address [address] [place] [address] Care Team Providers Care Machine Group Leader Name Role Phone Oneida Cope Primary Care Provider Jazzmine Hyatt [phone] Allergies Allergen (clinical drug ingredient) Drug/Non Drug Allergy documented on EMR Reaction Allergy Type Onset Date Status ibuprofen Ibuprofen hives Drug Allergy Active Iodine hives Drug Allergy Active amoxicillin Amoxicillin hives Drug Allergy Act amilcar aspirin Aspirin hives Drug Allergy Active clindamycin Clindamycin hives Drug Allergy Act amilcar escitalopram Escitalopram hives Drug Allergy A ctive sulfamethoxazole Sulfamethoxazole hives Drug Allergy Active Reason For Referral No Information Medications Medication SIG (Take, Route, Frequency, Duration) Notes Start Date End Date Status Sertraline HCl 25 MG 1 tablet Orally Onc e a day; Duration: 30 days 11/18/2024 Active hydrOXYzine Pamoate 25 MG 1 capsule at b edtime as needed Orally Once a day; Duration: 30 days 11/18/2024 Active Doxycycline Active Albuterol Sulfate Ac tive Social History Tobacco Use: Social History Observation Description Date Details (start date - stop date) Unknown Sex Assigned At : Social History Observation Description Sex Assigned At Female Tobacco Control (Standard) Question Answer Notes Tobacco use: Uses tobacco in other forms Additional Findings: Tobacco user e-cigarette Problems Problem Type SNOMED Code ICD Code Onset Dates Problem Status W/U Status Risk Notes Problem Overweight (369708405) Over weight (E66.3) Active confirmed Problem Severe recurrent major depression without psychotic features (83972823) MDD (major depressive disorder), recurrent episode, severe (F33.2) Active confirmed Problem Nicotine dependence (89945553) Nicotine dependence (F17.200) Active confirmed Problem Hypoglycemia (739869121) Hypoglycemia (E16.2) Active confirmed Vital Signs Height 5ft 2in in 11/18/2024 Weight 175 lb lbs 11/18/2024 BMI 32 kg/m2 11/18/2024 Encounters Encounter Location Date Provider Diagnosis [address] [place] [address] 11/18/2024 Jazzmine Olena MDD (major depressive disorder), recurrent episode, severe F33.2 ; Nicotine dependence F17.200 and Over weight E66.3 [address] [place] [address] 11/18/2024 Oneida Cope MDD (major depressive disorder), recurrent episode, severe F33.2 Assessments Encounter Date Diagnosis (ICD Code) Assessment Notes Treatment Notes Treatment Clinical Notes Section Notes 11/18/2024 MDD (major depressive disorder), recurrent episode, severe (ICD-10 - F33.2) 11/18/2024 Nicotine dependence (ICD-10 - F17.200) 11/18/2024 MDD (major depressive disorder), recurrent episode, severe (ICD-10 - F33.2) 11/18/2024 Over weight (ICD-10 - E66.3) 11/18/2024 Other Patient is a 29-year-old female who is presenting for an initial psychiatric evaluation over the phone, she is located in [place]. Patient went to [facility] emergency room on 11-12-24 for having suicidal ideation. Patient was not admitted to the psychiatric hospital, and she denies current suicidal or homicidal ideation. Current PHQ-9 is 20 and LAURA-7 is 9. Patient denies any subjective anxiety and reports depression at 10/10. Patient reports depressed mood, Reports anhedonia, Reports amotivation, Reports sleep problems, and Reports fatigue/loss of energy. Patient has done well in the past on Sertraline and would like to restart that, will start at low dose and titrate up if needed. Patient reports poor sleep and has taken hydroxyzine in the past and would like to start this prn for sleep. Patient is to start therapy on 11-21-24 at [facility]. No acute safety concerns the time of this appt, she is agreeable to treatment plan and was provided an opportunity to ask questions. Patient agrees to 4 week follow up to allow medications to work properly, but will call for sooner appointment if symptoms do not improve or get worse. May self-administer medications or be administered own oral medications per [facility] protocols. Reviewed prescription monitoring program, no issues. Provided informed consent with understanding of side effects, adverse effects, risks and benefits as well as alternative treatments and with the above recommended medications & other aspects of the treatment program. Agrees to return sooner if symptoms worsen or suicidal or homicidal ideations occur. Plan Of Treatment No Information Insurance Providers Payer Name Payer Address Payer Phone Subscriber Number Group Number Insured Name Patient Relationship to Insured Coverage Start Date Coverage End Date [employer] [address] [place] [address] [id number] Mani Allen Self - patient is the insured 4 [employer] [address] [place] [address] [id number] Mani Allen Self - patient is the insured 5 Medical (General) History Medical History History ICD Code anxiety depression bipolar Pre-diabetes R73.09 Chronic UTI N39.0 Hypoglycemia E16.2
[2025-01-01 06:33] VITALS: BP 139/92; PULSE 98; RESP 18; TEMP 36.9; O2SAT 99
[2025-01-01 06:41] LABS: BEDSIDEPREGUCG Negative (Negative)
[2025-01-01 06:52] LABS: Add Urine Microscopic? YES; Appearance Urine Clear (Clear); Glucose Urine UA Negative (Negative); Leukocyte Esterase Ur 2+ LEU/UL (Negative); Nitrate Urine Negative (Negative); Non Pathogenic Casts 0-2; Specific Grav Ur 1.008 (1.001-1.035)
--- OUTSIDE RECORDS SUMMARY | 2025-01-01 07:35 | XMS_ITS | Clinical Summary ---
Author Organization [facility] Address [address] [place] [address] Phone Care Team Providers Care Windrower Operator Name Role Phone Rosy Brannon FRAUD REPRESENTATIVE, [facility] Primary Care Provider Allergies Active Allergy [...] on file Legal Sex Female 1:57 PM STUNTMAN Gender Identity Not on file Sexual Orientation [...] Insurance MEDICAID [employer] Care Teams Windrower Operator Relationship Specialty Start Date End Date Rosy Brannon, FRAUD REPRESENTATIVE, BODY WORKER [address] [place] [address] PCP - General Certified Nurse Practitioner 07/10/17
--- OUTSIDE RECORDS SUMMARY | 2025-01-01 07:36 | XMS_ITS | Clinical Summary ---
Author Organization [facility] Autumn [facility] Address [address] [place] [address] Care Team Providers Care Sheet Sewer Name Role Phone Unavailable Primary Care Provider [...] 157.5 cm (5' 2) 01/24/2022 10:35 AM SEED SALES MANAGER Body Mass Index 29.63 01/24/2022 10:35 AM SEED SALES MANAGER Plan of Treatment Health Maintenance Due Date [...]
--- OUTSIDE RECORDS SUMMARY | 2025-01-01 07:36 | XMS_ITS | Clinical Summary ---
Author Organization [facility] [employer] Address [address] [place] [address] Care Team Providers Care Polo Coach Name Role Phone Koko Rodriguez MD Primary Care Provider [phone] Source Comments [facility] [employer],non-owned Affiliates and Associated Physician Practices is amultiple site organization consisting of ambulatory clinics and hospital sitesin [place], [place], [place] and [place]. This disclosure is being madepursuant to the Care Everywhere program and may not contain all information available regarding this patient. Last updated 17.[facility] [employer] Allergies Active Allergy Reactions Criticality Noted Date [...] Sex Assigned at Female 03/04/2024 6:36 AM ENGRAVER SIGNATURE Legal Sex Female 9:54 AM ENGRAVER SIGNATURE Gender Identity Female 03/04/2024 6:36 AM ENGRAVER SIGNATURE Sexual Orientation Bisexual 03/04/2024 6: 36 AM ENGRAVER SIGNATURE Last Filed Vital Signs Vital Sign Reading [...] patient's age to complete this topic Insurance [facility] Care Teams Polo Coach Relationship Specialty Start Date End Date Koko Rodriguez MD [address] [place] [address] PCP - General Obstetrics and Gynecology 01/30/24
--- NOTE | 2025-01-01 07:39 | ED.GENADULT ---
HPI - General Adult General Chief complaint: Urogenital-Female Stated complaint: R flank pain Time Seen by Provider: 01/01/25 07:06 Source: patient Mode of arrival: ambulatory Limitations: no limitations History of Present Illness HPI narrative: 29-year-old with a history of anxiety, depression, recurrent UTI presents to ER with the complaints of dysuria since 3:00 a.m. this morning. She denies any fever or chills. No blood in the urine. Onset (ago): hour(s) (4) Severity: mild Quality: burning Relieving factors: none Associated symptoms: denies other symptoms Related Data Home Medications ?Medication ?Instructions ?Recorded ?Confirmed ?Last Taken ?Type albuterol sulfate 90 mcg/actuation inhalation 07/22/20 12/02/24 Unknown History aerosol inhaler (ProAir HFA) sertraline 25 mg tablet 25 mg PO DAILY 12/02/24 12/02/24 Unknown History Allergies Allergy/AdvReac Type Severity Reaction Status Date / Time escitalopram (From Lexapro) Allergy Severe Hives Verified 01/01/25 06:26 amoxicillin Allergy Mild Rash Verified 01/01/25 06:26 Iodinated Contrast Media Allergy Mild Rash Verified 01/01/25 06:26 aspirin Allergy Swelling Verified 01/01/25 06:26 of Lip/Tongue/Throat clindamycin Allergy Itching Verified 01/01/25 06:26 ibuprofen Allergy Swelling Verified 01/01/25 06:26 of Lip/Tongue/Throat latex Allergy Itching Verified 01/01/25 06:26 seafood AdvReac Mild Hives Uncoded 12/02/24 10:28 Review of Systems Review of Systems: All systems reviewed & are unremarkable except as noted in HPI and below Constitutional: Constitutional: Reports no additional constitutional complaints Eyes: Eyes: Reports no additional eye complaints ENT: Reports system reviewed and no additional complaints, except as documented Cardiovascular: Cardiovascular: Reports no additional cardiovascular complaints Respiratory: Respiratory: Reports no additional respiratory complaints Gastrointestinal: Gastrointestinal: Reports no additional gastrointestinal complaints Musculoskeletal: Musculoskeletal: Reports no additional musculoskeletal complaints PMFSH Past Medical History Medical History Initiation of Depo Provera Encounter for screening examination for sexually transmitted disease Depression History of kidney stones Surveillance for Depo-Provera contraception Nipple discharge in antepartum period Breast lump or mass Urinary tract infection Pneumonia Migraines Anemia Overweight (BMI 25.0-29.9) Headache GERD (gastroesophageal reflux disease) Anxiety Asthma Surgical History Surgical History No history of previous surgery Family History Family History Mother Cancer Grandparent Diabetes mellitus paternal grandmother Hypertension paternal grandmother Other Seizure daughter Social History Social History (Updated 12/02/24 @ 10:29 by Ginette Rocha [facility]) Smoking status: Former smoker Tobacco type: cigarettes and e-cigarettes/vaping Second hand tobacco smoke exposure: No Smoking end date: 05/04/23 Alcohol intake: former Alcohol use details: once a month-wine coolers 07/09/2024 sober for 1 year and 5 months/ ss Substance use: former Substance use type: does not use Other substance usage details: highschool Do You Feel Safe in your Home?: Yes Lack of Transportation: YES Lack of Food: Often True Current Housing: I Have Housing Concerned About Future Housing: Decline to Answer Difficulty Paying Gas/Electric Bills: No Difficulty Paying for Meds: YES Currently Unemployed: No Education: High School Diploma/GED Difficulty w/ Childcare or Family Care: YES Living arrangements: other Additional living arrangements comments: lives with grandmother Occupation/Education: unemployed Additional occupation/education comments: [employer] Gender identity (if verbalized by the patient): Female Sexual Orientation (if Verbalized by the Patient): Bisexual Spiritual care concerns: No Agree to blood products: Yes Exam Narrative: GENERAL: Well-appearing, well-nourished, and in no acute distress. HEAD: Normocephalic, atraumatic. EYES: PERRLA and EOMI. ENT: Nares clear, no rhinorrhea or epistaxis. Mucous membranes moist. NECK: Supple. CHEST: Clear to auscultation. No respiratory distress. HEART: Regular rate and rhythm. No murmur heard. Normal peripheral pulses. ABDOMEN: Soft, nontender, nondistended, normal active bowel sounds. EXTREMITIES: Normal range of motion. No edema. SKIN: Warm, dry, no rash. NEURO: No focal deficits. Alert and oriented x3. PSYCH: Normal mood and affect. Course Course Emergency Course: Informed patient about the lab work advised her to take antibiotic I was told by the nurse that she cannot swallow pills will give a liquid antibiotic Vital Signs Vital signs: Vital Signs Temperature 36.9 C 01/01/25 06:33 Pulse Rate 98 01/01/25 06:33 Respiratory Rate 18 01/01/25 06:33 Blood Pressure 139/92 H 01/01/25 06:33 Pulse Oximetry 99 01/01/25 06:33 Oxygen Delivery Room Air 01/01/25 06:33 Temperature 36.9 C 01/01/25 06:33 Pulse Rate 98 01/01/25 06:33 Respiratory Rate 18 01/01/25 06:33 Blood Pressure 139/92 H 01/01/25 06:33 Pulse Oximetry 99 01/01/25 06:33 Oxygen Delivery Room Air 01/01/25 06:33 Medical Decision Making Vital Signs Vital Signs: Vital Signs Temperature 36.9 C 01/01/25 06:33 Pulse Rate 98 01/01/25 06:33 Respiratory Rate 18 01/01/25 06:33 Blood Pressure 139/92 H 01/01/25 06:33 Pulse Oximetry 99 01/01/25 06:33 Oxygen Delivery Room Air 01/01/25 06:33 Temperature 36.9 C 01/01/25 06:33 Pulse Rate 98 01/01/25 06:33 Respiratory Rate 18 01/01/25 06:33 Blood Pressure 139/92 H 01/01/25 06:33 Pulse Oximetry 99 01/01/25 06:33 Oxygen Delivery Room Air 01/01/25 06:33 Lab Data Labs: Lab Results 01/01/25 01/01/25 Range/Units 06:38 06:39 Urine Color Yellow (Yellow) Urine Appearance Clear (Clear) Urine pH 6.0 (5.0-9.0) Ur Specific Casey 1.008 (1.001-1.035) Urine Protein Negative (Negative) mg/dL Urine Glucose (UA) Negative (Negative) mg/dL Urine Ketones Negative (Negative) mg/dL Ur Blood (Man) Negative (Negative) Urine Nitrate Negative (Negative) Urine Bilirubin Negative (Negative) Urine Urobilinogen 0.2 (<2.0) mg/dL Leukocyte Esterase Rfl 2+ H (Negative) LOTTIE/UL Urine RBC 0-2 (0-2) /hpf Urine WBC 21-50 H (0-3) /hpf Ur Squamous Epith Cells None seen (Few) /hpf Urine Bacteria None seen /hpf Urine Casts 0-2 POC Urine HCG, Qual Negative (Negative) Discharge Plan Discharge Clinical Impression: Cystitis Patient Disposition: Home Condition: Stable Instructions: Urinary Tract Infection in Women (ED) Patient Language: Uzbek Prescriptions: New cephalexin 250 mg/5 mL suspension for reconstitution 500 mg PO Q12H 5 Days Qty: 100 0RF No Action sertraline 25 mg tablet 25 mg PO DAILY albuterol sulfate [ProAir HFA] 90 mcg/actuation HFA aerosol inhaler INHALATION Solosec 2 gram granules del release in packet 1 packet PO ONCE Qty: 1 0RF Rx Instructions: as a single dose Follow-up/Referrals: Travis Up MD [Physician, Family Practice] UNKNOWN,DOCTOR [Primary Care Provider] Time of Disposition: 07:42
[2025-01-01 07:40] VITALS: BP 107/73; PULSE 91; RESP 89; O2SAT 99
--- NOTE | 2025-01-01 07:43 | PC.NURSE ---
Pt requesting liquid cephalexin to be sent into pharmacy. EDP Dr. Brandon brennan.
[2025-01-01 08:05] VITALS: BP 103/61; PULSE 84; RESP 16; TEMP 36.7; O2SAT 98
== END 2025-01-01 08:06 | disposition home or self-care (01) ==
PROVIDERS: Student in an Organized Health Care Education/Training Program; Emergency Provider Family Medicine
DX: N30.90 Cystitis, unspecified without hematuria (principal); J45.909 Unspecified asthma, uncomplicated; K21.9 Gastro-esophageal reflux disease without esophagitis; F41.9 Anxiety disorder, unspecified; F32.A Depression, unspecified; Z87.442 Personal history of urinary calculi; Z87.01 Personal history of pneumonia (recurrent); Z86.2 Personal history of diseases of the blood and blood-forming organs and certain disorders involving the immune mechanism; Z87.891 Personal history of nicotine dependence; Z79.899 Other long term (current) drug therapy
CPT/HCPCS: 81001; 81025; 87086; 99283

== ENCOUNTER 2025-01-19 12:40 | Outpatient (CLI) | payer OTHER, SELFPAY ==
[2025-01-19 14:01] LABS: Syphilis IgG/IgM Antibody Non-Reactive (Nonreactive)
[2025-01-19 14:06] LABS: HIV 1/2 Ab P24 Ag Result Negative (Negative); Hepatitis B Surface Antigen Negative (Negative)
[2025-01-19 14:12] LABS: HAV RESULT Negative (Negative); Hepatitis B Core IgM Result Negative (Negative)
[2025-01-20 07:09] LABS: HSV 1 IgG, Type Spec Reactive (Non Reactive); HSV 2 IgG, Type Spec Non Reactive (Non Reactive)
== END 2025-01-19 12:41 | disposition home or self-care (01) ==
LOC: ANHLAB 12:42
PROVIDERS: PCP Nurse Practitioner Family; Visit Provider Obstetrics & Gynecology
DX: A64 Unspecified sexually transmitted disease (principal)
CPT/HCPCS: 36415; 80074; 86593; 86695; 86696; 86703; G0432